=== PATIENT | male | born 1955 | race Caucasian/White ===

== ENCOUNTER 2022-11-17 10:41 | Observation (INO) | payer OTHER ==
--- OUTSIDE RECORDS SUMMARY | 2022-11-17 10:45 | XMS REPORT | Continuity of Care Document ---
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 2-08 Or thope s s 00:00: dic 00 Sports Medicin e Displaceme Displaceme Problem Active A zalea nt of nt of 2-08 [facility] cervical Cervical 00:00: dic interverte Interverte 00 Sp orts bral disc bral Disc Medi amna without without e myelopathy Myelopathy Cervico-oc Cervico-oc Problem Active A zalea cipital cipital 2-08 [facility] neuralgia Neuralgia 00:00: dic 00 Sports Medicin e 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 00:00: dic of left of Left 00 Sports wrist Wrist Medicin e 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 00:00: dic of right of Right 00 Sports wrist Wrist Medicin e Ulnar Ulnar Problem Active 2021-02 Lisa neuropathy Neuropathy 0-20 Or thope of left of Left 00:00: dic arm Arm 00 Sports Medicin e Ulnar Ulnar Problem Active 2021-02 Lisa neuropathy Neuropathy 0-20 Or thope of right of Right 00:00: dic arm Arm 00 Sports Medicin e Cervical Cervical Problem Active Azale a radiculopa Radiculopa 9-20 Or thope thy thy 00:00: dic 00 Sports Medicin e Osteoarthr Osteoarthr Problem Active A shraddhasanjayjorge itis of itis of 2-20 Orthope knee Knee 00:00: dic 00 Sports Medicin e Knee pain Knee Pain Problem Active Aza sommer 2-20 Orthope 00:00: dic 00 Sports Medicin e Lumbar Lumbar Problem Active 2017-02 Lisa disc Disc 2-31 Orthope prolapse Prolapse 00:00: dic with with 00 Sports radiculopa Radiculopa Me dicin thy thy e Degenerati Degenerati Problem Active 2017-02 A emily on of on of 2-31 [facility] lumbar Lumbar 00:00: dic interverte Interverte 00 Sp orts bral disc bral Disc Medi amna e Neoplasm Neoplasm Problem Active 2017-02 Azasanjay a of of 2-26 Orthope uncertain Uncertain 00:00: dic behavior Behavior 00 Sports of of Medicin connective Connective e and soft and Soft tissue Tissue Carpal Carpal Problem Active 2017-02 Lisa tunnel Tunnel 2-13 Orthope syndrome Syndrome 00:00: dic 00 Sports Medicin e 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 osteoarthr Osteoarthr 2-13 Or thope itis itis 00:00: dic 00 Sports Medicin e Degenerati Degenerati Problem Active 2017-02 A zalea ve joint ve Joint 2-13 Orthop e disease of Disease of 00:00: di c hand Hand 00 Sports Medicin e Ulnar Ulnar Problem Active 2017-02 Lisa nerve Nerve 2-13 Orthope entrapment Entrapment 00:00: di c at elbow at Elbow 00 Sports Medicin e Lumbar Lumbar Problem Active 2017-02 Lisa radiculopa Radiculopa 2-07 Or thope thy thy 00:00: dic 00 Sports Medicin e 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:00: dic syndrome Syndrome 00 Sports Medicin e Connective Connective Problem Active 2017-02 A emily tissue and Tissue and 1-15 Or thope disc Disc 00:00: dic stenosis Stenosis 00 Sports of of Medicin interverte Interverte e bral bral foramina Foramina Spondyloli Spondyloli Problem Active 2017-02 A emily sthesis sthesis 1-15 Orthope 00:00: dic 00 Sports Medicin e Bilateral Bilateral Problem Active 2017-02 Aza sommer carpal Carpal 1-15 Orth[facility] tunnel Tunnel 00:00: dic syndrome Syndrome 00 Sports Medicin e Chronic Chronic Problem Active 2017-02 Lisa pain Pain 1-15 [facility] syndrome Syndrome 00:00: dic 00 Sports Medicin e Acquired Acquired Problem Active 2014-02 Azale a hallux Hallux 1-06 Orthope malleus Malleus 00:00: dic 00 Sports Medicin e Metatarsal Metatarsal Problem Active 2014-02 A emily annalise annalise 106 Orthope 00:00: dic 00 Sports Medicin e Spinal Spinal Problem Active Lisa stenosis Stenosis 6-30 Orthop e of lumbar of Lumbar 00:00: dic region Region 00 Sports Medicin e Lumbosacra Lumbosacra Problem Active A shraddhalea l l 6-11 Orthope spondylosi Spondylosi 00:00: di c s without s without 00 Spor ts myelopathy Myelopathy Me dicin e Radiculiti Radiculiti Problem Active A emily s due to s Due to 6-11 Orthop e displaceme Displaceme 00:00: di c nt of nt of 00 Sports lumbar Lumbar Medicin interverte Interverte e bral disc bral Disc Degenerati Degenerati Problem Active A emily on of on of 6-11 Orthope cervicotho Cervicotho 00:00: di c racic racic 00 Sports interverte Interverte Me dicin bral disc bral Disc e Low back Low Back Problem Active Azale a pain Pain 6-11 Orthope 00:00: dic 00 Sports Medicin e Hypertensi Hypertensi Problem Active A zalea ve ve 09 [facility]ope disorder Disorder 00:00: dic 00 Sports Medicin e Procedure Procedure Problem Active Aza sommer aiding Aiding 4-22 Orthope diagnosis Diagnosis 00:00: dic 00 Sports Medicin e Multiple-l Multiple-l Problem Active Jorge brumfield 6-03 [facility]ope thoracic Thoracic 00:00: dic spondylosi Spondylosi 00 Sp orts s with s with Medicin radiculopa Radiculopa e thy thy Complete Complete Problem Active Azale a lesion of Lesion of 6-03 Orth ope cervical Cervical 00:00: dic spinal Spinal 00 Sports cord at C6 Cord at C6 Me dicin level Level e Arthropath Arthropath Problem Active A emily y of right y of Right 9-21 Or thope shoulder Shoulder 00:00: dic 00 Sports Medicin e Pain in Pain in Problem Active Lisa thoracic Thoracic 2-10 Orthop e spine Spine 00:00: dic 00 Sports Medicin e Allergies, Adverse Reactions, Alerts Allergy Allergy Status Severity Reaction(s) Onset Inactive Treating Comm ents Source Name Type Date Date Clinician No Known DA Active GA 2017-02 [facility] [place] [facility] 00:00: [facility] 00 [facility] No Known DA Active GA 2017-02 [facility]23 [place] [facility] 00:[facility]: [facility] 00 [facility] hydrocod DA Active [place] 2017-02 [facility] [place] 00:00: [facility] 00 dic [facility] No Known DA Active GA 2017-02 [facility] [place] [facility] 00:[facility]: [facility]ope s 00 dic [facility]ospita [facility] hydrocod DA Active [place] 2017-02 [facility] [place] 00:00: [facility] 00 dic [facility]ospita [facility] hydrocod DA Active GA 2014-02 [facility] [place] 00:00: [facility] 00 dic [facility]ospita l Hydrocod Allergy Active Lisa one to 9-10 Orthope substanc 00:00: dic e 00 Sports Medicin e Social History Smoking Status Start Date Stop Date Source Never Smoker Lisa [facility] Medicine Medications Ordered Filled Start Stop Current Ordering Indication Dosage Frequency Signature Comments Components Source Medication Medication Date Date Medication? Clinician (SIG) Name Name lovastatin lovastatin 2017-02 No lovastatin Lisa 40 mg 40 mg 2-07 40 mg [facility] tablet RX tablet RX 00:00: tablet RX dic by other MD by other MD 00 by other Sports MD Daniella dickersonfalula venlafaxine 2017-02 No venlafaxin Lisa 75 mg 75 mg 2-07 e 75 mg Orthope tablet RX tablet RX 00:00: tablet RX dic by other MD by other 00 by other Sports MD Brewer e lovastatin lovastatin 2017-02 No lovastatin Lisa 40 mg 40 mg 2-07 40 mg [facility] tablet RX tablet RX 00:00: tablet RX dic by other MD by other 00 by other Sports MD Daniella ramesh venlafaxine venlafaxine 2017-02 No venlafaxin Lisa 75 mg 75 mg 2-07 e 75 mg Orthope tablet RX tablet RX 00:00: tablet RX dic by other MD by other 00 by other Sports MD Brewer e lovastatin lovastatin 2017-02 No lovastatin Lisa 40 mg 40 mg 2-07 40 mg [facility] tablet RX tablet RX 00:00: tablet RX dic by other MD by other 00 by other Sports MD Daniella ramesh venlafaxine venlafaxine 2017-02 No venlafaxin Lisa 75 mg 75 mg 2-07 e 75 mg Orth[facility] tablet RX tablet RX 00:00: tablet RX dic by other MD by other 00 by other Sports MD Brewer e lovastatin lovastatin 2017-02 No lovastatin Lisa 40 mg 40 mg 2-07 40 mg Orth[facility] tablet RX tablet RX 00:00: tablet RX dic by other MD by other 00 by other Sports MD Brewer e venlafaxine venlafaxine 2017-02 No venlafaxin Lisa 75 mg 75 mg 2-07 e 75 mg Orthope tablet RX tablet RX 00:00: tablet RX dic by other MD by other 00 by other Sports MD Brewer e lovastatin lovastatin 2017-02 No lovastatin Lisa 40 mg 40 mg 2-07 40 mg [facility] tablet RX tablet RX 00:00: tablet RX dic by other MD by other 00 by other Sports MD Brewer e venlafaxine venlafaxine 2017-02 No venlafaxin Lisa 75 mg 75 mg 2-07 e 75 mg Orthope tablet RX tablet RX 00:00: tablet RX dic by other MD by other 00 by other Sports MD Dixonin e lovastatin lovastatin 2017-02 No lovastatin Lisa 40 mg 40 mg 2-07 40 mg Orth[facility] tablet RX tablet RX 00:00: tablet RX dic by other MD by other MD 00 by other Sports Medicmarj e venlafaxine venlafaxine 2017-02 No venlafaxin Lisa 75 mg 75 mg 2-07 e 75 mg Orthope tablet RX tablet RX 00:00: tablet RX dic by other MD by other 00 by other Sports MD Daniella ramesh triamcinolo triamcinolo 2017-02 No triamcinol Lisa ne ne 1-15 one Orthope acetonide acetonide 00:00: acetonide dic 0.1 0.1 00 0.1 Sports %-emollient %-emollient %-emollien Medicin comb.no.45 comb.no.45 t e topical topical comb.no.45 cream cream topical cream triamcinolo triamcinolo 2017-02 No triamcinol Lisa ne ne 1-15 one Orthope acetonide acetonide 00:00: acetonide dic 0.1 0.1 00 0.1 Sports %-emollient %-emollient %-emollien Medicin comb.no.45 comb.no.45 t e topical topical comb.no.45 cream cream topical cream triamcinolo triamcinolo 2017-02 No triamcinol Lisa ne ne 1-15 one Orthope acetonide acetonide 00:00: acetonide dic 0.1 0.1 00 0.1 Sports %-emollient %-emollient %-emollien Medicin comb.no.45 comb.no.45 t e topical topical comb.no.45 cream cream topical cream triamcinolo triamcinolo 2017-02 No triamcinol Lisa ne ne 1-15 one Orthope acetonide acetonide 00:00: acetonide dic 0.1 0.1 00 0.1 Sports %-emollient %-emollient %-emollien Medicin comb.no.45 comb.no.45 t e topical topical comb.no.45 cream cream topical cream triamcinolo triamcinolo 2017-02 No triamcinol Lisa ne ne 1-15 one Orthope acetonide acetonide 00:00: acetonide dic 0.1 0.1 00 0.1 Sports %-emollient %-emollient %-emollien Medicin comb.no.45 comb.no.45 t e topical topical comb.no.45 cream cream topical cream amlodipine amlodipine No amlodipine Lisa 10 mg 10 mg 6-01 10 mg Orthope tablet tablet 00:00: tablet dic Sports Medicin e nabumetone nabumetone No nabumetone Lisa 750 mg 750 mg 6-01 750 mg Orthope tablet tablet 00:00: tablet dic Sports Medicin e amlodipine amlodipine No amlodipine Lisa 10 mg 10 mg 6-01 10 mg Orthope tablet tablet 00:00: tablet dic Sports Medicin e nabumetone nabumetone No nabumetone Lisa 750 mg 750 mg 6- 750 mg Orthope tablet tablet 00:00: tablet dic Sports Medicin e amlodipine amlodipine No amlodipine Lisa 10 mg 10 mg 6-01 10 mg Orthope tablet tablet 00:00: tablet dic Sports Medicin e nabumetone nabumetone No nabumetone Lisa 750 mg 750 mg 6-01 750 mg Orthope tablet tablet 00:00: tablet dic 00 Sports Medicin e amlodipine amlodipine No amlodipine Lisa 10 mg 10 mg 6-01 10 mg Orthope tablet tablet 00:00: tablet dic Sports Medicin e nabumetone nabumetone No nabumetone Lisa 750 mg 750 mg 6-01 750 mg [facility]ope tablet tablet 00:00: tablet dic Sports Medicin e amlodipine amlodipine No amlodipine Lisa 10 mg 10 mg 6-01 10 mg Orthope tablet tablet 00:00: tablet dic 00 Sports Medicin e nabumetone nabumetone No nabumetone Lisa 750 mg 750 mg 6-01 750 mg [facility] tablet tablet 00:00: tablet dic 00 Sports Medicin e amiloride 5 amiloride 5 No amiloride Lisa mg tablet mg tablet 1-27 5 mg Ortho pe 00:00: tablet dic Sports Medicin e Effexor XR Effexor XR No Effexor XR Lisa 150 mg 150 mg 1-27 150 mg Orthope capsule,ext capsule,ext 00:00: capsule,ex dic ended ended tended Sports release release release Medici n e Lotrel 10 Lotrel 10 No Lotrel 10 Lisa mg-40 mg mg-40 mg 1-27 mg-40 mg Ort hope capsule capsule 00:00: capsule dic 00 Sports Medicin e amiloride 5 amiloride 5 No amiloride Lisa mg tablet mg tablet 1-27 5 mg Ortho pe 00:00: tablet dic Sports Medicin e Effexor XR Effexor XR No Effexor XR Lisa 150 mg 150 mg 1-27 150 mg Orthope capsule,ext capsule,ext 00:00: capsule,ex dic ended ended tended Sports release release release Medici n e Lotrel 10 Lotrel 10 No Lotrel 10 Lisa mg-40 mg mg-40 mg 1-27 mg-40 mg Ort hope capsule capsule 00:00: capsule dic Sports Medicin e amiloride 5 amiloride 5 No amiloride Lisa mg tablet mg tablet 1-27 5 mg Ortho pe 00:00: tablet dic Sports Medicin e Effexor XR Effexor XR No Effexor XR Lisa 150 mg 150 mg 1-27 150 mg Orthope capsule,ext capsule,ext 00:00: capsule,ex dic ended ended tended Sports release release release Medici n e Lotrel 10 Lotrel 10 No Lotrel 10 Lisa mg-40 mg mg-40 mg 1-27 mg-40 mg Ort hope capsule capsule 00:00: capsule dic Sports Medicin e amiloride 5 amiloride 5 No amiloride Lisa mg tablet mg tablet 1-27 5 mg Ortho pe 00:00: tablet dic Sports Medicin e Effexor XR Effexor XR No Effexor XR Lisa 150 mg 150 mg 1-27 150 mg Orthope capsule,ext capsule,ext 00:00: capsule,ex dic ended ended tended Sports release release release Medici n e Lotrel 10 Lotrel 10 No Lotrel 10 Lisa mg-40 mg mg-40 mg 1-27 mg-40 mg Ort hope capsule capsule 00:00: capsule dic 00 Sports Medicin e amiloride 5 amiloride 5 No amiloride Lisa mg tablet mg tablet 1-27 5 mg Ortho pe 00:00: tablet dic 00 Sports Medicin e Effexor XR Effexor XR No Effexor XR Lisa 150 mg 150 mg 1-27 150 mg Orthope capsule,ext capsule,ext 00:00: capsule,ex dic ended ended 00 tended Sports release release release Medici n e Lotrel 10 Lotrel 10 No Lotrel 10 Lisa mg-40 mg mg-40 mg 1-27 mg-40 mg Ort hope capsule capsule 00:00: capsule dic 00 Sports Daniella ramesh amitriptyli amitriptyli No amitriptyl Lisa ne 10 mg ne 10 mg 6-09 ine 10 mg Or thope tablet RX tablet RX 00:00: tablet RX dic by other MD by other 00 by other Sports MD Daniella castañedaiptshannan castañedaiptyli No amitriptyl Lisa ne 10 mg ne 10 mg 6-09 ine 10 mg Or thope tablet RX tablet RX 00:00: tablet RX dic by other MD by other 00 by other Sports MD Anjelica castañedaiptshannan No amitriptyl Lisa ne 10 mg ne 10 mg 6-09 ine 10 mg Or thope tablet RX tablet RX 00:00: tablet RX dic by other MD by other 00 by other Sports MD Anjelica pabon No amitriptyl Lisa ne 10 mg ne 10 mg 6-09 ine 10 mg Or thope tablet RX tablet RX 00:00: tablet RX dic by other MD by other 00 by other Sports MD Anjelica pabon No amitriptyl Lisa ne 10 mg ne 10 mg 6-09 ine 10 mg Or thope tablet RX tablet RX 00:00: tablet RX dic by other MD by other 00 by other Sports MD Daniella jenningsylmag minortriptyli No amitriptyl Lisa ne 10 mg ne 10 mg 6-09 ine 10 mg Or thope tablet RX tablet RX 00:00: tablet RX dic by other MD by other 00 by other Sports MD Medicin e amitriptyli amitriptyli No amitriptyl Lisa ne 150 mg ne 150 mg ine 150 mg [facility] tablet tablet tablet dic Sports Medicin e amlodipine amlodipine No amlodipine Lisa 5 mg tablet 5 mg tablet 5 mg O rthope tablet dic Sports Medicin e amoxicillin amoxicillin No amoxicilli Lisa 875 mg 875 mg n 875 mg [facility] tablet TAKE tablet TAKE tablet dic 1 TABLET BY 1 TABLET BY TAKE 1 Sports MOUTH TWICE MOUTH TWICE TABLET BY Medicin DAILY DAILY MOUTH e TWICE DAILY atorvastati atorvastati No atorvastat Lisa n 40 mg n 40 mg in 40 mg Ortho pe tablet TAKE tablet TAKE tablet dic 1 TABLET BY 1 TABLET BY TAKE 1 Sports MOUTH AT MOUTH AT TABLET BY Pa dicin BEDTIME BEDTIME MOUTH AT e BEDTIME benzonatate benzonatate No benzonatat Lisa 200 mg 200 mg e 200 mg [facility] capsule capsule capsule dic TAKE 1 TAKE 1 TAKE 1 Sports CAPSULE BY CAPSULE BY CAPSULE BY Medicin MOUTH THREE MOUTH THREE MOUTH e TIMES DAILY TIMES DAILY THREE NEEDED NEEDED TIMES FOR COUGH FOR COUGH DAILY NEEDED FOR COUGH celecoxib celecoxib No celecoxib Lisa 200 mg 200 mg 200 mg [facility] capsule capsule capsule dic TAKE 1 TAKE 1 TAKE 1 Sports CAPSULE BY CAPSULE BY CAPSULE BY Medicin MOUTH TWICE MOUTH TWICE MOUTH e A DAY A DAY TWICE A BEFORE BEFORE DAY BEFORE SURGERY, SURGERY, SURGERY, THEN TAKE 1 THEN TAKE 1 THEN TAKE CAPSULE THE CAPSULE THE 1 CAPSULE MORNING OF MORNING OF THE SURGERY SURGERY MORNING OF SURGERY dexamethaso dexamethaso No dexamethas Lisa ne 4 mg ne 4 mg one 4 mg Ortho pe tablet TAKE tablet TAKE tablet dic 1 TABLET BY 1 TABLET BY TAKE 1 Sports MOUTH ONCE MOUTH ONCE TABLET BY Medicin DAILY DAILY MOUTH ONCE e DAILY diclofenac diclofenac No diclofenac Lisa 1 % topical 1 % topical 1 % O rthope gel APPLY gel APPLY topical di c TOPICALLY TOPICALLY gel APPLY Sports TWICE DAILY TWICE DAILY TOPICALLY Medicin TWICE e DAILY ergocalcife ergocalcife No ergocalcif Lisa rol rol carlitos Orthope (vitamin (vitamin (vitamin dic D2) 1,250 D2) 1,250 D2) 1,250 Sports mcg (50,000 mcg (50,000 mcg M edicin unit) unit) (50,000 e capsule capsule unit) TAKE 1 TAKE 1 capsule CAPSULE BY CAPSULE BY TAKE 1 MOUTH ONCE MOUTH ONCE CAPSULE BY A WEEK A WEEK MOUTH ONCE A WEEK gabapentin gabapentin No gabapentin Lisa 300 mg 300 mg 300 mg [facility] capsule capsule capsule dic TAKE 1 TAKE 1 TAKE 1 Sports CAPSULE BY CAPSULE BY CAPSULE BY Medicin MOUTH TWICE MOUTH TWICE MOUTH e A DAY FOR A DAY FOR TWICE A 30 DAYS 30 DAYS DAY FOR 30 DAYS hydrochloro hydrochloro No hydrochlor Lisa thiazide 25 thiazide 25 othiazide [facility] mg tablet mg tablet 25 mg dic TAKE 1 TAKE 1 tablet Sports TABLET BY TABLET BY TAKE 1 Med icin MOUTH ONCE MOUTH ONCE TABLET BY e DAILY DAILY MOUTH ONCE DAILY lisinopril lisinopril No lisinopril Lisa 40 mg 40 mg 40 mg [facility] tablet RX tablet RX tablet RX dic by other MD by other MD by other Sports MD Medicin e methocarbam methocarbam No methocarba Lisa ol 750 mg ol 750 mg mol 750 mg [facility] tablet tablet tablet dic Sports Medicin e methylpredn methylpredn No methylpred Lisa isolone 4 isolone 4 nisolone 4 [facility] mg tablets mg tablets mg tablets dic in a dose in a dose in a dose Sports pack TAKE pack TAKE pack TAKE Medicin DIRECTED DIRECTED e DIRECTED metoprolol metoprolol No metoprolol Lisa succinate succinate succinate [facility] ER 25 mg ER 25 mg ER 25 mg dic tablet,exte tablet,exte tablet,ext Sports nded nded ended Medicin release 24 release 24 release 24 e hr TAKE 1 hr TAKE 1 hr TAKE 1 TABLET BY TABLET BY TABLET BY MOUTH EVERY MOUTH EVERY MOUTH DAY DAY EVERY DAY montelukast montelukast No montelukas Lisa 10 mg 10 mg t 10 mg [facility] tablet TAKE tablet TAKE tablet dic 1 TABLET BY 1 TABLET BY TAKE 1 Sports MOUTH ONCE MOUTH ONCE TABLET BY Medicin DAILY DAILY MOUTH ONCE e DAILY mupirocin 2 mupirocin 2 No mupirocin Lisa % topical % topical 2 % Ortho pe ointment ointment topical dic APPLY TO APPLY TO ointment Spo rts RIGHT KNEE RIGHT KNEE APPLY TO Medicin PRE-OPERATI PRE-OPERATI RIGHT KNEE e ON ONCE ON ONCE PRE-OPERAT DAILY DAILY ION ONCE DAILY ondansetron ondansetron No ondansetro Lisa HCl 4 mg HCl 4 mg n HCl 4 mg O rthope tablet TAKE tablet TAKE tablet dic 1 TABLET BY 1 TABLET BY TAKE 1 Sports MOUTH EVERY MOUTH EVERY TABLET BY Medicin 8 HOURS 8 HOURS MOUTH e EVERY 8 HOURS oxycodone-a oxycodone-a No oxycodone- Lisa cetaminophe cetaminophe acetaminop [facility]ope n 10 mg-325 n 10 mg-325 hen 10 dic mg tablet mg tablet mg-325 mg Sports tablet Medicin e pantoprazol pantoprazol No pantoprazo Lisa e 40 mg e 40 mg le 40 mg Ortho pe tablet,mario tablet,mario tablet,del dic yed release yed release ayed S ports TAKE 1 TAKE 1 release Medicin TABLET BY TABLET BY TAKE 1 e MOUTH EVERY MOUTH EVERY TABLET BY DAY DAY MOUTH EVERY DAY prednisone prednisone No prednisone Lisa 20 mg 20 mg 20 mg [facility] tablet TAKE tablet TAKE tablet dic 1 TABLET BY 1 TABLET BY TAKE 1 Sports MOUTH ONCE MOUTH ONCE TABLET BY Medicin DAILY DAILY MOUTH ONCE e DAILY sildenafil sildenafil No sildenafil Lisa 100 mg 100 mg 100 mg [facility] tablet TAKE tablet TAKE tablet dic 1 TABLET BY 1 TABLET BY TAKE 1 Sports MOUTH ONCE MOUTH ONCE TABLET BY Medicin DAILY 30 DAILY 30 MOUTH ONCE e MINUTES MINUTES DAILY 30 PRIOR TO PRIOR TO MINUTES SEXUAL SEXUAL PRIOR TO ACTIVITY ACTIVITY SEXUAL ACTIVITY Sudogest 30 Sudogest 30 No Sudogest Lisa mg tablet mg tablet 30 mg Orth ope TAKE 1 TAKE 1 tablet dic TABLET BY TABLET BY TAKE 1 Spo rts MOUTH EVERY MOUTH EVERY TABLET BY Medicin 4 TO 6 4 TO 6 MOUTH e HOURS HOURS EVERY 4 TO NEEDED FOR NEEDED FOR 6 HOURS CONGESTION CONGESTION NEEDED FOR CONGESTION tamsulosin tamsulosin No tamsulosin Lisa 0.4 mg 0.4 mg 0.4 mg [facility] capsule capsule capsule dic TAKE 1 TAKE 1 TAKE 1 Sports CAPSULE BY CAPSULE BY CAPSULE BY Medicin MOUTH ONCE MOUTH ONCE MOUTH ONCE e DAILY DAILY DAILY tramadol 50 tramadol 50 No tramadol Lisa mg tablet mg tablet 50 mg Orth ope TAKE 1 TAKE 1 tablet dic TABLET BY TABLET BY TAKE 1 Spo rts MOUTH TWICE MOUTH TWICE TABLET BY Medicin A DAY A DAY MOUTH e NEEDED FOR NEEDED FOR TWICE A 30 DAYS 30 DAYS DAY NEEDED FOR 30 DAYS vardenafil vardenafil No vardenafil Lisa 20 mg 20 mg 20 mg [facility] tablet TAKE tablet TAKE tablet dic ONE TABLET ONE TABLET TAKE ONE Sports BY MOUTH BY MOUTH TABLET BY Medicin DIRECTED DIRECTED MOUTH e NEEDED; NEEDED; DIRECTED START: START: NEEDED; ONE-HALF ONE-HALF START: TABLET TABLET ONE-HALF DOSE; MAX DOSE; MAX TABLET OF OF DOSE; MAX 20MG/DOSE 20MG/DOSE OF PER 24 PER 24 20MG/DOSE HOURS: TAKE HOURS: TAKE PER 24 ONE HOUR ONE HOUR HOURS: BEFORE BEFORE TAKE ONE SEXUAL SEXUAL HOUR ACTIVITY ACTIVITY BEFORE SEXUAL ACTIVITY venlafaxine venlafaxine No venlafaxin Lisa ER 75 mg ER 75 mg e ER 75 mg O r[facility]ope capsule,ext capsule,ext capsule,ex dic ended ended tended Sports release 24 release 24 release 24 Medicin hr RX by hr RX by hr RX by e other MD other other acetaminoph acetaminoph No acetaminop Lisa en 300 en 300 hen 300 [facility] mg-codeine mg-codeine mg-codeine dic 30 mg 30 mg 30 mg Sports tablet TAKE tablet TAKE tablet Medicin 1 TABLET BY 1 TABLET BY TAKE 1 e MOUTH EVERY MOUTH EVERY TABLET BY 12 HOURS 12 HOURS MOUTH FOR 30 DAYS FOR 30 DAYS EVERY 12 HOURS FOR 30 DAYS amitriptyli amitriptyli No amitriptyl Lisa ne 150 mg ne 150 mg ine 150 mg [facility] tablet tablet tablet dic Sports Medicin e amlodipine amlodipine No amlodipine Lisa 5 mg tablet 5 mg tablet 5 mg O r[facility]ope tablet dic Sports Medicin e amoxicillin amoxicillin No amoxicilli Lisa 875 mg 875 mg n 875 mg [facility] tablet TAKE tablet TAKE tablet dic 1 TABLET BY 1 TABLET BY TAKE 1 Sports MOUTH TWICE MOUTH TWICE TABLET BY Medicin DAILY DAILY MOUTH e TWICE DAILY atorvastati atorvastati No atorvastat Lisa n 40 mg n 40 mg in 40 mg Ortho pe tablet TAKE tablet TAKE tablet dic 1 TABLET BY 1 TABLET BY TAKE 1 Sports MOUTH AT MOUTH AT TABLET BY Pa dicin BEDTIME BEDTIME MOUTH AT e BEDTIME benzonatate benzonatate No benzonatat Lisa 200 mg 200 mg e 200 mg [facility] capsule capsule capsule dic TAKE 1 TAKE 1 TAKE 1 Sports CAPSULE BY CAPSULE BY CAPSULE BY Medicin MOUTH THREE MOUTH THREE MOUTH e TIMES DAILY TIMES DAILY THREE NEEDED NEEDED TIMES FOR COUGH FOR COUGH DAILY NEEDED FOR COUGH celecoxib celecoxib No celecoxib Lisa 200 mg 200 mg 200 mg [facility] capsule capsule capsule dic TAKE 1 TAKE 1 TAKE 1 Sports CAPSULE BY CAPSULE BY CAPSULE BY Medicin MOUTH TWICE MOUTH TWICE MOUTH e A DAY A DAY TWICE A BEFORE BEFORE DAY BEFORE SURGERY, SURGERY, SURGERY, THEN TAKE 1 THEN TAKE 1 THEN TAKE CAPSULE THE CAPSULE THE 1 CAPSULE MORNING OF MORNING OF THE SURGERY SURGERY MORNING OF SURGERY dexamethaso dexamethaso No dexamethas Lisa ne 4 mg ne 4 mg one 4 mg Ortho pe tablet TAKE tablet TAKE tablet dic 1 TABLET BY 1 TABLET BY TAKE 1 Sports MOUTH ONCE MOUTH ONCE TABLET BY Medicin DAILY DAILY MOUTH ONCE e DAILY diclofenac diclofenac No diclofenac Lisa 1 % topical 1 % topical 1 % O rthope gel APPLY gel APPLY topical di c TOPICALLY TOPICALLY gel APPLY Sports TWICE DAILY TWICE DAILY TOPICALLY Medicin TWICE e DAILY ergocalcife ergocalcife No ergocalcif Lisa rol rol carlitos [facility] (vitamin (vitamin (vitamin dic D2) 1,250 D2) 1,250 D2) 1,250 Sports mcg (50,000 mcg (50,000 mcg M edicin unit) unit) (50,000 e capsule capsule unit) TAKE 1 TAKE 1 capsule CAPSULE BY CAPSULE BY TAKE 1 MOUTH ONCE MOUTH ONCE CAPSULE BY A WEEK A WEEK MOUTH ONCE A WEEK gabapentin gabapentin No gabapentin Lisa 300 mg 300 mg 300 mg [facility] capsule capsule capsule dic TAKE 1 TAKE 1 TAKE 1 Sports CAPSULE BY CAPSULE BY CAPSULE BY Medicin MOUTH TWICE MOUTH TWICE MOUTH e A DAY FOR A DAY FOR TWICE A 30 DAYS 30 DAYS DAY FOR 30 DAYS hydrochloro hydrochloro No hydrochlor Lisa thiazide 25 thiazide 25 othiazide [facility] mg tablet mg tablet 25 mg dic TAKE 1 TAKE 1 tablet Sports TABLET BY TABLET BY TAKE 1 Med icin MOUTH ONCE MOUTH ONCE TABLET BY e DAILY DAILY MOUTH ONCE DAILY lisinopril lisinopril No lisinopril Lisa 40 mg 40 mg 40 mg [facility] tablet RX tablet RX tablet RX dic by other MD by other MD by other Sports MD Medicin e methocarbam methocarbam No methocarba Lisa ol 750 mg ol 750 mg mol 750 mg [facility] tablet tablet tablet dic Sports [facility] e methylpredn methylpredn No methylpred Lisa isolone 4 isolone 4 nisolone 4 [facility] mg tablets mg tablets mg tablets dic in a dose in a dose in a dose Sports pack TAKE pack TAKE pack TAKE Medicin DIRECTED DIRECTED e DIRECTED metoprolol metoprolol No metoprolol Lisa succinate succinate succinate [facility] ER 25 mg ER 25 mg ER 25 mg dic tablet,exte tablet,exte tablet,ext Sports nded nded ended Medicin release 24 release 24 release 24 e hr TAKE 1 hr TAKE 1 hr TAKE 1 TABLET BY TABLET BY TABLET BY MOUTH EVERY MOUTH EVERY MOUTH DAY DAY EVERY DAY montelukast montelukast No montelukas Lisa 10 mg 10 mg t 10 mg [facility] tablet TAKE tablet TAKE tablet dic 1 TABLET BY 1 TABLET BY TAKE 1 Sports MOUTH ONCE MOUTH ONCE TABLET BY Medicin DAILY DAILY MOUTH ONCE e DAILY mupirocin 2 mupirocin 2 No mupirocin Lisa % topical % topical 2 % [facility] pe ointment ointment topical dic APPLY TO APPLY TO ointment Spo rts RIGHT KNEE RIGHT KNEE APPLY TO Medicin PRE-OPERATI PRE-OPERATI RIGHT KNEE e ON ONCE ON ONCE PRE-OPERAT DAILY DAILY ION ONCE DAILY ondansetron ondansetron No ondansetro Lisa HCl 4 mg HCl 4 mg n HCl 4 mg [facility] tablet TAKE tablet TAKE tablet dic 1 TABLET BY 1 TABLET BY TAKE 1 Sports MOUTH EVERY MOUTH EVERY TABLET BY Medicin 8 HOURS 8 HOURS MOUTH e EVERY 8 HOURS oxycodone-a oxycodone-a No oxycodone- Lisa cetaminophe cetaminophe acetaminop [facility] n 10 mg-325 n 10 mg-325 hen 10 dic mg tablet mg tablet mg-325 mg Sports tablet Medicin e pantoprazol pantoprazol No pantoprazo Lisa e 40 mg e 40 mg le 40 mg [facility] pe tablet,mario tablet,mario tablet,del dic yed release yed release ayed S ports TAKE 1 TAKE 1 release [facility] TABLET BY TABLET BY TAKE 1 e MOUTH EVERY MOUTH EVERY TABLET BY DAY DAY MOUTH EVERY DAY prednisone prednisone No prednisone Lisa 20 mg 20 mg 20 mg [facility] tablet TAKE tablet TAKE tablet dic 1 TABLET BY 1 TABLET BY TAKE 1 Sports MOUTH ONCE MOUTH ONCE TABLET BY Medicin DAILY DAILY MOUTH ONCE e DAILY sildenafil sildenafil No sildenafil Lias 100 mg 100 mg 100 mg [facility] tablet TAKE tablet TAKE tablet dic 1 TABLET BY 1 TABLET BY TAKE 1 Sports MOUTH ONCE MOUTH ONCE TABLET BY Medicin DAILY 30 DAILY 30 MOUTH ONCE e MINUTES MINUTES DAILY 30 PRIOR TO PRIOR TO MINUTES SEXUAL SEXUAL PRIOR TO ACTIVITY ACTIVITY SEXUAL ACTIVITY Sudogest 30 Sudogest 30 No Sudogest Lisa mg tablet mg tablet 30 mg [facility] TAKE 1 TAKE 1 tablet dic TABLET BY TABLET BY TAKE 1 Spo rts MOUTH EVERY MOUTH EVERY TABLET BY Medicin 4 TO 6 4 TO 6 MOUTH e HOURS HOURS EVERY 4 TO NEEDED FOR NEEDED FOR 6 HOURS CONGESTION CONGESTION NEEDED FOR CONGESTION tamsulosin tamsulosin No tamsulosin Lisa 0.4 mg 0.4 mg 0.4 mg [facility] capsule capsule capsule dic TAKE 1 TAKE 1 TAKE 1 Sports CAPSULE BY CAPSULE BY CAPSULE BY Medicin MOUTH ONCE MOUTH ONCE MOUTH ONCE e DAILY DAILY DAILY tramadol 50 tramadol 50 No tramadol Lisa mg tablet mg tablet 50 mg [facility] TAKE 1 TAKE 1 tablet dic TABLET BY TABLET BY TAKE 1 Spo rts MOUTH TWICE MOUTH TWICE TABLET BY Medicin A DAY A DAY MOUTH e NEEDED FOR NEEDED FOR TWICE A 30 DAYS 30 DAYS DAY NEEDED FOR 30 DAYS vardenafil vardenafil No vardenafil Lisa 20 mg 20 mg 20 mg [facility] tablet TAKE tablet TAKE tablet dic ONE TABLET ONE TABLET TAKE ONE Sports BY MOUTH BY MOUTH TABLET BY Medicin DIRECTED DIRECTED MOUTH e NEEDED; NEEDED; DIRECTED START: START: NEEDED; ONE-HALF ONE-HALF START: TABLET TABLET ONE-HALF DOSE; MAX DOSE; MAX TABLET OF OF DOSE; MAX 20MG/DOSE 20MG/DOSE OF PER 24 PER 24 20MG/DOSE HOURS: TAKE HOURS: TAKE PER 24 ONE HOUR ONE HOUR HOURS: BEFORE BEFORE TAKE ONE SEXUAL SEXUAL HOUR ACTIVITY ACTIVITY BEFORE SEXUAL ACTIVITY venlafaxine venlafaxine No venlafaxin Lisa ER 75 mg ER 75 mg e ER 75 mg [facility] capsule,ext capsule,ext capsule,ex dic ended ended tended Sports release 24 release 24 release 24 Medicin hr RX by hr RX by hr RX by e other MD other other acetaminoph acetaminoph No acetaminop Lisa en 300 en 300 hen 300 [facility] mg-codeine mg-codeine mg-codeine dic 30 mg 30 mg 30 mg [facility] tablet TAKE tablet TAKE tablet Medicin 1 TABLET BY 1 TABLET BY TAKE 1 e MOUTH EVERY MOUTH EVERY TABLET BY 12 HOURS 12 HOURS MOUTH FOR 30 DAYS FOR 30 DAYS EVERY 12 HOURS FOR 30 DAYS acetaminoph acetaminoph No acetaminop Lisa en 300 en 300 hen 300 [facility] mg-codeine mg-codeine mg-codeine dic 60 mg 60 mg 60 mg [facility] tablet TAKE tablet TAKE tablet Medicin 1 TABLET BY 1 TABLET BY TAKE 1 e MOUTH EVERY MOUTH EVERY TABLET BY 6 HOURS 6 HOURS MOUTH NEEDED FOR NEEDED FOR EVERY 6 15 DAYS 15 DAYS HOURS NEEDED FOR 15 DAYS albuterol albuterol No albuterol Lisa sulfate 2.5 sulfate 2.5 sulfate [facility] mg/3 mL mg/3 mL 2.5 mg/3 dic (0.083 %) (0.083 %) mL (0.083 Sports solution solution %) Medicin for for solution e nebulizatio nebulizatio for n USE 1 n USE 1 nebulizati VIAL IN VIAL IN on USE 1 NEBULIZER NEBULIZER VIAL IN EVERY 6 EVERY 6 NEBULIZER HOURS HOURS EVERY 6 NEEDED FOR NEEDED FOR HOURS SHORTNESS SHORTNESS NEEDED FOR OF BREATH OF BREATH SHORTNESS AND FOR AND FOR OF BREATH COUGH COUGH AND FOR COUGH amitriptyli amitriptyli No amitriptyl Lisa ne 150 mg ne 150 mg ine 150 mg [facility] tablet tablet tablet dic Sports Medicin e amlodipine amlodipine No amlodipine Lisa 5 mg tablet 5 mg tablet 5 mg [facility] tablet dic Sports Medicin e amoxicillin amoxicillin No amoxicilli Lisa 500 mg 500 mg n 500 mg [facility] capsule capsule capsule dic TAKE 1 TAKE 1 TAKE 1 Sports CAPSULE BY CAPSULE BY CAPSULE BY Medicin MOUTH THREE MOUTH THREE MOUTH e TIMES DAILY TIMES DAILY THREE TIMES DAILY amoxicillin amoxicillin No amoxicilli Lisa 875 mg 875 mg n 875 mg [facility] tablet TAKE tablet TAKE tablet dic 1 TABLET BY 1 TABLET BY TAKE 1 Sports MOUTH TWICE MOUTH TWICE TABLET BY Medicin DAILY DAILY MOUTH e TWICE DAILY atorvastati atorvastati No atorvastat Lisa n 40 mg n 40 mg in 40 mg [facility] pe tablet TAKE tablet TAKE tablet dic 1 TABLET BY 1 TABLET BY TAKE 1 Sports MOUTH AT MOUTH AT TABLET BY Pa dicin BEDTIME BEDTIME MOUTH AT e BEDTIME azithromyci azithromyci No azithromyc Lisa n 250 mg n 250 mg in 250 mg Or [facility] tablet TAKE tablet TAKE tablet dic 2 TABLETS 2 TABLETS TAKE 2 Spo rts BY MOUTH ON BY MOUTH ON TABLETS BY Medicin DAY 1, AND DAY 1, AND MOUTH ON e THEN TAKE 1 THEN TAKE 1 DAY 1, AND TABLET BY TABLET BY THEN TAKE MOUTH ONCE MOUTH ONCE 1 TABLET A DAY ON A DAY ON BY MOUTH DAY 2 DAY 2 ONCE A DAY THROUGH DAY THROUGH DAY ON DAY 2 5 5 THROUGH DAY 5 benzonatate benzonatate No benzonatat Lisa 200 mg 200 mg e 200 mg [facility] capsule capsule capsule dic TAKE 1 TAKE 1 TAKE 1 Sports CAPSULE BY CAPSULE BY CAPSULE BY Medicin MOUTH THREE MOUTH THREE MOUTH e TIMES DAILY TIMES DAILY THREE NEEDED NEEDED TIMES FOR COUGH FOR COUGH DAILY NEEDED FOR COUGH clindamycin clindamycin No clindamyci Lisa HCl 300 mg HCl 300 mg n HCl 300 [facility] capsule capsule mg capsule dic TAKE 1 TAKE 1 TAKE 1 Sports CAPSULE BY CAPSULE BY CAPSULE BY Medicin MOUTH THREE MOUTH THREE MOUTH e TIMES DAILY TIMES DAILY THREE TIMES DAILY dexamethaso dexamethaso No dexamethas Lisa ne 4 mg ne 4 mg one 4 mg [facility] pe tablet TAKE tablet TAKE tablet dic 1 TABLET BY 1 TABLET BY TAKE 1 Sports MOUTH ONCE MOUTH ONCE TABLET BY Medicin DAILY DAILY MOUTH ONCE e DAILY diclofenac diclofenac No diclofenac Lisa 1 % topical 1 % topical 1 % [facility] gel APPLY gel APPLY topical di c TOPICALLY TOPICALLY gel APPLY Sports TWICE DAILY TWICE DAILY TOPICALLY Medicin TWICE e DAILY ergocalcife ergocalcife No ergocalcif Lisa rol rol carlitos [facility] (vitamin (vitamin (vitamin dic D2) 1,250 D2) 1,250 D2) 1,250 Sports mcg (50,000 mcg (50,000 mcg M edicin unit) unit) (50,000 e capsule capsule unit) TAKE 1 TAKE 1 capsule CAPSULE BY CAPSULE BY TAKE 1 MOUTH ONCE MOUTH ONCE CAPSULE BY A WEEK A WEEK MOUTH ONCE A WEEK etodolac etodolac No 1capsul BID etodolac Lisa 300 mg 300 mg e(s) 300 mg [facility] capsule capsule capsule dic Take 1 Take 1 Take 1 Sports capsule capsule capsule Medici n twice a day twice a day twice a e by oral by oral day by route with route with oral route meals for meals for with meals 30 days. 30 days. for 30 days. gabapentin gabapentin No gabapentin Lisa 300 mg 300 mg 300 mg [facility] capsule capsule capsule dic TAKE 1 TAKE 1 TAKE 1 Sports CAPSULE BY CAPSULE BY CAPSULE BY Medicin MOUTH THREE MOUTH THREE MOUTH e TIMES DAILY TIMES DAILY THREE FOR 30 DAYS FOR 30 DAYS TIMES DAILY FOR 30 DAYS hydrochloro hydrochloro No hydrochlor Lisa thiazide 25 thiazide 25 othiazide [facility] mg tablet mg tablet 25 mg dic TAKE 1 TAKE 1 tablet Sports TABLET BY TABLET BY TAKE 1 Med icin MOUTH ONCE MOUTH ONCE TABLET BY e DAILY DAILY MOUTH ONCE DAILY InnoSpire InnoSpire No InnoSpire Lisa Essence [employer] [facility] e device USE device USE device USE dic DIRECTED DIRECTED S ports DIRECTED Medicin e lisinopril lisinopril No lisinopril Lisa 40 mg 40 mg 40 mg [facility] tablet RX tablet RX tablet RX dic by other MD by other MD by other Sports MD Medicin e methocarbam methocarbam No methocarba Lisa ol 750 mg ol 750 mg mol 750 mg [facility] tablet tablet tablet dic Sports Medicin e methylpredn methylpredn No methylpred Lisa isolone 4 isolone 4 nisolone 4 [facility] mg tablets mg tablets mg tablets dic in a dose in a dose in a dose Sports pack TAKE pack TAKE pack TAKE [facility] BY MOUTH BY MOUTH BY MOUTH e DIRECTED ON DIRECTED ON INSIDE OF INSIDE OF DIRECTED PACKAGE PACKAGE ON INSIDE OF PACKAGE metoprolol metoprolol No metoprolol Lisa succinate succinate succinate [facility] ER 25 mg ER 25 mg ER 25 mg dic tablet,exte tablet,exte tablet,ext Sports nded nded ended Medicin release 24 release 24 release 24 e hr TAKE 1 hr TAKE 1 hr TAKE 1 TABLET BY TABLET BY TABLET BY MOUTH EVERY MOUTH EVERY MOUTH DAY DAY EVERY DAY montelukast montelukast No montelukas Lisa 10 mg 10 mg t 10 mg [facility] tablet TAKE tablet TAKE tablet dic 1 TABLET BY 1 TABLET BY TAKE 1 Sports MOUTH ONCE MOUTH ONCE TABLET BY Medicin DAILY DAILY MOUTH ONCE e DAILY mupirocin 2 mupirocin 2 No mupirocin Lisa % topical % topical 2 % [facility] pe ointment ointment topical dic APPLY TO APPLY TO ointment Spo rts RIGHT KNEE RIGHT KNEE APPLY TO Medicin PRE-OPERATI PRE-OPERATI RIGHT KNEE e ON ONCE ON ONCE PRE-OPERAT DAILY DAILY ION ONCE DAILY ondansetron ondansetron No ondansetro Lisa HCl 4 mg HCl 4 mg n HCl 4 mg [facility] tablet TAKE tablet TAKE tablet dic 1 TABLET BY 1 TABLET BY TAKE 1 Sports MOUTH EVERY MOUTH EVERY TABLET BY Medicin 8 HOURS 8 HOURS MOUTH e EVERY 8 HOURS oxycodone-a oxycodone-a No oxycodone- Lisa cetaminophe cetaminophe acetaminop [facility] n 10 mg-325 n 10 mg-325 hen 10 dic mg tablet mg tablet mg-325 mg Sports tablet Medicin e pantoprazol pantoprazol No pantoprazo Lisa e 40 mg e 40 mg le 40 mg [facility] pe tablet,mario tablet,mario tablet,del dic yed release yed release ayed S ports TAKE 1 TAKE 1 release [facility] TABLET BY TABLET BY TAKE 1 e MOUTH EVERY MOUTH EVERY TABLET BY DAY DAY MOUTH EVERY DAY prednisone prednisone No prednisone Lisa 20 mg 20 mg 20 mg [facility] tablet TAKE tablet TAKE tablet dic 2 TABLET BY 2 TABLET BY TAKE 2 Sports MOUTH ONCE MOUTH ONCE TABLET BY Medicin DAILY FOR 3 DAILY FOR 3 MOUTH ONCE e DAYS, THEN DAYS, THEN DAILY FOR TAKE 1 TAKE 1 3 DAYS, TABLET ONCE TABLET ONCE THEN TAKE DAILY FOR 2 DAILY FOR 2 1 TABLET DAYS DAYS ONCE DAILY FOR 2 DAYS promethazin promethazin No promethazi Lisa e-DM 6.25 e-DM 6.25 ne-DM 6.25 [facility] mg-15 mg/5 mg-15 mg/5 mg-15 mg/5 dic mL oral mL oral mL oral Sports syrup TAKE syrup TAKE syrup TAKE Medic[facility] 10 ML BY 10 ML BY 10 ML BY e MOUTH EVERY MOUTH EVERY MOUTH 6 TO 8 6 TO 8 EVERY 6 TO HOURS HOURS 8 HOURS NEEDED FOR NEEDED FOR NEEDED FOR COUGH COUGH COUGH sildenafil sildenafil No sildenafil Lisa 100 mg 100 mg 100 mg [facility] tablet TAKE tablet TAKE tablet dic 1 TABLET BY 1 TABLET BY TAKE 1 Sports MOUTH ONCE MOUTH ONCE TABLET BY Medicin DAILY 30 DAILY 30 MOUTH ONCE e MINUTES MINUTES DAILY 30 PRIOR TO PRIOR TO MINUTES SEXUAL SEXUAL PRIOR TO ACTIVITY ACTIVITY SEXUAL ACTIVITY Sudogest 30 Sudogest 30 No Sudogest Lisa mg tablet mg tablet 30 mg [facility] TAKE 1 TAKE 1 tablet dic TABLET BY TABLET BY TAKE 1 Spo rts MOUTH EVERY MOUTH EVERY TABLET BY Medicin 4 TO 6 4 TO 6 MOUTH e HOURS HOURS EVERY 4 TO NEEDED FOR NEEDED FOR 6 HOURS CONGESTION CONGESTION NEEDED FOR CONGESTION sulfamethox sulfamethox No sulfametho Lisa azole 800 azole 800 xazole 800 [facility] mg-trimetho mg-trimetho mg-trimeth dic prim 160 mg prim 160 mg oprim 160 Sports tablet TAKE tablet TAKE mg tablet [facility] 1 TABLET BY 1 TABLET BY TAKE 1 e MOUTH TWICE MOUTH TWICE TABLET BY DAILY DAILY MOUTH TWICE DAILY tamsulosin tamsulosin No tamsulosin Lisa 0.4 mg 0.4 mg 0.4 mg [facility] capsule capsule capsule dic TAKE 1 TAKE 1 TAKE 1 Sports CAPSULE BY CAPSULE BY CAPSULE BY [facility] MOUTH ONCE MOUTH ONCE MOUTH ONCE e DAILY DAILY DAILY tramadol 50 tramadol 50 No tramadol Lisa mg tablet mg tablet 50 mg [facility] TAKE 1 TAKE 1 tablet dic TABLET BY TABLET BY TAKE 1 Spo rts MOUTH TWICE MOUTH TWICE TABLET BY Medicin A DAY A DAY MOUTH e NEEDED FOR NEEDED FOR TWICE A 30 DAYS 30 DAYS DAY NEEDED FOR 30 DAYS vardenafil vardenafil No vardenafil Lisa 20 mg 20 mg 20 mg [facility] tablet TAKE tablet TAKE tablet dic ONE TABLET ONE TABLET TAKE ONE Sports BY MOUTH BY MOUTH TABLET BY Medicin DIRECTED DIRECTED MOUTH e NEEDED; NEEDED; DIRECTED START: START: NEEDED; ONE-HALF ONE-HALF START: TABLET TABLET ONE-HALF DOSE; MAX DOSE; MAX TABLET OF OF DOSE; MAX 20MG/DOSE 20MG/DOSE OF PER 24 PER 24 20MG/DOSE HOURS: TAKE HOURS: TAKE PER 24 ONE HOUR ONE HOUR HOURS: BEFORE BEFORE TAKE ONE SEXUAL SEXUAL HOUR ACTIVITY ACTIVITY BEFORE SEXUAL ACTIVITY venlafaxine venlafaxine No venlafaxin Lisa ER 75 mg ER 75 mg e ER 75 mg [facility] capsule,ext capsule,ext capsule,ex dic ended ended tended Sports release 24 release 24 release 24 Medic[facility] hr RX by hr RX by hr RX by e other MD other other MD Heath Joe No Heath Aza sommer HFA 90 HFA 90 HFA 90 [facility] mcg/actuati mcg/actuati mcg/actuat dic on aerosol on aerosol ion Spo rts inhaler inhaler aerosol Medici n INHALE 1 TO INHALE 1 TO inhaler e 2 PUFFS BY 2 PUFFS BY INHALE 1 MOUTH EVERY MOUTH EVERY TO 2 PUFFS 4 TO 6 4 TO 6 BY MOUTH HOURS HOURS EVERY 4 TO NEEDED FOR NEEDED FOR 6 HOURS SHORTNESS SHORTNESS NEEDED FOR OF BREATH, OF BREATH, SHORTNESS COUGH, COUGH, OF BREATH, WHEEZING WHEEZING COUGH, WHEEZING acetaminoph acetaminoph No acetaminop Lisa en 300 en 300 hen 300 [facility] mg-codeine mg-codeine mg-codeine dic 30 mg 30 mg 30 mg [facility] tablet TAKE tablet TAKE tablet Medic[facility] 1 TABLET BY 1 TABLET BY TAKE 1 e MOUTH EVERY MOUTH EVERY TABLET BY 12 HOURS 12 HOURS MOUTH FOR 30 DAYS FOR 30 DAYS EVERY 12 HOURS FOR 30 DAYS acetaminoph acetaminoph No acetaminop Lisa en 300 en 300 hen 300 [facility] mg-codeine mg-codeine mg-codeine dic 60 mg 60 mg 60 mg [facility] tablet TAKE tablet TAKE tablet Medic[facility] 1 TABLET BY 1 TABLET BY TAKE 1 e MOUTH EVERY MOUTH EVERY TABLET BY 6 HOURS 6 HOURS MOUTH NEEDED FOR NEEDED FOR EVERY 6 15 DAYS 15 DAYS HOURS NEEDED FOR 15 DAYS albuterol albuterol No albuterol Lisa sulfate 2.5 sulfate 2.5 sulfate [facility] mg/3 mL mg/3 mL 2.5 mg/3 dic (0.083 %) (0.083 %) mL (0.083 Sports solution solution %) Medicin for for solution e nebulizatio nebulizatio for n USE 1 n USE 1 nebulizati VIAL IN VIAL IN on USE 1 NEBULIZER NEBULIZER VIAL IN EVERY 6 EVERY 6 NEBULIZER HOURS HOURS EVERY 6 NEEDED FOR NEEDED FOR HOURS SHORTNESS SHORTNESS NEEDED FOR OF BREATH OF BREATH SHORTNESS AND FOR AND FOR OF BREATH COUGH COUGH AND FOR COUGH amitriptyli amitriptyli No amitriptyl Lisa ne 150 mg ne 150 mg ine 150 mg [facility] tablet tablet tablet dic Sports Medicin e amlodipine amlodipine No amlodipine Lisa 5 mg tablet 5 mg tablet 5 mg [facility] tablet dic Sports Medicin e amoxicillin amoxicillin No amoxicilli Lisa 500 mg 500 mg n 500 mg [facility] capsule capsule capsule dic TAKE 1 TAKE 1 TAKE 1 Sports CAPSULE BY CAPSULE BY CAPSULE BY Medicin MOUTH THREE MOUTH THREE MOUTH e TIMES DAILY TIMES DAILY THREE TIMES DAILY amoxicillin amoxicillin No amoxicilli Lisa 875 mg 875 mg n 875 mg [facility] tablet TAKE tablet TAKE tablet dic 1 TABLET BY 1 TABLET BY TAKE 1 Sports MOUTH TWICE MOUTH TWICE TABLET BY Medicin DAILY DAILY MOUTH e TWICE DAILY atorvastati atorvastati No atorvastat Lisa n 40 mg n 40 mg in 40 mg [facility] pe tablet TAKE tablet TAKE tablet dic 1 TABLET BY 1 TABLET BY TAKE 1 Sports MOUTH AT MOUTH AT TABLET BY Me dicin BEDTIME BEDTIME MOUTH AT e BEDTIME azithromyci azithromyci No azithromyc Lisa n 250 mg n 250 mg in 250 mg Or [facility] tablet TAKE tablet TAKE tablet dic 2 TABLETS 2 TABLETS TAKE 2 Spo rts BY MOUTH ON BY MOUTH ON TABLETS BY Medicin DAY 1, AND DAY 1, AND MOUTH ON e THEN TAKE 1 THEN TAKE 1 DAY 1, AND TABLET BY TABLET BY THEN TAKE MOUTH ONCE MOUTH ONCE 1 TABLET A DAY ON A DAY ON BY MOUTH DAY 2 DAY 2 ONCE A DAY THROUGH DAY THROUGH DAY ON DAY 2 5 5 THROUGH DAY 5 benzonatate benzonatate No benzonatat Lisa 200 mg 200 mg e 200 mg [facility] capsule capsule capsule dic TAKE 1 TAKE 1 TAKE 1 Sports CAPSULE BY CAPSULE BY CAPSULE BY Medicin MOUTH THREE MOUTH THREE MOUTH e TIMES DAILY TIMES DAILY THREE NEEDED NEEDED TIMES FOR COUGH FOR COUGH DAILY NEEDED FOR COUGH clindamycin clindamycin No clindamyci Lisa HCl 300 mg HCl 300 mg n HCl 300 [facility] capsule capsule mg capsule dic TAKE 1 TAKE 1 TAKE 1 Sports CAPSULE BY CAPSULE BY CAPSULE BY Medicin MOUTH THREE MOUTH THREE MOUTH e TIMES DAILY TIMES DAILY THREE TIMES DAILY dexamethaso dexamethaso No dexamethas Lisa ne 4 mg ne 4 mg one 4 mg [facility] pe tablet TAKE tablet TAKE tablet dic 1 TABLET BY 1 TABLET BY TAKE 1 Sports MOUTH ONCE MOUTH ONCE TABLET BY Medicin DAILY DAILY MOUTH ONCE e DAILY diclofenac diclofenac No diclofenac Lisa 1 % topical 1 % topical 1 % [facility] gel APPLY gel APPLY topical di c TOPICALLY TOPICALLY gel APPLY Sports TWICE DAILY TWICE DAILY TOPICALLY Medicin TWICE e DAILY ergocalcife ergocalcife No ergocalcif Lisa rol rol carlitos [facility] (vitamin (vitamin (vitamin dic D2) 1,250 D2) 1,250 D2) 1,250 Sports mcg (50,000 mcg (50,000 mcg M edicin unit) unit) (50,000 e capsule capsule unit) TAKE 1 TAKE 1 capsule CAPSULE BY CAPSULE BY TAKE 1 MOUTH ONCE MOUTH ONCE CAPSULE BY A WEEK A WEEK MOUTH ONCE A WEEK etodolac etodolac No etodolac Aza sommer 300 mg 300 mg 300 mg [facility] capsule capsule capsule dic TAKE 1 TAKE 1 TAKE 1 Sports CAPSULE BY CAPSULE BY CAPSULE BY Medicin MOUTH TWICE MOUTH TWICE MOUTH e DAILY WITH DAILY WITH TWICE MEALS MEALS DAILY WITH MEALS gabapentin gabapentin No gabapentin Lisa 300 mg 300 mg 300 mg [facility] capsule capsule capsule dic TAKE 1 TAKE 1 TAKE 1 Sports CAPSULE BY CAPSULE BY CAPSULE BY Medicin MOUTH THREE MOUTH THREE MOUTH e TIMES DAILY TIMES DAILY THREE FOR 30 DAYS FOR 30 DAYS TIMES DAILY FOR 30 DAYS hydrochloro hydrochloro No hydrochlor Lisa thiazide 25 thiazide 25 othiazide [facility] mg tablet mg tablet 25 mg dic TAKE 1 TAKE 1 tablet Sports TABLET BY TABLET BY TAKE 1 Med icin MOUTH ONCE MOUTH ONCE TABLET BY e DAILY DAILY MOUTH ONCE DAILY InnoSpire InnoSpire No InnoSpire Lisa [facility] e device USE device USE device USE dic DIRECTED DIRECTED S ports DIRECTED Medicin e lisinopril lisinopril No lisinopril Lisa 40 mg 40 mg 40 mg [facility] tablet RX tablet RX tablet RX dic by other MD by other MD by other Sports MD Medicin e methocarbam methocarbam No methocarba Lisa ol 750 mg ol 750 mg mol 750 mg [facility] tablet tablet tablet dic Sports Medicin e methylpredn methylpredn No methylpred Lisa isolone 4 isolone 4 nisolone 4 [facility] mg tablets mg tablets mg tablets dic in a dose in a dose in a dose Sports pack TAKE pack TAKE pack TAKE [facility] BY MOUTH BY MOUTH BY MOUTH e DIRECTED ON DIRECTED ON INSIDE OF INSIDE OF DIRECTED PACKAGE PACKAGE ON INSIDE OF PACKAGE metoprolol metoprolol No metoprolol Lisa succinate succinate succinate [facility] ER 25 mg ER 25 mg ER 25 mg dic tablet,exte tablet,exte tablet,ext Sports nded nded ended Medicin release 24 release 24 release 24 e hr TAKE 1 hr TAKE 1 hr TAKE 1 TABLET BY TABLET BY TABLET BY MOUTH EVERY MOUTH EVERY MOUTH DAY DAY EVERY DAY montelukast montelukast No montelukas Lisa 10 mg 10 mg t 10 mg [facility] tablet TAKE tablet TAKE tablet dic 1 TABLET BY 1 TABLET BY TAKE 1 Sports MOUTH ONCE MOUTH ONCE TABLET BY Medicin DAILY DAILY MOUTH ONCE e DAILY mupirocin 2 mupirocin 2 No mupirocin Lisa % topical % topical 2 % [facility] pe ointment ointment topical dic APPLY TO APPLY TO ointment Spo rts RIGHT KNEE RIGHT KNEE APPLY TO Medicin PRE-OPERATI PRE-OPERATI RIGHT KNEE e ON ONCE ON ONCE PRE-OPERAT DAILY DAILY ION ONCE DAILY ondansetron ondansetron No ondansetro Lisa HCl 4 mg HCl 4 mg n HCl 4 mg [facility] tablet TAKE tablet TAKE tablet dic 1 TABLET BY 1 TABLET BY TAKE 1 Sports MOUTH EVERY MOUTH EVERY TABLET BY Medicin 8 HOURS 8 HOURS MOUTH e EVERY 8 HOURS oxycodone-a oxycodone-a No oxycodone- Lisa cetaminophe cetaminophe acetaminop [facility] n 10 mg-325 n 10 mg-325 hen 10 dic mg tablet mg tablet mg-325 mg Sports tablet Medicin e pantoprazol pantoprazol No pantoprazo Lisa e 40 mg e 40 mg le 40 mg [facility] pe tablet,mario tablet,mario tablet,del dic yed release yed release ayed S ports TAKE 1 TAKE 1 release [facility] TABLET BY TABLET BY TAKE 1 e MOUTH EVERY MOUTH EVERY TABLET BY DAY DAY MOUTH EVERY DAY prednisone prednisone No prednisone Lisa 20 mg 20 mg 20 mg [facility] tablet TAKE tablet TAKE tablet dic 2 TABLET BY 2 TABLET BY TAKE 2 Sports MOUTH ONCE MOUTH ONCE TABLET BY Medicin DAILY FOR 3 DAILY FOR 3 MOUTH ONCE e DAYS, THEN DAYS, THEN DAILY FOR TAKE 1 TAKE 1 3 DAYS, TABLET ONCE TABLET ONCE THEN TAKE DAILY FOR 2 DAILY FOR 2 1 TABLET DAYS DAYS ONCE DAILY FOR 2 DAYS promethazin promethazin No promethazi Lisa e-DM 6.25 e-DM 6.25 ne-DM 6.25 [facility] mg-15 mg/5 mg-15 mg/5 mg-15 mg/5 dic mL oral mL oral mL oral [facility] syrup TAKE syrup TAKE syrup TAKE Medicin 10 ML BY 10 ML BY 10 ML BY e MOUTH EVERY MOUTH EVERY MOUTH 6 TO 8 6 TO 8 EVERY 6 TO HOURS HOURS 8 HOURS NEEDED FOR NEEDED FOR NEEDED FOR COUGH COUGH COUGH sildenafil sildenafil No sildenafil Lisa 100 mg 100 mg 100 mg [facility] tablet TAKE tablet TAKE tablet dic 1 TABLET BY 1 TABLET BY TAKE 1 Sports MOUTH ONCE MOUTH ONCE TABLET BY Medicin DAILY 30 DAILY 30 MOUTH ONCE e MINUTES MINUTES DAILY 30 PRIOR TO PRIOR TO MINUTES SEXUAL SEXUAL PRIOR TO ACTIVITY ACTIVITY SEXUAL ACTIVITY Sudogest 30 Sudogest 30 No Sudogest Lisa mg tablet mg tablet 30 mg [facility] TAKE 1 TAKE 1 tablet dic TABLET BY TABLET BY TAKE 1 Spo rts MOUTH EVERY MOUTH EVERY TABLET BY Medicin 4 TO 6 4 TO 6 MOUTH e HOURS HOURS EVERY 4 TO NEEDED FOR NEEDED FOR 6 HOURS CONGESTION CONGESTION NEEDED FOR CONGESTION sulfamethox sulfamethox No sulfametho Lisa azole 800 azole 800 xazole 800 [facility] mg-trimetho mg-trimetho mg-trimeth dic prim 160 mg prim 160 mg oprim 160 [facility] tablet TAKE tablet TAKE mg tablet Medic[facility] 1 TABLET BY 1 TABLET BY TAKE 1 e MOUTH TWICE MOUTH TWICE TABLET BY DAILY DAILY MOUTH TWICE DAILY tamsulosin tamsulosin No tamsulosin Lisa 0.4 mg 0.4 mg 0.4 mg [facility] capsule capsule capsule dic TAKE 1 TAKE 1 TAKE 1 Sports CAPSULE BY CAPSULE BY CAPSULE BY Medicin MOUTH ONCE MOUTH ONCE MOUTH ONCE e DAILY DAILY DAILY tramadol 50 tramadol 50 No tramadol Lisa mg tablet mg tablet 50 mg [facility] TAKE 1 TAKE 1 tablet dic TABLET BY TABLET BY TAKE 1 Spo rts MOUTH TWICE MOUTH TWICE TABLET BY Medicin A DAY A DAY MOUTH e NEEDED FOR NEEDED FOR TWICE A 30 DAYS 30 DAYS DAY NEEDED FOR 30 DAYS vardenafil vardenafil No vardenafil Lisa 20 mg 20 mg 20 mg [facility] tablet TAKE tablet TAKE tablet dic ONE TABLET ONE TABLET TAKE ONE Sports BY MOUTH BY MOUTH TABLET BY Medicin DIRECTED DIRECTED MOUTH e NEEDED; NEEDED; DIRECTED START: START: NEEDED; ONE-HALF ONE-HALF START: TABLET TABLET ONE-HALF DOSE; MAX DOSE; MAX TABLET OF OF DOSE; MAX 20MG/DOSE 20MG/DOSE OF PER 24 PER 24 20MG/DOSE HOURS: TAKE HOURS: TAKE PER 24 ONE HOUR ONE HOUR HOURS: BEFORE BEFORE TAKE ONE SEXUAL SEXUAL HOUR ACTIVITY ACTIVITY BEFORE SEXUAL ACTIVITY venlafaxine venlafaxine No venlafaxin Lisa ER 75 mg ER 75 mg e ER 75 mg [facility] capsule,ext capsule,ext capsule,ex dic ended ended tended Sports release 24 release 24 release 24 Medicin hr RX by hr RX by hr RX by e other other other Ventolin Ventolin No Ventolin Aza sommer HFA 90 HFA 90 HFA 90 [facility] mcg/actuati mcg/actuati mcg/actuat dic on aerosol on aerosol ion Spo rts inhaler inhaler aerosol Medici n INHALE 1 TO INHALE 1 TO inhaler e 2 PUFFS BY 2 PUFFS BY INHALE 1 MOUTH EVERY MOUTH EVERY TO 2 PUFFS 4 TO 6 4 TO 6 BY MOUTH HOURS HOURS EVERY 4 TO NEEDED FOR NEEDED FOR 6 HOURS SHORTNESS SHORTNESS NEEDED FOR OF BREATH, OF BREATH, SHORTNESS COUGH, COUGH, OF BREATH, WHEEZING WHEEZING COUGH, WHEEZING acetaminoph acetaminoph No acetaminop Lisa en 300 en 300 hen 300 [facility] mg-codeine mg-codeine mg-codeine dic 30 mg 30 mg 30 mg Sports tablet tablet tablet Medicin e acetaminoph acetaminoph No acetaminop Lisa en 300 en 300 hen 300 [facility] mg-codeine mg-codeine mg-codeine dic 30 mg 30 mg 30 mg Sports tablet TAKE tablet TAKE tablet Medicin 1 TABLET BY 1 TABLET BY TAKE 1 e MOUTH EVERY MOUTH EVERY TABLET BY 12 HOURS 12 HOURS MOUTH EVERY 12 HOURS acetaminoph acetaminoph No acetaminop Lisa en 300 en 300 hen 300 [facility] mg-codeine mg-codeine mg-codeine dic 60 mg 60 mg 60 mg Sports tablet TAKE tablet TAKE tablet Medicin 1 TABLET BY 1 TABLET BY TAKE 1 e MOUTH EVERY MOUTH EVERY TABLET BY 6 HOURS 6 HOURS MOUTH NEEDED FOR NEEDED FOR EVERY 6 15 DAYS 15 DAYS HOURS NEEDED FOR 15 DAYS albuterol albuterol No albuterol Lisa sulfate 2.5 sulfate 2.5 sulfate [facility] mg/3 mL mg/3 mL 2.5 mg/3 dic (0.083 %) (0.083 %) mL (0.083 Sports solution solution %) Medicin for for solution e nebulizatio nebulizatio for n USE 1 n USE 1 nebulizati VIAL IN VIAL IN on USE 1 NEBULIZER NEBULIZER VIAL IN EVERY 6 EVERY 6 NEBULIZER HOURS HOURS EVERY 6 NEEDED FOR NEEDED FOR HOURS SHORTNESS SHORTNESS NEEDED FOR OF BREATH OF BREATH SHORTNESS AND FOR AND FOR OF BREATH COUGH COUGH AND FOR COUGH amitriptyli amitriptyli No amitriptyl Lisa ne 150 mg ne 150 mg ine 150 mg [facility] tablet tablet tablet dic Sports Medicin e amlodipine amlodipine No amlodipine Lisa 5 mg tablet 5 mg tablet 5 mg [facility] tablet dic Sports Medicin e amoxicillin amoxicillin No amoxicilli Lisa 500 mg 500 mg n 500 mg [facility] capsule capsule capsule dic TAKE 1 TAKE 1 TAKE 1 Sports CAPSULE BY CAPSULE BY CAPSULE BY Medicin MOUTH THREE MOUTH THREE MOUTH e TIMES DAILY TIMES DAILY THREE TIMES DAILY amoxicillin amoxicillin No amoxicilli Lisa 875 mg 875 mg n 875 mg [facility] tablet TAKE tablet TAKE tablet dic 1 TABLET BY 1 TABLET BY TAKE 1 Sports MOUTH TWICE MOUTH TWICE TABLET BY Medicin DAILY DAILY MOUTH e TWICE DAILY atorvastati atorvastati No atorvastat Lisa n 40 mg n 40 mg in 40 mg Orth[facility] pe tablet TAKE tablet TAKE tablet dic 1 TABLET BY 1 TABLET BY TAKE 1 Sports MOUTH AT MOUTH AT TABLET BY Me dicin BEDTIME BEDTIME MOUTH AT e BEDTIME azithromyci azithromyci No azithromyc Lisa n 250 mg n 250 mg in 250 mg Or [facility]ope tablet TAKE tablet TAKE tablet dic 2 TABLETS 2 TABLETS TAKE 2 Spo rts BY MOUTH ON BY MOUTH ON TABLETS BY Medicin DAY 1, AND DAY 1, AND MOUTH ON e THEN TAKE 1 THEN TAKE 1 DAY 1, AND TABLET BY TABLET BY THEN TAKE MOUTH ONCE MOUTH ONCE 1 TABLET A DAY ON A DAY ON BY MOUTH DAY 2 DAY 2 ONCE A DAY THROUGH DAY THROUGH DAY ON DAY 2 5 5 THROUGH DAY 5 amitriptyli amitriptyli No amitriptyl Lisa ne 150 mg ne 150 mg ine 150 mg [facility] tablet tablet tablet dic Sports Medicin e benzonatate benzonatate No benzonatat Lisa 200 mg 200 mg e 200 mg [facility] capsule capsule capsule dic TAKE 1 TAKE 1 TAKE 1 Sports CAPSULE BY CAPSULE BY CAPSULE BY Medicin MOUTH THREE MOUTH THREE MOUTH e TIMES DAILY TIMES DAILY THREE NEEDED NEEDED TIMES FOR COUGH FOR COUGH DAILY NEEDED FOR COUGH clindamycin clindamycin No clindamyci Lisa HCl 300 mg HCl 300 mg n HCl 300 [facility] capsule capsule mg capsule dic TAKE 1 TAKE 1 TAKE 1 Sports CAPSULE BY CAPSULE BY CAPSULE BY Medicin MOUTH THREE MOUTH THREE MOUTH e TIMES DAILY TIMES DAILY THREE TIMES DAILY dexamethaso dexamethaso No dexamethas Lisa ne 4 mg ne 4 mg one 4 mg Orth[facility] pe tablet TAKE tablet TAKE tablet dic 1 TABLET BY 1 TABLET BY TAKE 1 Sports MOUTH ONCE MOUTH ONCE TABLET BY Medicin DAILY DAILY MOUTH ONCE e DAILY diclofenac diclofenac No diclofenac Lisa 1 % topical 1 % topical 1 % [facility] gel APPLY gel APPLY topical di c TOPICALLY TOPICALLY gel APPLY Sports TWICE DAILY TWICE DAILY TOPICALLY Medicin TWICE e DAILY ergocalcife ergocalcife No ergocalcif Lisa rol rol carlitos [facility] (vitamin (vitamin (vitamin dic D2) 1,250 D2) 1,250 D2) 1,250 Sports mcg (50,000 mcg (50,000 mcg M edicin unit) unit) (50,000 e capsule capsule unit) TAKE 1 TAKE 1 capsule CAPSULE BY CAPSULE BY TAKE 1 MOUTH ONCE MOUTH ONCE CAPSULE BY A WEEK A WEEK MOUTH ONCE A WEEK etodolac etodolac No 1capsul BID etodolac Lisa 300 mg 300 mg e(s) 300 mg [facility] capsule capsule capsule dic Take 1 Take 1 Take 1 Sports capsule capsule capsule Medici n twice a day twice a day twice a e by oral by oral day by route with route with oral route meals for meals for with meals 30 days. 30 days. for 30 days. gabapentin gabapentin No gabapentin Lisa 300 mg 300 mg 300 mg [facility] capsule capsule capsule dic TAKE 1 TAKE 1 TAKE 1 Sports CAPSULE BY CAPSULE BY CAPSULE BY Medicin MOUTH THREE MOUTH THREE MOUTH e TIMES DAILY TIMES DAILY THREE FOR 30 DAYS FOR 30 DAYS TIMES DAILY FOR 30 DAYS hydrochloro hydrochloro No hydrochlor Lisa thiazide 25 thiazide 25 othiazide [facility] mg tablet mg tablet 25 mg dic TAKE 1 TAKE 1 tablet Sports TABLET BY TABLET BY TAKE 1 Med icin MOUTH ONCE MOUTH ONCE TABLET BY e DAILY DAILY MOUTH ONCE DAILY InnoSpire InnoSpire No InnoSpire Lisa [employer] e device USE device USE device USE dic DIRECTED DIRECTED S ports DIRECTED Medicin e amlodipine amlodipine No amlodipine Lisa 5 mg tablet 5 mg tablet 5 mg [facility] tablet dic Sports Medicin e lisinopril lisinopril No lisinopril Lisa 40 mg 40 mg 40 mg [facility] tablet RX tablet RX tablet RX dic by other MD by other MD by other Sports MD Medicin e Medrol Medrol No 1 Medrol Lisa (Robin) 4 mg (Robin) 4 mg (Robin) 4 mg [facility] tablets in tablets in tablets in dic a dose pack a dose pack a dose Sports Take 1 Take 1 pack Take Medici n tablet by tablet by 1 tablet e oral route oral route by oral as as route as directed. directed. directed. methocarbam methocarbam No methocarba Lisa ol 750 mg ol 750 mg mol 750 mg [facility] tablet tablet tablet dic Sports Medicin e metoprolol metoprolol No metoprolol Lisa succinate succinate succinate [facility] ER 25 mg ER 25 mg ER 25 mg dic tablet,exte tablet,exte tablet,ext Sports nded nded ended Medicin release 24 release 24 release 24 e hr TAKE 1 hr TAKE 1 hr TAKE 1 TABLET BY TABLET BY TABLET BY MOUTH EVERY MOUTH EVERY MOUTH DAY DAY EVERY DAY montelukast montelukast No montelukas Lisa 10 mg 10 mg t 10 mg [facility] tablet TAKE tablet TAKE tablet dic 1 TABLET BY 1 TABLET BY TAKE 1 Sports MOUTH ONCE MOUTH ONCE TABLET BY Medicin DAILY DAILY MOUTH ONCE e DAILY mupirocin 2 mupirocin 2 No mupirocin Lisa % topical % topical 2 % Ortho pe ointment ointment topical dic APPLY TO APPLY TO ointment Spo rts RIGHT KNEE RIGHT KNEE APPLY TO Medicin PRE-OPERATI PRE-OPERATI RIGHT KNEE e ON ONCE ON ONCE PRE-OPERAT DAILY DAILY ION ONCE DAILY ondansetron ondansetron No ondansetro Lisa HCl 4 mg HCl 4 mg n HCl 4 mg [facility] tablet TAKE tablet TAKE tablet dic 1 TABLET BY 1 TABLET BY TAKE 1 Sports MOUTH EVERY MOUTH EVERY TABLET BY Medicin 8 HOURS 8 HOURS MOUTH e EVERY 8 HOURS amoxicillin amoxicillin No amoxicilli Lisa 875 mg 875 mg n 875 mg [facility] tablet TAKE tablet TAKE tablet dic 1 TABLET BY 1 TABLET BY TAKE 1 Sports MOUTH TWICE MOUTH TWICE TABLET BY Medicin DAILY DAILY MOUTH e TWICE DAILY oxycodone-a oxycodone-a No oxycodone- Lisa cetaminophe cetaminophe acetaminop [facility] n 10 mg-325 n 10 mg-325 hen 10 dic mg tablet mg tablet mg-325 mg Sports tablet Medicin e pantoprazol pantoprazol No pantoprazo Lisa e 40 mg e 40 mg le 40 mg Orth[facility] pe tablet,mario tablet,mario tablet,del dic yed release yed release ayed S ports TAKE 1 TAKE 1 release Medicin TABLET BY TABLET BY TAKE 1 e MOUTH EVERY MOUTH EVERY TABLET BY DAY DAY MOUTH EVERY DAY prednisone prednisone No prednisone Lisa 20 mg 20 mg 20 mg [facility] tablet TAKE tablet TAKE tablet dic 2 TABLET BY 2 TABLET BY TAKE 2 Sports MOUTH ONCE MOUTH ONCE TABLET BY Medicin DAILY FOR 3 DAILY FOR 3 MOUTH ONCE e DAYS, THEN DAYS, THEN DAILY FOR TAKE 1 TAKE 1 3 DAYS, TABLET ONCE TABLET ONCE THEN TAKE DAILY FOR 2 DAILY FOR 2 1 TABLET DAYS DAYS ONCE DAILY FOR 2 DAYS promethazin promethazin No promethazi Lisa e-DM 6.25 e-DM 6.25 ne-DM 6.25 [facility] mg-15 mg/5 mg-15 mg/5 mg-15 mg/5 dic mL oral mL oral mL oral Sports syrup TAKE syrup TAKE syrup TAKE Medicin 10 ML BY 10 ML BY 10 ML BY e MOUTH EVERY MOUTH EVERY MOUTH 6 TO 8 6 TO 8 EVERY 6 TO HOURS HOURS 8 HOURS NEEDED FOR NEEDED FOR NEEDED FOR COUGH COUGH COUGH sildenafil sildenafil No sildenafil Lisa 100 mg 100 mg 100 mg [facility] tablet TAKE tablet TAKE tablet dic ONE TABLET ONE TABLET TAKE ONE Sports BY MOUTH BY MOUTH TABLET BY Medicin DIRECTED 30 DIRECTED 30 MOUTH e MINUTES TO MINUTES TO DIRECTED 4 HOURS 4 HOURS 30 MINUTES BEFORE BEFORE TO 4 HOURS SEXUAL SEXUAL BEFORE ACTIVITY ACTIVITY SEXUAL ACTIVITY Sudogest 30 Sudogest 30 No Sudogest Lisa mg tablet mg tablet 30 mg Orth ope TAKE 1 TAKE 1 tablet dic TABLET BY TABLET BY TAKE 1 Spo rts MOUTH EVERY MOUTH EVERY TABLET BY Medicin 4 TO 6 4 TO 6 MOUTH e HOURS HOURS EVERY 4 TO NEEDED FOR NEEDED FOR 6 HOURS CONGESTION CONGESTION NEEDED FOR CONGESTION sulfamethox sulfamethox No sulfametho Lisa azole 800 azole 800 xazole 800 [facility] mg-trimetho mg-trimetho mg-trimeth dic prim 160 mg prim 160 mg oprim 160 Sports tablet TAKE tablet TAKE mg tablet Medicin 1 TABLET BY 1 TABLET BY TAKE 1 e MOUTH TWICE MOUTH TWICE TABLET BY DAILY DAILY MOUTH TWICE DAILY tamsulosin tamsulosin No tamsulosin Lisa 0.4 mg 0.4 mg 0.4 mg [facility] capsule capsule capsule dic TAKE 1 TAKE 1 TAKE 1 Sports CAPSULE BY CAPSULE BY CAPSULE BY Medicin MOUTH ONCE MOUTH ONCE MOUTH ONCE e DAILY DAILY DAILY tramadol 50 tramadol 50 No tramadol Lisa mg tablet mg tablet 50 mg Orth ope TAKE 1 TAKE 1 tablet dic TABLET BY TABLET BY TAKE 1 Spo rts MOUTH TWICE MOUTH TWICE TABLET BY Medicin A DAY A DAY MOUTH e NEEDED FOR NEEDED FOR TWICE A 30 DAYS 30 DAYS DAY NEEDED FOR 30 DAYS atorvastati atorvastati No atorvastat Lisa n 40 mg n 40 mg in 40 mg [facility] pe tablet TAKE tablet TAKE tablet dic 1 TABLET BY 1 TABLET BY TAKE 1 Sports MOUTH AT MOUTH AT TABLET BY Me dicin BEDTIME BEDTIME MOUTH AT e BEDTIME vardenafil vardenafil No vardenafil Lias 20 mg 20 mg 20 mg [facility] tablet TAKE tablet TAKE tablet dic ONE TABLET ONE TABLET TAKE ONE Sports BY MOUTH BY MOUTH TABLET BY Medicin DIRECTED DIRECTED MOUTH e NEEDED; NEEDED; DIRECTED START: START: NEEDED; ONE-HALF ONE-HALF START: TABLET TABLET ONE-HALF DOSE; MAX DOSE; MAX TABLET OF OF DOSE; MAX 20MG/DOSE 20MG/DOSE OF PER 24 PER 24 20MG/DOSE HOURS: TAKE HOURS: TAKE PER 24 ONE HOUR ONE HOUR HOURS: BEFORE BEFORE TAKE ONE SEXUAL SEXUAL HOUR ACTIVITY ACTIVITY BEFORE SEXUAL ACTIVITY venlafaxine venlafaxine No venlafaxin Lisa ER 75 mg ER 75 mg e ER 75 mg [facility] capsule,ext capsule,ext capsule,ex dic ended ended tended Sports release 24 release 24 release 24 Medicin hr RX by hr RX by hr RX by e other MD other other MD Heath Chaparroolin No Ventolin Aza sommer HFA 90 HFA 90 HFA 90 [facility] mcg/actuati mcg/actuati mcg/actuat dic on aerosol on aerosol ion Spo rts inhaler inhaler aerosol Medici n INHALE 1 TO INHALE 1 TO inhaler e 2 PUFFS BY 2 PUFFS BY INHALE 1 MOUTH EVERY MOUTH EVERY TO 2 PUFFS 4 TO 6 4 TO 6 BY MOUTH HOURS HOURS EVERY 4 TO NEEDED FOR NEEDED FOR 6 HOURS SHORTNESS SHORTNESS NEEDED FOR OF BREATH, OF BREATH, SHORTNESS COUGH, COUGH, OF BREATH, WHEEZING WHEEZING COUGH, WHEEZING benzonatate benzonatate No benzonatat Lisa 200 mg 200 mg e 200 mg [facility] capsule capsule capsule dic TAKE 1 TAKE 1 TAKE 1 Sports CAPSULE BY CAPSULE BY CAPSULE BY Medicin MOUTH THREE MOUTH THREE MOUTH e TIMES DAILY TIMES DAILY THREE NEEDED NEEDED TIMES FOR COUGH FOR COUGH DAILY NEEDED FOR COUGH celecoxib celecoxib No celecoxib Lisa 200 mg 200 mg 200 mg [facility] capsule capsule capsule dic TAKE 1 TAKE 1 TAKE 1 Sports CAPSULE BY CAPSULE BY CAPSULE BY Medicin MOUTH TWICE MOUTH TWICE MOUTH e A DAY A DAY TWICE A BEFORE BEFORE DAY BEFORE SURGERY, SURGERY, SURGERY, THEN TAKE 1 THEN TAKE 1 THEN TAKE CAPSULE THE CAPSULE THE 1 CAPSULE MORNING OF MORNING OF THE SURGERY SURGERY MORNING OF SURGERY dexamethaso dexamethaso No dexamethas Lisa ne 4 mg ne 4 mg one 4 mg [facility] pe tablet TAKE tablet TAKE tablet dic 1 TABLET BY 1 TABLET BY TAKE 1 Sports MOUTH ONCE MOUTH ONCE TABLET BY Medicin DAILY DAILY MOUTH ONCE e DAILY diclofenac diclofenac No diclofenac Lisa 1 % topical 1 % topical 1 % [facility] gel APPLY gel APPLY topical di c TOPICALLY TOPICALLY gel APPLY Sports TWICE DAILY TWICE DAILY TOPICALLY Medicin TWICE e DAILY gabapentin gabapentin No gabapentin Lisa 300 mg 300 mg 300 mg [facility] capsule capsule capsule dic TAKE 1 TAKE 1 TAKE 1 Sports CAPSULE BY CAPSULE BY CAPSULE BY Medicin MOUTH EVERY MOUTH EVERY MOUTH e DAY AT DAY AT EVERY DAY BEDTIME FOR BEDTIME FOR AT BEDTIME 90 DAYS 90 DAYS FOR 90 DAYS hydrochloro hydrochloro No hydrochlor Lisa thiazide 25 thiazide 25 othiazide [facility] mg tablet mg tablet 25 mg dic TAKE 1 TAKE 1 tablet Sports TABLET BY TABLET BY TAKE 1 Med icin MOUTH ONCE MOUTH ONCE TABLET BY e DAILY DAILY MOUTH ONCE DAILY lisinopril lisinopril No lisinopril Lisa 40 mg 40 mg 40 mg [facility] tablet RX tablet RX tablet RX dic by other MD by other MD by other Sports MD Medicin e methocarbam methocarbam No methocarba Lisa ol 750 mg ol 750 mg mol 750 mg [facility] tablet tablet tablet dic Sports Medicin e methylpredn methylpredn No methylpred Lisa isolone 4 isolone 4 nisolone 4 [facility] mg tablets mg tablets mg tablets dic in a dose in a dose in a dose Sports pack TAKE pack TAKE pack TAKE Medicin DIRECTED DIRECTED e DIRECTED metoprolol metoprolol No metoprolol Lisa succinate succinate succinate [facility] ER 25 mg ER 25 mg ER 25 mg dic tablet,exte tablet,exte tablet,ext Sports nded nded ended Medicin release 24 release 24 release 24 e hr TAKE 1 hr TAKE 1 hr TAKE 1 TABLET BY TABLET BY TABLET BY MOUTH EVERY MOUTH EVERY MOUTH DAY DAY EVERY DAY montelukast montelukast No montelukas Lisa 10 mg 10 mg t 10 mg [facility] tablet TAKE tablet TAKE tablet dic 1 TABLET BY 1 TABLET BY TAKE 1 Sports MOUTH ONCE MOUTH ONCE TABLET BY Medicin DAILY DAILY MOUTH ONCE e DAILY mupirocin 2 mupirocin 2 No mupirocin Lisa % topical % topical 2 % Orth[facility] pe ointment ointment topical dic APPLY TO APPLY TO ointment Spo rts RIGHT KNEE RIGHT KNEE APPLY TO Medicin PRE-OPERATI PRE-OPERATI RIGHT KNEE e ON ONCE ON ONCE PRE-OPERAT DAILY DAILY ION ONCE DAILY ondansetron ondansetron No ondansetro Lisa HCl 4 mg HCl 4 mg n HCl 4 mg [facility] tablet TAKE tablet TAKE tablet dic 1 TABLET BY 1 TABLET BY TAKE 1 Sports MOUTH EVERY MOUTH EVERY TABLET BY Medicin 8 HOURS 8 HOURS MOUTH e EVERY 8 HOURS oxycodone-a oxycodone-a No oxycodone- Lisa cetaminophe cetaminophe acetaminop [facility] n 10 mg-325 n 10 mg-325 hen 10 dic mg tablet mg tablet mg-325 mg Sports tablet Medicin e pantoprazol pantoprazol No pantoprazo Lisa e 40 mg e 40 mg le 40 mg [facility] pe tablet,mario tablet,mario tablet,del dic yed release yed release ayed S ports TAKE 1 TAKE 1 release Medicin TABLET BY TABLET BY TAKE 1 e MOUTH EVERY MOUTH EVERY TABLET BY DAY DAY MOUTH EVERY DAY prednisone prednisone No prednisone Lisa 20 mg 20 mg 20 mg [facility] tablet TAKE tablet TAKE tablet dic 1 TABLET BY 1 TABLET BY TAKE 1 Sports MOUTH ONCE MOUTH ONCE TABLET BY Medicin DAILY DAILY MOUTH ONCE e DAILY sildenafil sildenafil No sildenafil Lisa 100 mg 100 mg 100 mg [facility] tablet TAKE tablet TAKE tablet dic 1 TABLET BY 1 TABLET BY TAKE 1 Sports MOUTH ONCE MOUTH ONCE TABLET BY Medicin DAILY 30 DAILY 30 MOUTH ONCE e MINUTES MINUTES DAILY 30 PRIOR TO PRIOR TO MINUTES SEXUAL SEXUAL PRIOR TO ACTIVITY ACTIVITY SEXUAL ACTIVITY Sudogest 30 Sudogest 30 No Sudogest Lisa mg tablet mg tablet 30 mg Orth ope TAKE 1 TAKE 1 tablet dic TABLET BY TABLET BY TAKE 1 Spo rts MOUTH EVERY MOUTH EVERY TABLET BY Medicin 4 TO 6 4 TO 6 MOUTH e HOURS HOURS EVERY 4 TO NEEDED FOR NEEDED FOR 6 HOURS CONGESTION CONGESTION NEEDED FOR CONGESTION tamsulosin tamsulosin No tamsulosin Lisa 0.4 mg 0.4 mg 0.4 mg [facility] capsule capsule capsule dic TAKE 1 TAKE 1 TAKE 1 Sports CAPSULE BY CAPSULE BY CAPSULE BY Medicin MOUTH ONCE MOUTH ONCE MOUTH ONCE e DAILY DAILY DAILY tramadol 50 tramadol 50 No tramadol Lisa mg tablet mg tablet 50 mg Orth ope TAKE 1 TAKE 1 tablet dic TABLET BY TABLET BY TAKE 1 Spo rts MOUTH TWICE MOUTH TWICE TABLET BY Medicin A DAY A DAY MOUTH e NEEDED FOR NEEDED FOR TWICE A 30 DAYS 30 DAYS DAY NEEDED FOR 30 DAYS venlafaxine venlafaxine No venlafaxin Lisa ER 75 mg ER 75 mg e ER 75 mg [facility] capsule,ext capsule,ext capsule,ex dic ended ended tended Sports release 24 release 24 release 24 Medicin hr RX by hr RX by hr RX by e other other other acetaminoph acetaminoph No acetaminop Lisa en 300 en 300 hen 300 [facility] mg-codeine mg-codeine mg-codeine dic 30 mg 30 mg 30 mg Sports tablet TAKE tablet TAKE tablet Medicin 1 TABLET BY 1 TABLET BY TAKE 1 e MOUTH EVERY MOUTH EVERY TABLET BY 12 HOURS 12 HOURS MOUTH FOR 30 DAYS FOR 30 DAYS EVERY 12 HOURS FOR 30 DAYS Vital Signs Vital Name Observation Time Observation Value Comments Source Height 2022-06-12 00:00:00 71 [in_i] [facility] BMI (Body Mass 2022-06-12 00:00:00 25.5 kg/m2 [facility] Body Weight 2022-06-12 00:00:00 183 [lb_av] [facility] Height 2022-05-08 00:00:00 71 [in_i] [facility] BMI (Body Mass 2022-05-08 00:00:00 25.5 kg/m2 [facility] Body Weight 2022-05-08 00:00:00 183 [lb_av] [facility] Height 2022-04-05 00:00:00 71 [in_i] [facility] BMI (Body Mass 2022-04-05 00:00:00 25.5 kg/m2 [facility] Body Weight 2022-04-05 00:00:00 183 [lb_av] [facility] BP Diastolic 2021-12-15 00:00:00 100 mm[Hg] [facility] Height 2021-12-15 00:00:00 71 [in_i] [facility] BMI (Body Mass 2021-12-15 00:00:00 25.5 kg/m2 [facility] BP Systolic 2021-12-15 00:00:00 160 mm[Hg] [facility] Body Weight 2021-12-15 00:00:00 183 [lb_av] [facility] Height 2021-11-15 00:00:00 71 [in_i] [facility] BMI (Body Mass 2021-11-15 00:00:00 24.4 kg/m2 [facility] Body Weight 2021-11-15 00:00:00 175 [lb_av] [facility] Procedures Procedure Date / Time Performing Clinician Source Performed RADEX SPI CRV MINIMUM 4 2021-12-15 00:00:00 Regla kumar [facility] VIE[facility] Medicine electromyogram + nerve 2021-11-15 00:00:00 Siobhan patel Orthopedic conduction study Sports Medicine SPECT, cervical spine 2021-11-15 00:00:00 [facility] Colonoscopy 2020-11-26 00:00:00 [facility] Knee Replacement 2012-02-27 00:00:00 [facility] Back Surgery [facility] Eye Surgery [facility] Hand Surgery [facility] Neck Surgery [facility] Shoulder Surgery [facility] Plan of Care Planned Activity Planned Date Details Comments Source Instructions [facility] Encounters Start End Encounter Admission Attending Care Care Encounter Source Date/Time Date/Time Type Type Clinicians Facility Department ID 2022-08-01 2022-08-01 Outpatient LES_Duarte AO AO [id number] Lisa 00:00:00 00:00:00 _Sam [id number] [facility] 2022-08-01 2022-08-01 Outpatient FOG_Bennett AOSM AOSM [id number] Lisa 00:00:00 00:00:00 _Sam [id number] [facility] 2022-08-01 2022-08-01 Outpatient FOG_Bennett AOSM AOSM [id number] Lisa 00:00:00 00:00:00 _Sam [id number] [facility] 2022-07-13 2022-07-13 Outpatient FOG_Bennett AOSM AOSM [id number] Lisa 00:00:00 00:00:00 _Sam [id number] [facility] 2022-07-12 2022-07-12 Outpatient FOG_Bennett AOSM AOSM [id number] Lisa 00:00:00 00:00:00 _Sam [id number] [facility] 2022-06-12 2022-06-12 Outpatient FOG_Bennett AOSM AOSM [id number] Lisa 00:00:00 00:00:00 _Sam [id number] [facility] 2022-06-12 2022-06-12 Mary [facility] [place] - [facility] [id number] Lisa 00:00:00 00:00:00 VARUN Chavis: [place] [facility] [id number] [facility] [place] [id number] , Ph. 2022-05-12 2022-05-12 Outpatient FOG_Bennett AOSM AOSM [id number] Lisa 00:00:00 00:00:00 _Sam [id number] [facility] 2022-05-08 2022-05-08 Mary [facility] [place] - [facility] [id number] Lisa 00:00:00 00:00:00 VARUN Chavis: [place] - [facility] [id number] [facility] [place] [id number] , Ph. [phone] 2022-05-02 2022-05-02 Outpatient FOG_Bennett AOSM AOSM [id number] Lisa 00:00:00 00:00:00 _Sam [id number] [facility] e 2022-05-02 2022-05-02 Outpatient FOG_Bennett AOSM AOSM [id number] Lisa 00:00:00 00:00:00 _Sam [id number] [facility] 2022-04-05 2022-04-05 Mary [facility] [place] - [facility] [id number] Lisa 00:00:00 00:00:00 VARUN Chavis: Ayleen Macario [id number] [facility] [place] [address] , Ph. [phone] 2022-01-11 2022-01-11 Outpatient FOG_Bennett AOSM AOSM [id number] Lisa 00:00:00 00:00:00 _Sam [id number] [facility] Medic[facility] e 2022-01-11 2022-01-11 Outpatient FOG_Bennett AOSM AOSM [id number] Lisa 00:00:00 00:00:00 _Sam [id number] [facility] Medic[facility] e 2021-12-15 2021-12-15 Outpatient FOG_Bennett AOSM AOSM [id number] Lisa 00:00:00 00:00:00 _Sam [id number] [facility] e 2021-12-15 2021-12-15 James Tong A[facility] [place] - Ortho [id number] Lisa 00:00:00 00:00:00 Ayleen Pollock MD: [id number] [facility] [place] [address] , Ph. [phone] 2021-12-14 2021-12-14 Outpatient FOG_Bennett AOSM AOSM [id number] Lisa 00:00:00 00:00:00 _Sam [id number] [facility] Medicin e 2021-12-082021-12-08 Outpatient FOG_Bennett AOSM AOSM [id number] Lisa 00:00:00 00:00:00 _Sam [id number] [facility] Sports Medicin e 2021-11-15 2021-11-15 Outpatient FOG_Bennett AOSM AOSM [id number] Lisa 00:00:00 00:00:00 _Sam [id number] [facility] dic [facility] Medicin e 2021-11-15 2021-11-15 Naseem Alejandro A[facility] [place] - Ortho [id number] Lisa 00:00:00 00:00:00 Ayleen Winchester MD: [id number] [facility] [place] [address] , Ph. [phone] 2021-10-18 2021-10-18 Outpatient FOG_Bennett AOSM AOSM [id number] Lisa 00:00:00 00:00:00 _Sam [id number] [facility] Medicin e Results This patient has no known results.
[2022-11-17 11:46] LABS: Protime INR 1.04
[2022-11-17 11:50] LABS: Absolute Lymphocytes (CBC) 1.2 K/uL (0.7-4.9); Hematocrit 44.1 % (39.6-49.0); Lymphocytes % 12.9 % (15.3-44.8); MCV 89.8 fL (80-100); Platelets 254 thou/uL (152-406)
[2022-11-17 11:55] LABS: Potassium 3.5 mEq/L (3.5-5.1)
--- NOTE | 2022-11-17 12:25 | RAD REPORT ---
EXAM DESCRIPTION: CT - CTFBWCON CLINICAL HISTORY: swelling;Facial pain COMPARISON: Head Brain Wo Cont dated 11/17/2022 TECHNIQUE: Axial 2 mm thick images of the face were obtained with sagittal and coronal reconstructio n images. All CT scans are performed using dose optimization technique as appropriate and may include automated exposure control or mA/KV adjustment according to patient size. FINDINGS: No acute facial bone fracture is seen.The mandible is intact. Periapical lucency associate d with the right mandibular third molar and right maxillary first molar. The globes and orbital contents are grossly unremarkable.There are a few opacified ethmoid air cells as well as trace right maxillary sinus thickening. Skin thickening and mild subcutaneous edema involving the soft tissues of the face bilaterally. No fl uid collections identified. This is symmetric. IMPRESSION: Symmetric nonspecific facial skin thickening and subcutaneous edema but no inciting abno rmality identified.
--- NOTE | 2022-11-17 12:26 | RAD REPORT ---
EXAM DESCRIPTION: CT - Head Brain Wo Cont - 11/17/2022 12:17 pm CLINICAL HISTORY: facial infection, swelling, headache COMPARISON: No comparisons TECHNIQUE: All CT scans are performed using dose optimization technique as appropriate and may inclu de automated exposure control or mA/KV adjustment according to patient size. FINDINGS: No intracranial hemorrhage, hydrocephalus or extra-axial fluid collection.No areas of brai n edema or evidence of midline shift. Mild ethmoid air cell and right maxillary sinus mucosal thickening. The calvarium is intact. IMPRESSION: No acute intracranial abnormality.
[2022-11-17] MEDS ORDERED: VANCOMYCIN 1 GM/VIAL ONE (12:27)
[2022-11-17] MEDS ORDERED: PIPERACIL/TAZO 3.375 GM VIAL IV ONE (12:28)
[2022-11-17] MEDS ORDERED: NA CHLORIDE 0.9% 250 ML ONE (12:28)
[2022-11-17] MEDS ORDERED: NA CHLORIDE 0.9% 100 ML ONE (12:28)
--- NOTE | 2022-11-17 12:28 | EDPHYS ---
Physician Documentation [facility] Name: Randell Alvarenga Age: 66 yrs Sex: Male : 1955 Arrival Date: 11/17/2022 Time: 10:41 Bed 8 Private MD: Ander Hickey ED Physician Marcelino Leo HPI: 11/17 11:11 This 66 yrs old Male presents to ER via Ambulatory with complaints of Facial Swelling. rn 11:11 The patient presents with cellulitis of the face, the patient presents with a swollen rn area of the face. Description: erythematous, swollen. Onset: The symptoms/episode began/occurred yesterday. Possible cause(s): unknown. Modifying factors: the symptoms are alleviated by nothing, the symptoms are aggravated by nothing. Severity of symptoms: At their worst the symptoms were moderate, in the emergency department the symptoms are unchanged. The patient has not experienced similar symptoms in the past. The patient has been recently seen by a physician:. Patient sent by Dr. Hickey for facial swelling. Patient reports began yesterday. No trauma. No fever. Does have mild chills and symptoms of sinus infection for 2 weeks. No new medication or prescriptions.. Historical: - Allergies: 11:06 No Known Allergies; hb - Home Meds: 11:06 Protonix Oral [Active]; hb - PMHx: 11:06 Hypertension; High Cholesterol; Acid Reflux; Degenerative Arthritis; hb - PSHx: 11:06 Spinal Cord Stimulator; Knees - Bilateral; Shoulder - Right; Laminectomy; Carpal Tunnel hb - Bilateral; - Immunization history:: Adult Immunizations up to date. - Family history:: not pertinent. - Social history:: Smoking status: Patient denies any tobacco usage or history of. Patient/guardian denies using alcohol. - Hospitalizations: : No recent hospitalization is reported. ROS: 11:11 Constitutional: Negative for fever, chills, and weight loss, Eyes: Negative for injury, rn pain, redness, and discharge, Neck: Negative for injury, pain, and swelling, Cardiovascular: Negative for chest pain, palpitations, and edema, Respiratory: Negative for shortness of breath, cough, wheezing, and pleuritic chest pain, Abdomen/GI: Negative for abdominal pain, nausea, vomiting, diarrhea, and constipation, Back: Negative for injury and pain, MS/Extremity: Negative for injury and deformity, Skin: Positive for facial redness and swelling Neuro: Negative for headache, weakness, numbness, tingling, and seizure, Exam: 11:11 Constitutional: This is a well developed, well nourished patient who is awake, alert, rn and in no acute distress. Head/Face: Atraumatic. Mild edema across entire face, more prominent in the middle, no erythema of eyes proper, limited to periorbital tissues and face. No fluctuance. No open wounds. No crepitus. Eyes: Pupils equal round and reactive to light, extra-ocular motions intact. Lids and lashes normal. Conjunctiva and sclera are non-icteric and not injected. Cornea within normal limits. ENT: No stridor, Mucous membranes moist Neck: Trachea midline, no masses palpated. Supple, full range of motion without nuchal rigidity, or vertebral point tenderness. No Meningismus. Tender anterior cervical lymphadenopathy Cardiovascular: Regular rate and rhythm. No pulse deficits. Respiratory: No increased work of breathing, no retractions or nasal flaring. Neuro: Awake and alert, GCS 15, oriented to person, place, time, and situation. Cranial nerves II-XII grossly intact. Sensory grossly intact. Cerebellar exam normal. Normal gait. Vital Signs: 11:05 BP 103 / 69; Pulse 92; Resp 16; Temp 99.4(O); Pulse Ox 96% on R/A; Weight 82.55 kg; hb Height 5 ft. 11 in. ; Pain 8/10; 11:29 Pulse 90; Resp 18; Pulse Ox 95% on R/A; jl7 11:46 BP 100 / 63; Pulse 86; Resp 26; Pulse Ox 96% on R/A; jl7 12:48 BP 103 / 69; Pulse 83; Resp 18; Pulse Ox 97% on R/A; Pain 0/10; jl7 11:05 Body Mass Index 25.38 (82.55 kg, 180.34 cm) hb 11:05 Pain Scale: Adult hb 12:48 Pain Scale: Adult jl7 MDM: 10:43 Patient medically screened. rn 12:25 Differential diagnosis: cellulitis, sinusitis, deep space infection. Data reviewed: rn vital signs, nurses notes, lab test result(s), and as a result, I will admit patient. Consideration of Admission/Observation Patient was admitted/placed on observation. Escalation of care including admission/observation considered. Management of patient was discussed with the following: Primary Care Provider: Dr. Hickey. Care significantly affected by the following chronic conditions: Hypertension. Counseling: I had a detailed discussion with the patient and/or guardian regarding the historical points, exam findings, and any diagnostic results supporting the discharge/admit diagnosis, lab results, radiology results, the need for further work-up and treatment in the hospital. 11/17 11:01 Order name: CBC with Diff; Complete Time: 12:11/17 11:01 Order name: Basic Metabolic Panel; Complete Time: 12:11/17 11:01 Order name: Protime (+inr); Complete Time: 12:11/17 11:01 Order name: Ptt, Activated; Complete Time: 12:11/17 11:01 Order name: Blood Culture Adult (2) 11/17 11:01 Order name: Lactate w/ 2H reflex if indic.; Complete Time: 12:11/17 11:01 Order name: CT Facial Bones W/ Con \T\ Mpr; Complete Time: 12:11/17 11:01 Order name: CT Head Brain wo Cont; Complete Time: 12:11/17 11:04 Order name: EKG; Complete Time: 11:11/17 11:01 Order name: IV Start; Complete Time: 11:11/17 11:04 Order name: Cardiac monitoring; Complete Time: 11:11/17 11:04 Order name: EKG - Nurse/Tech; Complete Time: 11:11/17 11:04 Order name: IV Saline Lock - Large Bore; Complete Time: 11:11/17 11:04 Order name: Labs collected and sent; Complete Time: :11/17 11:04 Order name: O2 Per Protocol; Complete Time: :11/17 11:04 Order name: O2 Sat Monitoring; Complete Time: :11/17 11:04 Order name: Vital Signs; Complete Time: 11:30 rn Administered Medications: 12:24 Drug: vancoMYCIN IVPB 1 grams IVPB once over 2 hrs Route: IVPB; Infused Over: 2 hrs; jl7 Site: right antecubital; 13:56 Drug: Piperacillin-Tazobactam IVPB 3.375 grams IVPB once over 60 mins; (mix in NS 100 jl7 mL) Route: IVPB; Infused Over: 60 mins; Site: right antecubital; Disposition Summary: 11/17/22 12:27 Hospitalization Ordered Notes: Hospitalization Status: Inpatient Admission rn Provider: Ander Hickey rn Location: Telemetry/MedSur (Inpatient) rn Condition: Stable rn Problem: new rn Symptoms: have improved rn Bed/Room Type: Standard rn Room Assignment: 214(11/17/22 14:06) eb Diagnosis - Cellulitis of face infusion rn Instructions: - Discharge Summary Sheet rn Forms: - Medication Reconciliation Form rn - SBAR form rn - Leadership Thank You Letter rn Prescriptions: - Bactrim DS 800-160 mg Oral Tablet - take 1 tablet ORAL route every 12 hours for 10 days; 20 tablet; Refills: 0, rn Product Selection Permitted Signatures: Dispatcher [employer] EDMS Marcelino Leo MD MD rn Baxter, Heather RN Quique Walter RN RN jl7 Kathryn Adrian Corrections: (The following items were deleted from the chart) 11:13 11:11 Constitutional: Negative for fever, chills, and weight loss, Neck: Negative for rn injury, pain, and swelling, Cardiovascular: Negative for chest pain, palpitations, and edema, Respiratory: Negative for shortness of breath, cough, wheezing, and pleuritic chest pain, Abdomen/GI: Negative for abdominal pain, nausea, vomiting, diarrhea, and constipation, Back: Negative for injury and pain, MS/Extremity: Negative for injury and deformity, Skin: Positive for facial redness and swelling Neuro: Negative for headache, weakness, numbness, tingling, and seizure, rn 14:06 12:27 rn eb
--- NOTE | 2022-11-17 12:28 | ER ---
Nurse's Notes [facility] Name: Randell Alvarenga Age: 66 yrs Sex: Male : 1955 Arrival Date: 11/17/2022 Time: 10:41 Bed 8 Private MD: Ander Hickey Diagnosis: Cellulitis of face Presentation: 11/17 11:05 Chief complaint: Facial swelling x 2 days. Coronavirus screen: At this time, the client hb does not indicate any symptoms associated with coronavirus-19. Ebola Screen: No symptoms or risks identified at this time. Initial Sepsis Screen: Does the patient meet any 2 criteria? No. Patient's initial sepsis screen is negative. Does the patient have a suspected source of infection? No. Patient's initial sepsis screen is negative. Risk Assessment: Do you want to hurt yourself or someone else? Patient reports no desire to harm self or others. Onset of symptoms was November 16, 2022. 11:05 Method Of Arrival: Ambulatory hb 11:05 Acuity: HEENA 3 hb Historical: - Allergies: 11:06 No Known Allergies; hb - Home Meds: 11:06 Protonix Oral [Active]; hb - PMHx: 11:06 Hypertension; High Cholesterol; Acid Reflux; Degenerative Arthritis; hb - PSHx: 11:06 Spinal Cord Stimulator; Knees - Bilateral; Shoulder - Right; Laminectomy; Carpal Tunnel hb - Bilateral; - Immunization history:: Adult Immunizations up to date. - Family history:: not pertinent. - Social history:: Smoking status: Patient denies any tobacco usage or history of. Patient/guardian denies using alcohol. - Hospitalizations: : No recent hospitalization is reported. Screenin:29 [facility] ED Fall Risk Assessment (Adult) History of falling in the last 3 months, jl7 including since admission No falls in past 3 months (0 pts). Abuse screen: Denies threats or abuse. Denies injuries from another. Nutritional screening: No deficits noted. Tuberculosis screening: No symptoms or risk factors identified. Assessment: 11:29 General: Appears in no apparent distress. comfortable, Behavior is calm, cooperative, jl7 appropriate for age. Pain: Denies pain. Neuro: Level of Consciousness is awake, alert, obeys commands, Oriented to person, place, time, situation. Cardiovascular: Capillary refill < 3 seconds Patient's skin is warm and dry. Rhythm is sinus rhythm. Respiratory: Airway is patent Respiratory effort is even, unlabored. GI: Abdomen is flat, non-distended. : No signs and/or symptoms were reported regarding the genitourinary system. EENT: Swelling to entire face and eys. Derm:. Musculoskeletal: No signs and/or symptoms reported regarding the musculoskeletal system. 12:48 Reassessment: Patient appears in no apparent distress at this time. No changes from jl7 previously documented assessment. Patient and/or family updated on plan of care and expected duration. Pain level reassessed. Patient is alert, oriented x 3, equal unlabored respirations, skin warm/dry/pink. Vital Signs: 11:05 BP 103 / 69; Pulse 92; Resp 16; Temp 99.4(O); Pulse Ox 96% on R/A; Weight 82.55 kg; hb Height 5 ft. 11 in. ; Pain 8/10; 11:29 Pulse 90; Resp 18; Pulse Ox 95% on R/A; jl7 11:46 BP 100 / 63; Pulse 86; Resp 26; Pulse Ox 96% on R/A; jl7 12:48 BP 103 / 69; Pulse 83; Resp 18; Pulse Ox 97% on R/A; Pain 0/10; jl7 11:05 Body Mass Index 25.38 (82.55 kg, 180.34 cm) hb 11:05 Pain Scale: Adult hb 12:48 Pain Scale: Adult jl7 ED Course: 10:43 Patient arrived in ED. rg4 10:43 Ander Hickey MD is Private Physician. rg4 10:43 Marcelino Leo MD is Attending Physician. rn 11:06 Triage completed. hb 11:08 Arm band placed on. hb 11:29 Quique Boyd, ARGELIA is Primary Nurse. jl7 11:29 Patient has correct armband on for positive identification. Placed in gown. Bed in low jl7 position. Call light in reach. Side rails up X2. child monitor on. Pulse ox on. NIBP on. Door closed. Noise minimized. Warm blanket given. 11:29 No provider procedures requiring assistance completed. jl7 11:29 Inserted saline lock: 18 gauge in right antecubital area, using aseptic technique. jl7 Blood collected. 11:46 Blood Culture Adult (2) Sent. jl7 11:46 Lactate w/ 2H reflex if indic. Sent. jl7 11:46 Protime (+inr) Sent. jl7 11:46 Ptt, Activated Sent. jl7 11:46 Basic Metabolic Panel Sent. jl7 11:46 CBC with Diff Sent. jl7 12:18 CT Facial Bones W/ Con \T\ Mpr In Process Unspecified. EDMS 12:18 CT Head Brain wo Cont In Process Unspecified. EDMS 12:26 Ander Hickey MD is Hospitalizing Provider. rn 14:39 Patient admitted, IV remains in place. jl7 Administered Medications: 12:24 Drug: vancoMYCIN IVPB 1 grams IVPB once over 2 hrs Route: IVPB; Infused Over: 2 hrs; jl7 Site: right antecubital; 13:56 Drug: Piperacillin-Tazobactam IVPB 3.375 grams IVPB once over 60 mins; (mix in NS 100 jl7 mL) Route: IVPB; Infused Over: 60 mins; Site: right antecubital; Medication: 14:39 VIS not applicable for this client. jl7 Outcome: 12:27 Decision to Hospitalize by Provider. rn 14:38 Admitted to Med/surg accompanied by tech, via wheelchair, room 214, Report called to rajan Lawrence RN 14:38 Condition: stable 14:38 Instructed on the need for admit, 14:39 Patient left the ED. jl7 Signatures: Dispatcher [employer] Marcelino Raymond MD MD rn Baxter, Heather, RN RN hb Garcia, Rubi rg4 Quique Boyd RN RN jl7
[2022-11-17] MEDS ORDERED: ONDANSETRON 4 MG/2 ML VIAL IV PRN (14:49)
[2022-11-17] MEDS ORDERED: ACETAMINOPHEN 500 MG TAB PO PRN (14:49)
[2022-11-17 14:59] VITALS: BMI 25.5
[2022-11-17] MEDS ORDERED: VANCOMYCIN 1 GM in NA CHLORIDE 0.9% 250 ML IVPB ONE (16:00)
[2022-11-17] MEDS ORDERED: INFLUENZA VACCINE (for 6+ mo) 0.5 ML DOSE IMVAC ONE (16:00)
[2022-11-17] MEDS ORDERED: dexAMETHasone 4 MG/ML VIAL IV ONE (17:21)
--- NOTE | 2022-11-17 17:26 | P.HP ---
Certification for Inpatient Patient admitted to: Inpatient With expected LOS: >2 Midnights Patient will require the following post-hospital care: None Practitioner: I am a practitioner with admitting privileges, knowledge of patient current condition, hospital course, and medical plan of care. Services: Services provided to patient in accordance with Admission requirements found in Title 42 Section 412.3 of the Code of Federal Regulations Patient History Date of Service: 11/17/22 Primary Care Provider: Ruperto Reason for admission: sinusitis History of Present Illness: Patient with a history of GERD, HTN, hyperlipidemia and osteoarthritis. The patient has been having hay fever symptoms for the past few weeks. He started having swelling of the face from yesterday morning. Was continuing to worsen and the patient came to the office. He did have severe swelling and the patient was sent to the ER for admission. He had a normal CT scan and labs. Except for an elevated lactic acid Allergies No Known Allergies Allergy (Unverified 11/17/22 14:45) Home Medications: Gabapentin 300 mg PO 1300 11/17/22 - Past Medical/Surgical History Has patient received pneumonia vaccine in the past: Yes Diabetic: No -: HLD -: HTN -: Degenerative arthritis -: Acid Reflux -: LAURA knee replacements -: R shoulder replacement -: Spinal cord stimulator -: neck surgery - Family History Father -: Stroke - Social History Smoking Status: Never smoker Alcohol use: Yes CD- Drugs: No Caffeine use: Yes Place of Residence: Home Review of Systems 10-point ROS is otherwise unremarkable Eyes: Eyelid Inflammation ENT: Nose Congestion, Mouth Swelling Physical Examination - Vital Signs Temperature: 97.3 F Blood Pressure: 154/90 Pulse: 91 Respirations: 16 Pulse Ox (%): 98 - Physical Exam General: Alert, In no apparent distress HEENT: Atraumatic, PERRLA, Mucous membr. moist/pink, Other (significant swelling of the face and eyelids ), EOMI, Sclerae nonicteric Neck: Supple, 2+ carotid pulse no bruit, No LAD, Without JVD or thyroid abnormality Respiratory: Clear to auscultation bilaterally, Normal air movement Cardiovascular: Regular rate/rhythm, Normal S1 S2 Gastrointestinal: Normal bowel sounds, No tenderness Musculoskeletal: No tenderness Integumentary: No rashes Neurological: Normal gait, Normal speech, Normal strength at 5/5 x4 extr, Normal tone, Normal affect Lymphatics: No axilla or inguinal lymphadenopathy - Studies Laboratory Data (last 24 hrs) 11/17/22 11/17/22 11/17/22 11:31 11:31 11:31 WBC 9.40 Hgb 14.8 Hct 44.1 Plt Count 254 PT 11.4 INR 1.04 APTT 34.8 Sodium 135 L Potassium 3.5 BUN 10 Creatinine 1.00 Glucose 199 H Assessment and Plan - Problems (Diagnosis) (1) Acute sinusitis Current Visit: Yes Status: Acute Plan: will give one dose of steroid. Start him on antibiotics. Will order cultures. If negative will send him home on empheric antibiotics. Qualifiers: Sinusitis location: frontal Recurrence: non-recurrent Qualified Code(s): J01.10 - Acute frontal sinusitis, unspecified (2) Essential (primary) hypertension Current Visit: Yes Status: Acute Plan: restart his home meds. Adjust as needed (3) GERD (gastroesophageal reflux disease) Current Visit: Yes Status: Acute Plan: continue him on protonix Qualifiers: Esophagitis presence: without esophagitis Qualified Code(s): K21.9 - Gastro-esophageal reflux disease without esophagitis (4) Hyperlipidemia Current Visit: Yes Status: Chronic Plan: we can restart his home meds. Qualifiers: Hyperlipidemia type: moderate mixed hyperlipidemia not requiring statin therapy Qualified Code(s): E78.2 - Mixed hyperlipidemia Discharge Plan: Home Plan to discharge in: 48 Hours - Advance Directives Does patient have a Living Will: No Does patient have a Durable POA for Healthcare: No - Code Status/Comfort Care Code Status Assessed: Yes Code Status: Full Code Physician Review: Patient Assessed, Agree with Above Assessment and Plan Critical Care: No Time Spent Managing Pts Care (In Minutes): 70
[2022-11-17] MEDS ORDERED: HYDRALAZINE HCL 20 MG/ML VIAL IV PRN (17:33)
[2022-11-17] MEDS: IBUPROFEN 400 MG TAB PO SCH ×2 (18:21→21:00)
[2022-11-17 20:34] VITALS: O2SAT 92
[2022-11-17] MEDS ORDERED: ATORVASTATIN 40 MG TAB PO SCH (21:00)
[2022-11-17] MEDS ORDERED: AMITRIPTYLINE 50 MG TAB PO SCH (21:00)
[2022-11-17] MEDS: TRAMADOL HCL 50 MG TAB PO SCH (21:00)
[2022-11-17] MEDS ORDERED: METOPROLOL XL 25 MG TAB PO SCH (21:00)
[2022-11-18 04:39] LABS: Lymphocytes % 11.4 % (15.3-44.8); MCV 90.7 fL (80-100); MPV 8.4 fL (7.6-11.3); Platelets 273 thou/uL (152-406); RBC Red Blood Cell Count 4.96 M/uL (4.33-5.43)
[2022-11-18 04:45] LABS: Potassium 3.9 mEq/L (3.5-5.1)
[2022-11-18] MEDS ORDERED: VANCOMYCIN 1.5 GM in NA CHLORIDE 0.9% 500 ML IVPB SCH (06:00)
[2022-11-18] MEDS ORDERED: PANTOPRAZOLE 40MG TABLET PO SCH (07:30)
[2022-11-18] MEDS: TRAMADOL HCL 50 MG TAB PO SCH (08:58)
[2022-11-18] MEDS ORDERED: VENLAFAXINE HCL XR 75 MG CAP PO SCH (09:00)
[2022-11-18] MEDS ORDERED: AMLODIPINE 5 MG TAB PO SCH (09:00)
[2022-11-18] MEDS: IBUPROFEN 400 MG TAB PO SCH (09:06)
[2022-11-18 09:11] VITALS: BP 145/90; TEMP 97
--- NOTE | 2022-11-18 10:48 | P.DS ---
Admission Date: 11/17/22 Discharge Date: 11/18/22 Primary Care Provider: Ruperto Disposition: ROUTINE DISCHARGE Discharge Condition: GOOD Reason for Admission: sinusitis - Problems (1) Acute sinusitis Current Visit: Yes Status: Acute Qualifiers: Sinusitis location: frontal Recurrence: non-recurrent Qualified Code(s): J01.10 - Acute frontal sinusitis, unspecified (2) Essential (primary) hypertension Current Visit: Yes Status: Acute (3) GERD (gastroesophageal reflux disease) Current Visit: Yes Status: Acute Qualifiers: Esophagitis presence: without esophagitis Qualified Code(s): K21.9 - Gastro-esophageal reflux disease without esophagitis (4) Hyperlipidemia Current Visit: Yes Status: Chronic Qualifiers: Hyperlipidemia type: moderate mixed hyperlipidemia not requiring statin therapy Qualified Code(s): E78.2 - Mixed hyperlipidemia Brief History of Present Illness: Patient with a history of GERD, HTN, hyperlipidemia and osteoarthritis. The patient has been having hay fever symptoms for the past few weeks. He started having swelling of the face from yesterday morning. Was continuing to worsen and the patient came to the office. He did have severe swelling and the patient was sent to the ER for admission. He had a normal CT scan and labs. Except for an elevated lactic acid Hospital Course: Patient was admitted for facial swelling. Is improving. had steroids and iv antibiotics. Was treated with one dose of steroids and iv antibiotics. Will stop the lisinopril as this may be angiodema. Complement level is pending. Will discharge the patient on augmentin and a short course of prednisone Vital Signs/Physical Exam: Temp Pulse Resp BP Pulse Ox 97.0 F 72 16 145/90 H 99 11/18/22 08:00 11/18/22 08:00 11/18/22 08:00 11/18/22 08:00 11/18/22 08:00 General: Alert, In no apparent distress HEENT: Atraumatic, PERRLA, EOMI Neck: Supple, JVD not distended Respiratory: Clear to auscultation bilaterally, Normal air movement Cardiovascular: Regular rate/rhythm, Normal S1 S2 Gastrointestinal: Normal bowel sounds, No tenderness Musculoskeletal: No tenderness Integumentary: No rashes Neurological: Normal speech, Normal tone, Normal affect Lymphatics: No axilla or inguinal lymphadenopathy Laboratory Data at Discharge: WBC 8.40 thou/uL (4.3-10.9) 11/18/22 03:20 Hgb 15.1 g/dL (13.6-17.9) 11/18/22 03:20 Hct 45.0 % (39.6-49.0) 11/18/22 03:20 Plt Count 273 thou/uL (152-406) 11/18/22 03:20 PT 11.4 SECONDS (9.5-12.5) 11/17/22 11:31 INR 1.04 11/17/22 11:31 APTT 34.8 SECONDS (24.3-36.9) 11/17/22 11:31 Sodium 135 mEq/L (136-145) L 11/18/22 03:20 Potassium 3.9 mEq/L (3.5-5.1) 11/18/22 03:20 BUN 9 mg/dL (7-18) 11/18/22 03:20 Creatinine 0.75 mg/dL (0.70-1.30) 11/18/22 03:20 Glucose 180 mg/dL (74-106) H 11/18/22 03:20 Home Medications: Amitriptyline HCl 1 tab PO BEDTIME 11/17/22 Amlodipine [Norvasc*] 1 tab PO DAILY 11/17/22 Atorvastatin Calcium 1 tab PO BEDTIME 11/17/22 Etodolac 1 cap PO BID 11/17/22 Gabapentin 300 mg PO BID 11/17/22 Metoprolol Tartrate [Lopressor*] 1 tab PO BEDTIME 11/17/22 Pantoprazole [Protonix Tab*] 1 tab PO DAILY 11/17/22 Tamsulosin HCl 1 cap PO DAILY 11/17/22 Venlafaxine HCl [Venlafaxine HCl ER] 1 tab PO BEDTIME 11/17/22 Amoxicillin/Potassium Clav [Amox-Clav 875-125 mg Tablet] 1 each PO BID 7 Days #14 tab 11/18/22 Prednisone [Sterapred Ds] 10 mg PO DAILY 3 Days #3 tab 11/18/22 New Medications: Amoxicillin/Potassium Clav [Amox-Clav 875-125 mg Tablet] 1 each PO BID 7 Days #14 tab Prednisone [Sterapred Ds] 10 mg PO DAILY 3 Days #3 tab Diet: AHA Activity: Ad ping Followup: Ander Hickey MD [Primary Care Provider] -
[2022-11-18] MEDS ORDERED: GABAPENTIN 300 MG CAP PO SCH (13:00)
--- NOTE | 2022-11-20 12:39 | EKG ---
Test Date: 2022-11-17 Test Time: 11:43:03 Chisel Worker: Henna CORTEZ MEASUREMENT RESULTS: Intervals: Rate: 85 NV: 166 QRSD: 106 QT: 366 QTc: 435 Sheldon: P: 63 NV: 166 QRS: -40 T: 44 INTERPRETIVE STATEMENTS: Normal sinus rhythm Left axis deviation Abnormal ECG No previous ECG available for comparison Electronically Signed On 11-20-22 12:32:52 CDT by Kimo Canchola
== END 2022-11-18 11:32 | disposition home or self-care (01) ==
LOC: ER 10:41 → ERHOLD 13:30 → INTOOBSV 13:30 → 2ND 14:22
PROVIDERS: ADMIT Internal Medicine; ATTEND Internal Medicine
DX: J01.10 Acute frontal sinusitis, unspecified (principal); K21.9 Gastro-esophageal reflux disease without esophagitis; E78.5 Hyperlipidemia, unspecified; I10 Essential (primary) hypertension; M19.90 Unspecified osteoarthritis, unspecified site
CPT/HCPCS: 87040 ×2; 85025 ×2; 80048 ×2; 36415 ×2; 85610; 83605 ×2; 85730; 86162; 86160 ×2; 70450; 70487; 76377; 96375; 96374; 99285; Q9967; J1100; J2543; J7050 ×2; J7040; 93005; G0378

== ENCOUNTER 2023-04-02 16:00 | Observation (INO) | payer OTHER ==
--- OUTSIDE RECORDS SUMMARY | 2023-04-02 16:06 | XMS REPORT | Continuity of Care Document ---
Author Name Unknown Address [address] [facility] [address] [place] [address] [facility] thconnect Address [address] [facility] [address] [place] [address] Care Team Providers Care Head Sawyer Name Role Phone [email or web address]_[email or web address] Attending Clinician Unavaila ble LES_Duarte_Dieter_ Attending Clinician Unavail able FOG_Ahmed_Nabiha_PA Admitting Clinician Unavaila ble LES_Emmy Admitting Clinician Unavail able Payers Payer Name Policy Type Policy Number Effective Date Expirati on Date Source MEDICARE [place]: [employer] [id number] 2012 00:00:00 [employer] (MEDICARE SUPPLEMENT) [id number] [employer] (MEDICARE REPLACEMENT POS) [id number] Problems Condition Name Condition Details Condition Category Status Onset Date Resolution Date Last Treatment Date Treating Clinician Comments Source Lumbar spondylosi s Lumbar Spondylosi s Problem Active 08-23 00:00: 00 [facility] Cervical spondylosi s Cervical Spondylosi s Problem Active 04-05 00:00: 00 [facility] Displaceme nt of cervical interverte bral disc without myelopathy Displaceme nt of Cervical Interverte bral Disc without Myelopathy Problem Active 04-05 00:00: 00 [facility] Cervico-oc cipital neuralgia Cervico-oc cipital Neuralgia Problem Active 04-05 00:00: 00 [facility] Carpal tunnel syndrome of left wrist Carpal Tunnel Syndrome of Left Wrist Problem Active 2021-02 00:00: 00 [facility] Carpal tunnel syndrome of right wrist Carpal Tunnel Syndrome of Right Wrist Problem Active 2021-02 00:00: 00 [facility] Ulnar neuropathy of left arm Ulnar Neuropathy of Left Arm Problem Active 2021-02 00:00: 00 [facility] Ulnar neuropathy of right arm Ulnar Neuropathy of Right Arm Problem Active 2021-02 00:00: 00 [facility] Cervical radiculopa thy Cervical Radiculopa thy Problem Active 11-15 00:00: 00 [facility] Osteoarthr itis of knee Osteoarthr itis of Knee Problem Active 04-17 00:00: 00 [facility] Knee pain Knee Pain Problem Active 04-17 00:00: 00 [facility] Lumbar disc prolapse with radiculopa thy Lumbar Disc Prolapse with Radiculopa thy Problem Active 2017-02 00:00: 00 [facility] Degenerati on of lumbar interverte bral disc Degenerati on of Lumbar Interverte bral Disc Problem Active 2017-02 00:00: 00 [facility] 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 Problem Active 2017-02 00:00: 00 [facility] Carpal tunnel syndrome Carpal Tunnel Syndrome Problem Active 2017-02 00:00: 00 [facility] Idiopathic osteoarthr itis Idiopathic Osteoarthr itis Problem Active 2017-02 00:00: 00 [facility] 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 Problem Active 2017-02 00:00: 00 [facility] Ulnar nerve entrapment at elbow Ulnar Nerve Entrapment at Elbow Problem Active 2017-02 00:00: 00 [facility] Lumbar radiculopa thy Lumbar Radiculopa thy Problem Active 2017-02 00:00: 00 [facility] 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 Problem Active 2017-02 00:00: 00 [facility] Connective tissue and disc stenosis of interverte bral foramina Connective Tissue and Disc Stenosis of Interverte bral Foramina Problem Active 2017-02 00:00: 00 [facility] Spondyloli sthesis Spondyloli sthesis Problem Active 2017-02 00:00: 00 [facility] Bilateral carpal tunnel syndrome Bilateral Carpal Tunnel Syndrome Problem Active 2017-02 00:00: 00 [facility] Chronic pain syndrome Chronic Pain Syndrome Problem Active 2017-02 00:00: 00 [facility] Acquired hallux malleus Acquired Hallux Malleus Problem Active 2014-02 00:00: 00 [facility] Metatarsal annalise Metatarsal annalise Problem Active 2014-02 00:00: 00 [facility] Spinal stenosis of lumbar region Spinal Stenosis of Lumbar Region Problem Active 08-25 00:00: 00 [facility] Lumbosacra l spondylosi s without myelopathy Lumbosacra l Spondylosi s without Myelopathy Problem Active 08-06 00:00: 00 [facility] Radiculiti s due to displaceme nt of lumbar interverte bral disc Radiculiti s Due to Displaceme nt of Lumbar Interverte bral Disc Problem Active 08-06 00:00: 00 [facility] Degenerati on of cervicotho racic interverte bral disc Degenerati on of Cervicotho racic Interverte bral Disc Problem Active 08-06 00:00: 00 [facility] Low back pain Low Back Pain Problem Active 08-06 00:00: 00 [facility] Hypertensi ve disorder Hypertensi ve Disorder Problem Active 08-04 00:00: 00 [facility] Procedure aiding diagnosis Procedure Aiding Diagnosis Problem Active 06-17 00:00: 00 [facility] 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 Multiple-l evel Thoracic Spondylosi s with Radiculopa thy Problem Active 07-29 00:00: 00 [facility] 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 Complete Lesion of Cervical Spinal Cord at C6 Level Problem Active 07-29 00:00: 00 [facility] Arthropath y of right shoulder Arthropath y of Right Shoulder Problem Active 11-16 00:00: 00 [facility] Pain in thoracic spine Pain in Thoracic Spine Problem Active 04-07 00:00: 00 [facility] Allergies, Adverse Reactions, Alerts Allergy Name Allergy Type Status Severity Reaction(s) Onset Date Inactive Date Treating Clinician Comments Source No Known Drug Allergie s DA Active [place] 2017-02 00:00: 00 [facility] No Known Drug Allergie s DA Active [place] 2017-02 00:00: 00 [facility] hydrocod one DA Active [place] 2017-02 00:00: 00 [facility] No Known Drug Allergie s DA Active [place] 2017-02 00:00: 00 [facility] hydrocod one DA Active [place] 2017-02 00:00: 00 [facility] hydrocod one DA Active [place] 2014-02 00:00: 00 [facility] Hydrocod one Allergy to substanc e Active 11-05 00:00: 00 [facility] Social History Smoking Status Start Date Stop Date Source Never Smoker [facility] Ordered Medication Name Filled Medication Name Start Date Stop Date Current Medication? Ordering Clinician Indication Dosage Frequency Signature (SIG) Comments Components Source lovastatin 40 mg tablet RX by other lovastatin 40 mg tablet RX by other 2017-04-04 00:00: 00 No lovastatin 40 mg tablet RX by other [facility] venlafaxine 75 mg tablet RX by other venlafaxine 75 mg tablet RX by other 2017-02 00:00: 00 No venlafaxin e 75 mg tablet RX by other MD [facility] lovastatin 40 mg tablet RX by other lovastatin 40 mg tablet RX by other 2017-02 00:00: 00 No lovastatin 40 mg tablet RX by other MD [facility] venlafaxine 75 mg tablet RX by other venlafaxine 75 mg tablet RX by other 2017-02 00:00: 00 No venlafaxin e 75 mg tablet RX by other MD [facility] lovastatin 40 mg tablet RX by other lovastatin 40 mg tablet RX by other 2017-02 00:00: 00 No lovastatin 40 mg tablet RX by other MD [facility] venlafaxine 75 mg tablet RX by other venlafaxine 75 mg tablet RX by other 2017-02 00:00: 00 No venlafaxin e 75 mg tablet RX by other MD [facility] lovastatin 40 mg tablet RX by other lovastatin 40 mg tablet RX by other 2017-02 00:00: 00 No lovastatin 40 mg tablet RX by other MD [facility] venlafaxine 75 mg tablet RX by other venlafaxine 75 mg tablet RX by other 2017-02 00:00: 00 No venlafaxin e 75 mg tablet RX by other MD [facility] lovastatin 40 mg tablet RX by other lovastatin 40 mg tablet RX by other 2017-02 00:00: 00 No lovastatin 40 mg tablet RX by other MD [facility] venlafaxine 75 mg tablet RX by other venlafaxine 75 mg tablet RX by other 2017-02 00:00: 00 No venlafaxin e 75 mg tablet RX by other MD [facility] lovastatin 40 mg tablet RX by other lovastatin 40 mg tablet RX by other 2017-02 00:00: 00 No lovastatin 40 mg tablet RX by other MD [facility] lovastatin 40 mg tablet RX by other lovastatin 40 mg tablet RX by other 2017-02 00:00: 00 No lovastatin 40 mg tablet RX by other MD [facility] venlafaxine 75 mg tablet RX by other venlafaxine 75 mg tablet RX by other 2017-02 00:00: 00 No venlafaxin e 75 mg tablet RX by other MD [facility] venlafaxine 75 mg tablet RX by other venlafaxine 75 mg tablet RX by other 2017-02 00:00: 00 No venlafaxin e 75 mg tablet RX by other MD [facility] triamcinolo ne acetonide 0.1 %-emollient comb.no.45 topical cream triamcinolo ne acetonide 0.1 %-emollient comb.no.45 topical cream 2017-02 00:00: 00 No triamcinol one acetonide 0.1 %-emollien t comb.no.45 topical cream [facility] triamcinolo ne acetonide 0.1 %-emollient comb.no.45 topical cream triamcinolo ne acetonide 0.1 %-emollient comb.no.45 topical cream 2017-02 00:00: 00 No triamcinol one acetonide 0.1 %-emollien t comb.no.45 topical cream [facility] triamcinolo ne acetonide 0.1 %-emollient comb.no.45 topical cream triamcinolo ne acetonide 0.1 %-emollient comb.no.45 topical cream 2017-02 00:00: 00 No triamcinol one acetonide 0.1 %-emollien t comb.no.45 topical cream [facility] triamcinolo ne acetonide 0.1 %-emollient comb.no.45 topical cream triamcinolo ne acetonide 0.1 %-emollient comb.no.45 topical cream 2017-02 00:00: 00 No triamcinol one acetonide 0.1 %-emollien t comb.no.45 topical cream [facility] triamcinolo ne acetonide 0.1 %-emollient comb.no.45 topical cream triamcinolo ne acetonide 0.1 %-emollient comb.no.45 topical cream 2017-02 00:00: 00 No triamcinol one acetonide 0.1 %-emollien t comb.no.45 topical cream [facility] triamcinolo ne acetonide 0.1 %-emollient comb.no.45 topical cream triamcinolo ne acetonide 0.1 %-emollient comb.no.45 topical cream 2017-02 00:00: 00 No triamcinol one acetonide 0.1 %-emollien t comb.no.45 topical cream [facility] amlodipine 10 mg tablet amlodipine 10 mg tablet 07-27 00:00: 00 No amlodipine 10 mg tablet [facility] nabumetone 750 mg tablet nabumetone 750 mg tablet 07-27 00:00: 00 No nabumetone 750 mg tablet [facility] amlodipine 10 mg tablet amlodipine 10 mg tablet 07-27 00:00: 00 No amlodipine 10 mg tablet [facility] nabumetone 750 mg tablet nabumetone 750 mg tablet 07-27 00:00: 00 No nabumetone 750 mg tablet [facility] amlodipine 10 mg tablet amlodipine 10 mg tablet 07-27 00:00: 00 No amlodipine 10 mg tablet [facility] nabumetone 750 mg tablet nabumetone 750 mg tablet 07-27 00:00: 00 No nabumetone 750 mg tablet [facility] amlodipine 10 mg tablet amlodipine 10 mg tablet 07-27 00:00: 00 No amlodipine 10 mg tablet [facility] nabumetone 750 mg tablet nabumetone 750 mg tablet 07-27 00:00: 00 No nabumetone 750 mg tablet [facility] amlodipine 10 mg tablet amlodipine 10 mg tablet 07-27 00:00: 00 No amlodipine 10 mg tablet [facility] nabumetone 750 mg tablet nabumetone 750 mg tablet 07-27 00:00: 00 No nabumetone 750 mg tablet [facility] amlodipine 10 mg tablet amlodipine 10 mg tablet 07-27 00:00: 00 No amlodipine 10 mg tablet [facility] nabumetone 750 mg tablet nabumetone 750 mg tablet 07-27 00:00: 00 No nabumetone 750 mg tablet [facility] amiloride 5 mg tablet amiloride 5 mg tablet 03-24 00:00: 00 No amiloride 5 mg tablet [facility] Effexor XR 150 mg capsule,ext ended release Effexor XR 150 mg capsule,ext ended release 03-24 00:00: 00 No Effexor XR 150 mg capsule,ex tended release [facility] Lotrel 10 mg-40 mg capsule Lotrel 10 mg-40 mg capsule 03-24 00:00: 00 No Lotrel 10 mg-40 mg capsule [facility] amiloride 5 mg tablet amiloride 5 mg tablet 03-24 00:00: 00 No amiloride 5 mg tablet [facility] Effexor XR 150 mg capsule,ext ended release Effexor XR 150 mg capsule,ext ended release 03-24 00:00: 00 No Effexor XR 150 mg capsule,ex tended release [facility] Lotrel 10 mg-40 mg capsule Lotrel 10 mg-40 mg capsule 03-24 00:00: 00 No Lotrel 10 mg-40 mg capsule [facility] amiloride 5 mg tablet amiloride 5 mg tablet 03-24 00:00: 00 No amiloride 5 mg tablet [facility] Effexor XR 150 mg capsule,ext ended release Effexor XR 150 mg capsule,ext ended release 03-24 00:00: 00 No Effexor XR 150 mg capsule,ex tended release [facility] Lotrel 10 mg-40 mg capsule Lotrel 10 mg-40 mg capsule 03-24 00:00: 00 No Lotrel 10 mg-40 mg capsule [facility] amiloride 5 mg tablet amiloride 5 mg tablet 03-24 00:00: 00 No amiloride 5 mg tablet [facility] Effexor XR 150 mg capsule,ext ended release Effexor XR 150 mg capsule,ext ended release 03-24 00:00: 00 No Effexor XR 150 mg capsule,ex tended release [facility] Lotrel 10 mg-40 mg capsule Lotrel 10 mg-40 mg capsule 03-24 00:00: 00 No Lotrel 10 mg-40 mg capsule [facility] amiloride 5 mg tablet amiloride 5 mg tablet 03-24 00:00: 00 No amiloride 5 mg tablet [facility] Effexor XR 150 mg capsule,ext ended release Effexor XR 150 mg capsule,ext ended release 03-24 00:00: 00 No Effexor XR 150 mg capsule,ex tended release [facility] Lotrel 10 mg-40 mg capsule Lotrel 10 mg-40 mg capsule 03-24 00:00: 00 No Lotrel 10 mg-40 mg capsule [facility] amiloride 5 mg tablet amiloride 5 mg tablet 03-24 00:00: 00 No amiloride 5 mg tablet [facility] Effexor XR 150 mg capsule,ext ended release Effexor XR 150 mg capsule,ext ended release 03-24 00:00: 00 No Effexor XR 150 mg capsule,ex tended release [facility] Lotrel 10 mg-40 mg capsule Lotrel 10 mg-40 mg capsule 03-24 00:00: 00 No Lotrel 10 mg-40 mg capsule [facility] amitriptyli ne 10 mg tablet RX by other MD pabon ne 10 mg tablet RX by other [id number] 00:00: 00 No amitriptyl ine 10 mg tablet RX by other MD [facility] amitriptyli ne 10 mg tablet RX by other MD pabon ne 10 mg tablet RX by other [id number] 00:00: 00 No amitriptyl ine 10 mg tablet RX by other MD [facility] amitriptyli ne 10 mg tablet RX by other MD pabon ne 10 mg tablet RX by other [id number] 00:00: 00 No amitriptyl ine 10 mg tablet RX by other MD [facility] amitriptyli ne 10 mg tablet RX by other MD pabon ne 10 mg tablet RX by other [id number] 00:00: 00 No amitriptyl ine 10 mg tablet RX by other MD [facility] amitriptyli ne 10 mg tablet RX by other MD pabon ne 10 mg tablet RX by other [id number] 00:00: 00 No amitriptyl ine 10 mg tablet RX by other MD [facility] amitriptyli ne 10 mg tablet RX by other MD pabon ne 10 mg tablet RX by other [id number] 08-04 00:00: 00 No amitriptyl ine 10 mg tablet RX by other MD [facility] amitriptyli ne 10 mg tablet RX by other MD pabon ne 10 mg tablet RX by other [id number] 08-04 00:00: 00 No amitriptyl ine 10 mg tablet RX by other MD [facility] amitriptyli ne 150 mg tablet amitriptyli ne 150 mg tablet No amitriptyl ine 150 mg tablet [facility] amlodipine 5 mg tablet amlodipine 5 mg tablet No amlodipine 5 mg tablet [facility] amoxicillin 875 mg tablet TAKE 1 TABLET BY MOUTH TWICE DAILY amoxicillin 875 mg tablet TAKE 1 TABLET BY MOUTH TWICE DAILY No amoxicilli n 875 mg tablet TAKE 1 TABLET BY MOUTH TWICE DAILY [facility] atorvastati n 40 mg tablet TAKE 1 TABLET BY MOUTH AT BEDTIME atorvastati n 40 mg tablet TAKE 1 TABLET BY MOUTH AT BEDTIME No atorvastat in 40 mg tablet TAKE 1 TABLET BY MOUTH AT BEDTIME [facility] benzonatate 200 mg capsule TAKE 1 CAPSULE BY MOUTH THREE TIMES DAILY NEEDED FOR COUGH benzonatate 200 mg capsule TAKE 1 CAPSULE BY MOUTH THREE TIMES DAILY NEEDED FOR COUGH No benzonatat e 200 mg capsule TAKE 1 CAPSULE BY MOUTH THREE TIMES DAILY NEEDED FOR COUGH [facility] celecoxib 200 mg capsule TAKE 1 CAPSULE BY MOUTH TWICE A DAY BEFORE SURGERY, THEN TAKE 1 CAPSULE THE MORNING OF SURGERY celecoxib 200 mg capsule TAKE 1 CAPSULE BY MOUTH TWICE A DAY BEFORE SURGERY, THEN TAKE 1 CAPSULE THE MORNING OF SURGERY No celecoxib 200 mg capsule TAKE 1 CAPSULE BY MOUTH TWICE A DAY BEFORE SURGERY, THEN TAKE 1 CAPSULE THE MORNING OF SURGERY [facility] dexamethaso ne 4 mg tablet TAKE 1 TABLET BY MOUTH ONCE DAILY dexamethaso ne 4 mg tablet TAKE 1 TABLET BY MOUTH ONCE DAILY No dexamethas one 4 mg tablet TAKE 1 TABLET BY MOUTH ONCE DAILY [facility] diclofenac 1 % topical gel APPLY TOPICALLY TWICE DAILY diclofenac 1 % topical gel APPLY TOPICALLY TWICE DAILY No diclofenac 1 % topical gel APPLY TOPICALLY TWICE DAILY [facility] ergocalcife rol (vitamin D2) 1,250 mcg (50,000 unit) capsule TAKE 1 CAPSULE BY MOUTH ONCE A WEEK ergocalcife rol (vitamin D2) 1,250 mcg (50,000 unit) capsule TAKE 1 CAPSULE BY MOUTH ONCE A WEEK No ergocalcif carlitos (vitamin D2) 1,250 mcg (50,000 unit) capsule TAKE 1 CAPSULE BY MOUTH ONCE A WEEK [facility] gabapentin 300 mg capsule TAKE 1 CAPSULE BY MOUTH TWICE A DAY FOR 30 DAYS gabapentin 300 mg capsule TAKE 1 CAPSULE BY MOUTH TWICE A DAY FOR 30 DAYS No gabapentin 300 mg capsule TAKE 1 CAPSULE BY MOUTH TWICE A DAY FOR 30 DAYS [facility] hydrochloro thiazide 25 mg tablet TAKE 1 TABLET BY MOUTH ONCE DAILY hydrochloro thiazide 25 mg tablet TAKE 1 TABLET BY MOUTH ONCE DAILY No hydrochlor othiazide 25 mg tablet TAKE 1 TABLET BY MOUTH ONCE DAILY [facility] lisinopril 40 mg tablet RX by other lisinopril 40 mg tablet RX by other MD No lisinopril 40 mg tablet RX [facility] other [facility] methocarbam ol 750 mg tablet methocarbam ol 750 mg tablet No methocarba mol 750 mg tablet [facility] methylpredn isolone 4 mg tablets in a dose pack TAKE DIRECTED methylpredn isolone 4 mg tablets in a dose pack TAKE DIRECTED No methylpred nisolone 4 mg tablets in a dose pack TAKE DIRECTED [facility] metoprolol succinate ER 25 mg tablet,exte nded release 24 hr TAKE 1 TABLET BY MOUTH EVERY DAY metoprolol succinate ER 25 mg tablet,exte nded release 24 hr TAKE 1 TABLET BY MOUTH EVERY DAY No metoprolol succinate ER 25 mg tablet,ext ended release 24 hr TAKE 1 TABLET BY MOUTH EVERY DAY [facility] montelukast 10 mg tablet TAKE 1 TABLET BY MOUTH ONCE DAILY montelukast 10 mg tablet TAKE 1 TABLET BY MOUTH ONCE DAILY No montelukas t 10 mg tablet TAKE 1 TABLET BY MOUTH ONCE DAILY [facility] mupirocin 2 % topical ointment APPLY TO RIGHT KNEE PRE-OPERATI ON ONCE DAILY mupirocin 2 % topical ointment APPLY TO RIGHT KNEE PRE-OPERATI ON ONCE DAILY No mupirocin 2 % topical ointment APPLY TO RIGHT KNEE PRE-OPERAT ION ONCE DAILY [facility] ondansetron HCl 4 mg tablet TAKE 1 TABLET BY MOUTH EVERY 8 HOURS ondansetron HCl 4 mg tablet TAKE 1 TABLET BY MOUTH EVERY 8 HOURS No ondansetro n HCl 4 mg tablet TAKE 1 TABLET BY MOUTH EVERY 8 HOURS [facility] oxycodone-a cetaminophe n 10 mg-325 mg tablet oxycodone-a cetaminophe n 10 mg-325 mg tablet No oxycodone- acetaminop hen 10 mg-325 mg tablet [facility] pantoprazol e 40 mg tablet,mario yed release TAKE 1 TABLET BY MOUTH EVERY DAY pantoprazol e 40 mg tablet,mario yed release TAKE 1 TABLET BY MOUTH EVERY DAY No pantoprazo le 40 mg tablet,del ayed release TAKE 1 TABLET BY MOUTH EVERY DAY [facility] prednisone 20 mg tablet TAKE 1 TABLET BY MOUTH ONCE DAILY prednisone 20 mg tablet TAKE 1 TABLET BY MOUTH ONCE DAILY No prednisone 20 mg tablet TAKE 1 TABLET BY MOUTH ONCE DAILY [facility] sildenafil 100 mg tablet TAKE 1 TABLET BY MOUTH ONCE DAILY 30 MINUTES PRIOR TO SEXUAL ACTIVITY sildenafil 100 mg tablet TAKE 1 TABLET BY MOUTH ONCE DAILY 30 MINUTES PRIOR TO SEXUAL ACTIVITY No sildenafil 100 mg tablet TAKE 1 TABLET BY MOUTH ONCE DAILY 30 MINUTES PRIOR TO SEXUAL ACTIVITY [facility] Sudogest 30 mg tablet TAKE 1 TABLET BY MOUTH EVERY 4 TO 6 HOURS NEEDED FOR CONGESTION Sudogest 30 mg tablet TAKE 1 TABLET BY MOUTH EVERY 4 TO 6 HOURS NEEDED FOR CONGESTION No Sudogest 30 mg tablet TAKE 1 TABLET BY MOUTH EVERY 4 TO 6 HOURS NEEDED FOR CONGESTION [facility] tamsulosin 0.4 mg capsule TAKE 1 CAPSULE BY MOUTH ONCE DAILY tamsulosin 0.4 mg capsule TAKE 1 CAPSULE BY MOUTH ONCE DAILY No tamsulosin 0.4 mg capsule TAKE 1 CAPSULE BY MOUTH ONCE DAILY [facility] tramadol 50 mg tablet TAKE 1 TABLET BY MOUTH TWICE A DAY NEEDED FOR 30 DAYS tramadol 50 mg tablet TAKE 1 TABLET BY MOUTH TWICE A DAY NEEDED FOR 30 DAYS No tramadol 50 mg tablet TAKE 1 TABLET BY MOUTH TWICE A DAY NEEDED FOR 30 DAYS [facility] vardenafil 20 mg tablet TAKE ONE TABLET BY MOUTH DIRECTED NEEDED; START: ONE-HALF TABLET DOSE; MAX OF 20MG/DOSE PER 24 HOURS: TAKE ONE HOUR BEFORE SEXUAL ACTIVITY vardenafil 20 mg tablet TAKE ONE TABLET BY MOUTH DIRECTED NEEDED; START: ONE-HALF TABLET DOSE; MAX OF 20MG/DOSE PER 24 HOURS: TAKE ONE HOUR BEFORE SEXUAL ACTIVITY No vardenafil 20 mg tablet TAKE ONE TABLET BY MOUTH DIRECTED NEEDED; START: ONE-HALF TABLET DOSE; MAX OF 20MG/DOSE PER 24 HOURS: TAKE ONE HOUR BEFORE SEXUAL ACTIVITY [facility] venlafaxine ER 75 mg capsule,ext ended release 24 hr RX by other venlafaxine ER 75 mg capsule,ext ended release 24 hr RX by other MD No venlafaxin e ER 75 mg capsule,ex tended release 24 hr RX by other MD [facility] acetaminoph en 300 mg-codeine 30 mg tablet TAKE 1 TABLET BY MOUTH EVERY 12 HOURS FOR 30 DAYS acetaminoph en 300 mg-codeine 30 mg tablet TAKE 1 TABLET BY MOUTH EVERY 12 HOURS FOR 30 DAYS No acetaminop hen 300 mg-codeine 30 mg tablet TAKE 1 TABLET BY MOUTH EVERY 12 HOURS FOR 30 DAYS [facility] amitriptyli ne 150 mg tablet amitriptyli ne 150 mg tablet No amitriptyl ine 150 mg tablet [facility] amlodipine 5 mg tablet amlodipine 5 mg tablet No amlodipine 5 mg tablet [facility] amoxicillin 875 mg tablet TAKE 1 TABLET BY MOUTH TWICE DAILY amoxicillin 875 mg tablet TAKE 1 TABLET BY MOUTH TWICE DAILY No amoxicilli n 875 mg tablet TAKE 1 TABLET BY MOUTH TWICE DAILY [facility] atorvastati n 40 mg tablet TAKE 1 TABLET BY MOUTH AT BEDTIME atorvastati n 40 mg tablet TAKE 1 TABLET BY MOUTH AT BEDTIME No atorvastat in 40 mg tablet TAKE 1 TABLET BY MOUTH AT BEDTIME [facility] benzonatate 200 mg capsule TAKE 1 CAPSULE BY MOUTH THREE TIMES DAILY NEEDED FOR COUGH benzonatate 200 mg capsule TAKE 1 CAPSULE BY MOUTH THREE TIMES DAILY NEEDED FOR COUGH No benzonatat e 200 mg capsule TAKE 1 CAPSULE BY MOUTH THREE TIMES DAILY NEEDED FOR COUGH [facility] celecoxib 200 mg capsule TAKE 1 CAPSULE BY MOUTH TWICE A DAY BEFORE SURGERY, THEN TAKE 1 CAPSULE THE MORNING OF SURGERY celecoxib 200 mg capsule TAKE 1 CAPSULE BY MOUTH TWICE A DAY BEFORE SURGERY, THEN TAKE 1 CAPSULE THE MORNING OF SURGERY No celecoxib 200 mg capsule TAKE 1 CAPSULE BY MOUTH TWICE A DAY BEFORE SURGERY, THEN TAKE 1 CAPSULE THE MORNING OF SURGERY [facility] dexamethaso ne 4 mg tablet TAKE 1 TABLET BY MOUTH ONCE DAILY dexamethaso ne 4 mg tablet TAKE 1 TABLET BY MOUTH ONCE DAILY No dexamethas one 4 mg tablet TAKE 1 TABLET BY MOUTH ONCE DAILY [facility] diclofenac 1 % topical gel APPLY TOPICALLY TWICE DAILY diclofenac 1 % topical gel APPLY TOPICALLY TWICE DAILY No diclofenac 1 % topical gel APPLY TOPICALLY TWICE DAILY [facility] ergocalcife rol (vitamin D2) 1,250 mcg (50,000 unit) capsule TAKE 1 CAPSULE BY MOUTH ONCE A WEEK ergocalcife rol (vitamin D2) 1,250 mcg (50,000 unit) capsule TAKE 1 CAPSULE BY MOUTH ONCE A WEEK No ergocalcif carlitos (vitamin D2) 1,250 mcg (50,000 unit) capsule TAKE 1 CAPSULE BY MOUTH ONCE A WEEK [facility] gabapentin 300 mg capsule TAKE 1 CAPSULE BY MOUTH TWICE A DAY FOR 30 DAYS gabapentin 300 mg capsule TAKE 1 CAPSULE BY MOUTH TWICE A DAY FOR 30 DAYS No gabapentin 300 mg capsule TAKE 1 CAPSULE BY MOUTH TWICE A DAY FOR 30 DAYS [facility] hydrochloro thiazide 25 mg tablet TAKE 1 TABLET BY MOUTH ONCE DAILY hydrochloro thiazide 25 mg tablet TAKE 1 TABLET BY MOUTH ONCE DAILY No hydrochlor othiazide 25 mg tablet TAKE 1 TABLET BY MOUTH ONCE DAILY [facility] lisinopril 40 mg tablet RX by other lisinopril 40 mg tablet RX by other No lisinopril 40 mg tablet RX by other MD [facility] methocarbam ol 750 mg tablet methocarbam ol 750 mg tablet No methocarba mol 750 mg tablet [facility] methylpredn isolone 4 mg tablets in a dose pack TAKE DIRECTED methylpredn isolone 4 mg tablets in a dose pack TAKE DIRECTED No methylpred nisolone 4 mg tablets in a dose pack TAKE DIRECTED [facility] metoprolol succinate ER 25 mg tablet,exte nded release 24 hr TAKE 1 TABLET BY MOUTH EVERY DAY metoprolol succinate ER 25 mg tablet,exte nded release 24 hr TAKE 1 TABLET BY MOUTH EVERY DAY No metoprolol succinate ER 25 mg tablet,ext ended release 24 hr TAKE 1 TABLET BY MOUTH EVERY DAY [facility] montelukast 10 mg tablet TAKE 1 TABLET BY MOUTH ONCE DAILY montelukast 10 mg tablet TAKE 1 TABLET BY MOUTH ONCE DAILY No montelukas t 10 mg tablet TAKE 1 TABLET BY MOUTH ONCE DAILY [facility] mupirocin 2 % topical ointment APPLY TO RIGHT KNEE PRE-OPERATI ON ONCE DAILY mupirocin 2 % topical ointment APPLY TO RIGHT KNEE PRE-OPERATI ON ONCE DAILY No mupirocin 2 % topical ointment APPLY TO RIGHT KNEE PRE-OPERAT ION ONCE DAILY [facility] ondansetron HCl 4 mg tablet TAKE 1 TABLET BY MOUTH EVERY 8 HOURS ondansetron HCl 4 mg tablet TAKE 1 TABLET BY MOUTH EVERY 8 HOURS No ondansetro n HCl 4 mg tablet TAKE 1 TABLET BY MOUTH EVERY 8 HOURS [facility] oxycodone-a cetaminophe n 10 mg-325 mg tablet oxycodone-a cetaminophe n 10 mg-325 mg tablet No oxycodone- acetaminop hen 10 mg-325 mg tablet [facility] pantoprazol e 40 mg tablet,mario yed release TAKE 1 TABLET BY MOUTH EVERY DAY pantoprazol e 40 mg tablet,mario yed release TAKE 1 TABLET BY MOUTH EVERY DAY No pantoprazo le 40 mg tablet,del ayed release TAKE 1 TABLET BY MOUTH EVERY DAY [facility] prednisone 20 mg tablet TAKE 1 TABLET BY MOUTH ONCE DAILY prednisone 20 mg tablet TAKE 1 TABLET BY MOUTH ONCE DAILY No prednisone 20 mg tablet TAKE 1 TABLET BY MOUTH ONCE DAILY [facility] sildenafil 100 mg tablet TAKE 1 TABLET BY MOUTH ONCE DAILY 30 MINUTES PRIOR TO SEXUAL ACTIVITY sildenafil 100 mg tablet TAKE 1 TABLET BY MOUTH ONCE DAILY 30 MINUTES PRIOR TO SEXUAL ACTIVITY No sildenafil 100 mg tablet TAKE 1 TABLET BY MOUTH ONCE DAILY 30 MINUTES PRIOR TO SEXUAL ACTIVITY [facility] Sudogest 30 mg tablet TAKE 1 TABLET BY MOUTH EVERY 4 TO 6 HOURS NEEDED FOR CONGESTION Sudogest 30 mg tablet TAKE 1 TABLET BY MOUTH EVERY 4 TO 6 HOURS NEEDED FOR CONGESTION No Sudogest 30 mg tablet TAKE 1 TABLET BY MOUTH EVERY 4 TO 6 HOURS NEEDED FOR CONGESTION [facility] tamsulosin 0.4 mg capsule TAKE 1 CAPSULE BY MOUTH ONCE DAILY tamsulosin 0.4 mg capsule TAKE 1 CAPSULE BY MOUTH ONCE DAILY No tamsulosin 0.4 mg capsule TAKE 1 CAPSULE BY MOUTH ONCE DAILY [facility] tramadol 50 mg tablet TAKE 1 TABLET BY MOUTH TWICE A DAY NEEDED FOR 30 DAYS tramadol 50 mg tablet TAKE 1 TABLET BY MOUTH TWICE A DAY NEEDED FOR 30 DAYS No tramadol 50 mg tablet TAKE 1 TABLET BY MOUTH TWICE A DAY NEEDED FOR 30 DAYS [facility] vardenafil 20 mg tablet TAKE ONE TABLET BY MOUTH DIRECTED NEEDED; START: ONE-HALF TABLET DOSE; MAX OF 20MG/DOSE PER 24 HOURS: TAKE ONE HOUR BEFORE SEXUAL ACTIVITY vardenafil 20 mg tablet TAKE ONE TABLET BY MOUTH DIRECTED NEEDED; START: ONE-HALF TABLET DOSE; MAX OF 20MG/DOSE PER 24 HOURS: TAKE ONE HOUR BEFORE SEXUAL ACTIVITY No vardenafil 20 mg tablet TAKE ONE TABLET BY MOUTH DIRECTED NEEDED; START: ONE-HALF TABLET DOSE; MAX OF 20MG/DOSE PER 24 HOURS: TAKE ONE HOUR BEFORE SEXUAL ACTIVITY [facility] venlafaxine ER 75 mg capsule,ext ended release 24 hr RX by other venlafaxine ER 75 mg capsule,ext ended release 24 hr RX by other No venlafaxin e ER 75 mg capsule,ex tended release 24 hr [facility] acetaminoph en 300 mg-codeine 30 mg tablet TAKE 1 TABLET BY MOUTH EVERY 12 HOURS FOR 30 DAYS acetaminoph en 300 mg-codeine 30 mg tablet TAKE 1 TABLET BY MOUTH EVERY 12 HOURS FOR 30 DAYS No acetaminop hen 300 mg-codeine 30 mg tablet TAKE 1 TABLET BY MOUTH EVERY 12 HOURS FOR 30 DAYS [facility] acetaminoph en 300 mg-codeine 60 mg tablet TAKE 1 TABLET BY MOUTH EVERY 6 HOURS NEEDED FOR 15 DAYS acetaminoph en 300 mg-codeine 60 mg tablet TAKE 1 TABLET BY MOUTH EVERY 6 HOURS NEEDED FOR 15 DAYS No acetaminop hen 300 mg-codeine 60 mg tablet TAKE 1 TABLET BY MOUTH EVERY 6 HOURS NEEDED FOR 15 DAYS [facility] albuterol sulfate 2.5 mg/3 mL (0.083 %) solution for nebulizatio n USE 1 VIAL IN NEBULIZER EVERY 6 HOURS NEEDED FOR SHORTNESS OF BREATH AND FOR COUGH albuterol sulfate 2.5 mg/3 mL (0.083 %) solution for nebulizatio n USE 1 VIAL IN NEBULIZER EVERY 6 HOURS NEEDED FOR SHORTNESS OF BREATH AND FOR COUGH No albuterol sulfate 2.5 mg/3 mL (0.083 %) solution for nebulizati on USE 1 VIAL IN NEBULIZER EVERY 6 HOURS NEEDED FOR SHORTNESS OF BREATH AND FOR COUGH [facility] amitriptyli ne 150 mg tablet amitriptyli ne 150 mg tablet No amitriptyl ine 150 mg tablet [facility] amlodipine 5 mg tablet amlodipine 5 mg tablet No amlodipine 5 mg tablet [facility] amoxicillin 500 mg capsule TAKE 1 CAPSULE BY MOUTH THREE TIMES DAILY amoxicillin 500 mg capsule TAKE 1 CAPSULE BY MOUTH THREE TIMES DAILY No amoxicilli n 500 mg capsule TAKE 1 CAPSULE BY MOUTH THREE TIMES DAILY [facility] amoxicillin 875 mg tablet TAKE 1 TABLET BY MOUTH TWICE DAILY amoxicillin 875 mg tablet TAKE 1 TABLET BY MOUTH TWICE DAILY No amoxicilli n 875 mg tablet TAKE 1 TABLET BY MOUTH TWICE DAILY [facility] atorvastati n 40 mg tablet TAKE 1 TABLET BY MOUTH AT BEDTIME atorvastati n 40 mg tablet TAKE 1 TABLET BY MOUTH AT BEDTIME No atorvastat in 40 mg tablet TAKE 1 TABLET BY MOUTH AT BEDTIME [facility] azithromyci n 250 mg tablet TAKE 2 TABLETS BY MOUTH ON DAY 1, AND THEN TAKE 1 TABLET BY MOUTH ONCE A DAY ON DAY 2 THROUGH DAY 5 azithromyci n 250 mg tablet TAKE 2 TABLETS BY MOUTH ON DAY 1, AND THEN TAKE 1 TABLET BY MOUTH ONCE A DAY ON DAY 2 THROUGH DAY 5 No azithromyc in 250 mg tablet TAKE 2 TABLETS BY MOUTH ON DAY 1, AND THEN TAKE 1 TABLET BY MOUTH ONCE A DAY ON DAY 2 THROUGH DAY 5 [facility] benzonatate 200 mg capsule TAKE 1 CAPSULE BY MOUTH THREE TIMES DAILY NEEDED FOR COUGH benzonatate 200 mg capsule TAKE 1 CAPSULE BY MOUTH THREE TIMES DAILY NEEDED FOR COUGH No benzonatat e 200 mg capsule TAKE 1 CAPSULE BY MOUTH THREE TIMES DAILY NEEDED FOR COUGH [facility] clindamycin HCl 300 mg capsule TAKE 1 CAPSULE BY MOUTH THREE TIMES DAILY clindamycin HCl 300 mg capsule TAKE 1 CAPSULE BY MOUTH THREE TIMES DAILY No clindamyci n HCl 300 mg capsule TAKE 1 CAPSULE BY MOUTH THREE TIMES DAILY [facility] dexamethaso ne 4 mg tablet TAKE 1 TABLET BY MOUTH ONCE DAILY dexamethaso ne 4 mg tablet TAKE 1 TABLET BY MOUTH ONCE DAILY No dexamethas one 4 mg tablet TAKE 1 TABLET BY MOUTH ONCE DAILY [facility] diclofenac 1 % topical gel APPLY TOPICALLY TWICE DAILY diclofenac 1 % topical gel APPLY TOPICALLY TWICE DAILY No diclofenac 1 % topical gel APPLY TOPICALLY TWICE DAILY [facility] ergocalcife rol (vitamin D2) 1,250 mcg (50,000 unit) capsule TAKE 1 CAPSULE BY MOUTH ONCE A WEEK ergocalcife rol (vitamin D2) 1,250 mcg (50,000 unit) capsule TAKE 1 CAPSULE BY MOUTH ONCE A WEEK No ergocalcif carlitos (vitamin D2) 1,250 mcg (50,000 unit) capsule TAKE 1 CAPSULE BY MOUTH ONCE A WEEK [facility] etodolac 300 mg capsule Take 1 capsule twice a day by oral route with meals for 30 days. etodolac 300 mg capsule Take 1 capsule twice a day by oral route with meals for 30 days. No 1capsul e(s) BID etodolac 300 mg capsule Take 1 capsule twice a day by oral route with meals for 30 days. [facility] gabapentin 300 mg capsule TAKE 1 CAPSULE BY MOUTH THREE TIMES DAILY FOR 30 DAYS gabapentin 300 mg capsule TAKE 1 CAPSULE BY MOUTH THREE TIMES DAILY FOR 30 DAYS No gabapentin 300 mg capsule TAKE 1 CAPSULE BY MOUTH THREE TIMES DAILY FOR 30 DAYS [facility] hydrochloro thiazide 25 mg tablet TAKE 1 TABLET BY MOUTH ONCE DAILY hydrochloro thiazide 25 mg tablet TAKE 1 TABLET BY MOUTH ONCE DAILY No hydrochlor othiazide 25 mg tablet TAKE 1 TABLET BY MOUTH ONCE DAILY [facility] InnoSpire Essence device USE DIRECTED InnoSp[employer] Essence device USE DIRECTED No InnoSpire Essence device USE DIRECTED [facility] lisinopril 40 mg tablet RX by other lisinopril 40 mg tablet RX by other MD No lisinopril 40 mg tablet [facility] methocarbam ol 750 mg tablet methocarbam ol 750 mg tablet No methocarba mol 750 mg tablet [facility] methylpredn isolone 4 mg tablets in a dose pack TAKE BY MOUTH DIRECTED ON INSIDE OF PACKAGE methylpredn isolone 4 mg tablets in a dose pack TAKE BY MOUTH DIRECTED ON INSIDE OF PACKAGE No methylpred nisolone 4 mg tablets in a dose pack TAKE BY MOUTH DIRECTED ON INSIDE OF PACKAGE [facility] metoprolol succinate ER 25 mg tablet,exte nded release 24 hr TAKE 1 TABLET BY MOUTH EVERY DAY metoprolol succinate ER 25 mg tablet,exte nded release 24 hr TAKE 1 TABLET BY MOUTH EVERY DAY No metoprolol succinate ER 25 mg tablet,ext ended release 24 hr TAKE 1 TABLET BY MOUTH EVERY DAY [facility] montelukast 10 mg tablet TAKE 1 TABLET BY MOUTH ONCE DAILY montelukast 10 mg tablet TAKE 1 TABLET BY MOUTH ONCE DAILY No montelukas t 10 mg tablet TAKE 1 TABLET BY MOUTH ONCE DAILY [facility] mupirocin 2 % topical ointment APPLY TO RIGHT KNEE PRE-OPERATI ON ONCE DAILY mupirocin 2 % topical ointment APPLY TO RIGHT KNEE PRE-OPERATI ON ONCE DAILY No mupirocin 2 % topical ointment APPLY TO RIGHT KNEE PRE-OPERAT ION ONCE DAILY [facility] ondansetron HCl 4 mg tablet TAKE 1 TABLET BY MOUTH EVERY 8 HOURS ondansetron HCl 4 mg tablet TAKE 1 TABLET BY MOUTH EVERY 8 HOURS No ondansetro n HCl 4 mg tablet TAKE 1 TABLET BY MOUTH EVERY 8 HOURS [facility] oxycodone-a cetaminophe n 10 mg-325 mg tablet oxycodone-a cetaminophe n 10 mg-325 mg tablet No oxycodone- acetaminop hen 10 mg-325 mg tablet [facility] pantoprazol e 40 mg tablet,mario yed release TAKE 1 TABLET BY MOUTH EVERY DAY pantoprazol e 40 mg tablet,mario yed release TAKE 1 TABLET BY MOUTH EVERY DAY No pantoprazo le 40 mg tablet,del ayed release TAKE 1 TABLET BY MOUTH EVERY DAY [facility] prednisone 20 mg tablet TAKE 2 TABLET BY MOUTH ONCE DAILY FOR 3 DAYS, THEN TAKE 1 TABLET ONCE DAILY FOR 2 DAYS prednisone 20 mg tablet TAKE 2 TABLET BY MOUTH ONCE DAILY FOR 3 DAYS, THEN TAKE 1 TABLET ONCE DAILY FOR 2 DAYS No prednisone 20 mg tablet TAKE 2 TABLET BY MOUTH ONCE DAILY FOR 3 DAYS, THEN TAKE 1 TABLET ONCE DAILY FOR 2 DAYS [facility] promethazin e-DM 6.25 mg-15 mg/5 mL oral syrup TAKE 10 ML BY MOUTH EVERY 6 TO 8 HOURS NEEDED FOR COUGH promethazin e-DM 6.25 mg-15 mg/5 mL oral syrup TAKE 10 ML BY MOUTH EVERY 6 TO 8 HOURS NEEDED FOR COUGH No promethazi ne-DM 6.25 mg-15 mg/5 mL oral syrup TAKE 10 ML BY MOUTH EVERY 6 TO 8 HOURS NEEDED FOR COUGH [facility] sildenafil 100 mg tablet TAKE 1 TABLET BY MOUTH ONCE DAILY 30 MINUTES PRIOR TO SEXUAL ACTIVITY sildenafil 100 mg tablet TAKE 1 TABLET BY MOUTH ONCE DAILY 30 MINUTES PRIOR TO SEXUAL ACTIVITY No sildenafil 100 mg tablet TAKE 1 TABLET BY MOUTH ONCE DAILY 30 MINUTES PRIOR TO SEXUAL ACTIVITY [facility] Sudogest 30 mg tablet TAKE 1 TABLET BY MOUTH EVERY 4 TO 6 HOURS NEEDED FOR CONGESTION Sudogest 30 mg tablet TAKE 1 TABLET BY MOUTH EVERY 4 TO 6 HOURS NEEDED FOR CONGESTION No Sudogest 30 mg tablet TAKE 1 TABLET BY MOUTH EVERY 4 TO 6 HOURS NEEDED FOR CONGESTION [facility] sulfamethox azole 800 mg-trimetho prim 160 mg tablet TAKE 1 TABLET BY MOUTH TWICE DAILY sulfamethox azole 800 mg-trimetho prim 160 mg tablet TAKE 1 TABLET BY MOUTH TWICE DAILY No sulfametho xazole 800 mg-trimeth oprim 160 mg tablet TAKE 1 TABLET BY MOUTH TWICE DAILY [facility] tamsulosin 0.4 mg capsule TAKE 1 CAPSULE BY MOUTH ONCE DAILY tamsulosin 0.4 mg capsule TAKE 1 CAPSULE BY MOUTH ONCE DAILY No tamsulosin 0.4 mg capsule TAKE 1 CAPSULE BY MOUTH ONCE DAILY [facility] tramadol 50 mg tablet TAKE 1 TABLET BY MOUTH TWICE A DAY NEEDED FOR 30 DAYS tramadol 50 mg tablet TAKE 1 TABLET BY MOUTH TWICE A DAY NEEDED FOR 30 DAYS No tramadol 50 mg tablet TAKE 1 TABLET BY MOUTH TWICE A DAY NEEDED FOR 30 DAYS [facility] vardenafil 20 mg tablet TAKE ONE TABLET BY MOUTH DIRECTED NEEDED; START: ONE-HALF TABLET DOSE; MAX OF 20MG/DOSE PER 24 HOURS: TAKE ONE HOUR BEFORE SEXUAL ACTIVITY vardenafil 20 mg tablet TAKE ONE TABLET BY MOUTH DIRECTED NEEDED; START: ONE-HALF TABLET DOSE; MAX OF 20MG/DOSE PER 24 HOURS: TAKE ONE HOUR BEFORE SEXUAL ACTIVITY No vardenafil 20 mg tablet TAKE ONE TABLET BY MOUTH DIRECTED NEEDED; START: ONE-HALF TABLET DOSE; MAX OF 20MG/DOSE PER 24 HOURS: TAKE ONE HOUR BEFORE SEXUAL ACTIVITY [facility] venlafaxine ER 75 mg capsule,ext ended release 24 hr RX by other venlafaxine ER 75 mg capsule,ext ended release 24 hr RX by other No venlafaxin e ER 75 mg capsule,ex tended release 24 hr RX by other MD [facility] Ventolin HFA 90 mcg/actuati on aerosol inhaler INHALE 1 TO 2 PUFFS BY MOUTH EVERY 4 TO 6 HOURS NEEDED FOR SHORTNESS OF BREATH, COUGH, WHEEZING Ventolin HFA 90 mcg/actuati on aerosol inhaler INHALE 1 TO 2 PUFFS BY MOUTH EVERY 4 TO 6 HOURS NEEDED FOR SHORTNESS OF BREATH, COUGH, WHEEZING No Ventolin HFA 90 mcg/actuat ion aerosol inhaler INHALE 1 TO 2 PUFFS BY MOUTH EVERY 4 TO 6 HOURS NEEDED FOR SHORTNESS OF BREATH, COUGH, WHEEZING [facility] acetaminoph en 300 mg-codeine 30 mg tablet TAKE 1 TABLET BY MOUTH EVERY 12 HOURS FOR 30 DAYS acetaminoph en 300 mg-codeine 30 mg tablet TAKE 1 TABLET BY MOUTH EVERY 12 HOURS FOR 30 DAYS No acetaminop hen 300 mg-codeine 30 mg tablet TAKE 1 TABLET BY MOUTH EVERY 12 HOURS FOR 30 DAYS [facility] acetaminoph en 300 mg-codeine 60 mg tablet TAKE 1 TABLET BY MOUTH EVERY 6 HOURS NEEDED FOR 15 DAYS acetaminoph en 300 mg-codeine 60 mg tablet TAKE 1 TABLET BY MOUTH EVERY 6 HOURS NEEDED FOR 15 DAYS No acetaminop hen 300 mg-codeine 60 mg tablet TAKE 1 TABLET BY MOUTH EVERY 6 HOURS NEEDED FOR 15 DAYS [facility] albuterol sulfate 2.5 mg/3 mL (0.083 %) solution for nebulizatio n USE 1 VIAL IN NEBULIZER EVERY 6 HOURS NEEDED FOR SHORTNESS OF BREATH AND FOR COUGH albuterol sulfate 2.5 mg/3 mL (0.083 %) solution for nebulizatio n USE 1 VIAL IN NEBULIZER EVERY 6 HOURS NEEDED FOR SHORTNESS OF BREATH AND FOR COUGH No albuterol sulfate 2.5 mg/3 mL (0.083 %) solution for nebulizati on USE 1 VIAL IN NEBULIZER EVERY 6 HOURS NEEDED FOR SHORTNESS OF BREATH AND FOR COUGH [facility] amitriptyli ne 150 mg tablet amitriptyli ne 150 mg tablet No amitriptyl ine 150 mg tablet [facility] amlodipine 5 mg tablet amlodipine 5 mg tablet No amlodipine 5 mg tablet [facility] amoxicillin 500 mg capsule TAKE 1 CAPSULE BY MOUTH THREE TIMES DAILY amoxicillin 500 mg capsule TAKE 1 CAPSULE BY MOUTH THREE TIMES DAILY No amoxicilli n 500 mg capsule TAKE 1 CAPSULE BY MOUTH THREE TIMES DAILY [facility] amoxicillin 875 mg tablet TAKE 1 TABLET BY MOUTH TWICE DAILY amoxicillin 875 mg tablet TAKE 1 TABLET BY MOUTH TWICE DAILY No amoxicilli n 875 mg tablet TAKE 1 TABLET BY MOUTH TWICE DAILY [facility] atorvastati n 40 mg tablet TAKE 1 TABLET BY MOUTH AT BEDTIME atorvastati n 40 mg tablet TAKE 1 TABLET BY MOUTH AT BEDTIME No atorvastat in 40 mg tablet TAKE 1 TABLET BY MOUTH AT BEDTIME [facility] azithromyci n 250 mg tablet TAKE 2 TABLETS BY MOUTH ON DAY 1, AND THEN TAKE 1 TABLET BY MOUTH ONCE A DAY ON DAY 2 THROUGH DAY 5 azithromyci n 250 mg tablet TAKE 2 TABLETS BY MOUTH ON DAY 1, AND THEN TAKE 1 TABLET BY MOUTH ONCE A DAY ON DAY 2 THROUGH DAY 5 No azithromyc in 250 mg tablet TAKE 2 TABLETS BY MOUTH ON DAY 1, AND THEN TAKE 1 TABLET BY MOUTH ONCE A DAY ON DAY 2 THROUGH DAY 5 [facility] benzonatate 200 mg capsule TAKE 1 CAPSULE BY MOUTH THREE TIMES DAILY NEEDED FOR COUGH benzonatate 200 mg capsule TAKE 1 CAPSULE BY MOUTH THREE TIMES DAILY NEEDED FOR COUGH No benzonatat e 200 mg capsule TAKE 1 CAPSULE BY MOUTH THREE TIMES DAILY NEEDED FOR COUGH [facility] clindamycin HCl 300 mg capsule TAKE 1 CAPSULE BY MOUTH THREE TIMES DAILY clindamycin HCl 300 mg capsule TAKE 1 CAPSULE BY MOUTH THREE TIMES DAILY No clindamyci n HCl 300 mg capsule TAKE 1 CAPSULE BY MOUTH THREE TIMES DAILY [facility] dexamethaso ne 4 mg tablet TAKE 1 TABLET BY MOUTH ONCE DAILY dexamethaso ne 4 mg tablet TAKE 1 TABLET BY MOUTH ONCE DAILY No dexamethas one 4 mg tablet TAKE 1 TABLET BY MOUTH ONCE DAILY [facility] diclofenac 1 % topical gel APPLY TOPICALLY TWICE DAILY diclofenac 1 % topical gel APPLY TOPICALLY TWICE DAILY No diclofenac 1 % topical gel APPLY TOPICALLY TWICE DAILY [facility] ergocalcife rol (vitamin D2) 1,250 mcg (50,000 unit) capsule TAKE 1 CAPSULE BY MOUTH ONCE A WEEK ergocalcife rol (vitamin D2) 1,250 mcg (50,000 unit) capsule TAKE 1 CAPSULE BY MOUTH ONCE A WEEK No ergocalcif carlitos (vitamin D2) 1,250 mcg (50,000 unit) capsule TAKE 1 CAPSULE BY MOUTH ONCE A WEEK [facility] etodolac 300 mg capsule TAKE 1 CAPSULE BY MOUTH TWICE DAILY WITH MEALS etodolac 300 mg capsule TAKE 1 CAPSULE BY MOUTH TWICE DAILY WITH MEALS No etodolac 300 mg capsule TAKE 1 CAPSULE BY MOUTH TWICE DAILY WITH MEALS [facility] gabapentin 300 mg capsule TAKE 1 CAPSULE BY MOUTH THREE TIMES DAILY FOR 30 DAYS gabapentin 300 mg capsule TAKE 1 CAPSULE BY MOUTH THREE TIMES DAILY FOR 30 DAYS No gabapentin 300 mg capsule TAKE 1 CAPSULE BY MOUTH THREE TIMES DAILY FOR 30 DAYS [facility] hydrochloro thiazide 25 mg tablet TAKE 1 TABLET BY MOUTH ONCE DAILY hydrochloro thiazide 25 mg tablet TAKE 1 TABLET BY MOUTH ONCE DAILY No hydrochlor othiazide 25 mg tablet TAKE 1 TABLET BY MOUTH ONCE DAILY [facility] InnoSp[employer] Essence device USE DIRECTED Inno[employer]ence device USE DIRECTED No InnoSpire Essence device USE DIRECTED [facility] lisinopril 40 mg tablet RX by other lisinopril 40 mg tablet RX by other MD No lisinopril 40 mg tablet RX by other [facility] methocarbam ol 750 mg tablet methocarbam ol 750 mg tablet No methocarba mol 750 mg tablet [facility] methylpredn isolone 4 mg tablets in a dose pack TAKE BY MOUTH DIRECTED ON INSIDE OF PACKAGE methylpredn isolone 4 mg tablets in a dose pack TAKE BY MOUTH DIRECTED ON INSIDE OF PACKAGE No methylpred nisolone 4 mg tablets in a dose pack TAKE BY MOUTH DIRECTED ON INSIDE OF PACKAGE [facility] metoprolol succinate ER 25 mg tablet,exte nded release 24 hr TAKE 1 TABLET BY MOUTH EVERY DAY metoprolol succinate ER 25 mg tablet,exte nded release 24 hr TAKE 1 TABLET BY MOUTH EVERY DAY No metoprolol succinate ER 25 mg tablet,ext ended release 24 hr TAKE 1 TABLET BY MOUTH EVERY DAY [facility] montelukast 10 mg tablet TAKE 1 TABLET BY MOUTH ONCE DAILY montelukast 10 mg tablet TAKE 1 TABLET BY MOUTH ONCE DAILY No montelukas t 10 mg tablet TAKE 1 TABLET BY MOUTH ONCE DAILY [facility] mupirocin 2 % topical ointment APPLY TO RIGHT KNEE PRE-OPERATI ON ONCE DAILY mupirocin 2 % topical ointment APPLY TO RIGHT KNEE PRE-OPERATI ON ONCE DAILY No mupirocin 2 % topical ointment APPLY TO RIGHT KNEE PRE-OPERAT ION ONCE DAILY [facility] ondansetron HCl 4 mg tablet TAKE 1 TABLET BY MOUTH EVERY 8 HOURS ondansetron HCl 4 mg tablet TAKE 1 TABLET BY MOUTH EVERY 8 HOURS No ondansetro n HCl 4 mg tablet TAKE 1 TABLET BY MOUTH EVERY 8 HOURS [facility] oxycodone-a cetaminophe n 10 mg-325 mg tablet oxycodone-a cetaminophe n 10 mg-325 mg tablet No oxycodone- acetaminop hen 10 mg-325 mg tablet [facility] pantoprazol e 40 mg tablet,mario yed release TAKE 1 TABLET BY MOUTH EVERY DAY pantoprazol e 40 mg tablet,mario yed release TAKE 1 TABLET BY MOUTH EVERY DAY No pantoprazo le 40 mg tablet,del ayed release TAKE 1 TABLET BY MOUTH EVERY DAY [facility] prednisone 20 mg tablet TAKE 2 TABLET BY MOUTH ONCE DAILY FOR 3 DAYS, THEN TAKE 1 TABLET ONCE DAILY FOR 2 DAYS prednisone 20 mg tablet TAKE 2 TABLET BY MOUTH ONCE DAILY FOR 3 DAYS, THEN TAKE 1 TABLET ONCE DAILY FOR 2 DAYS No prednisone 20 mg tablet TAKE 2 TABLET BY MOUTH ONCE DAILY FOR 3 DAYS, THEN TAKE 1 TABLET ONCE DAILY FOR 2 DAYS [facility] promethazin e-DM 6.25 mg-15 mg/5 mL oral syrup TAKE 10 ML BY MOUTH EVERY 6 TO 8 HOURS NEEDED FOR COUGH promethazin e-DM 6.25 mg-15 mg/5 mL oral syrup TAKE 10 ML BY MOUTH EVERY 6 TO 8 HOURS NEEDED FOR COUGH No promethazi ne-DM 6.25 mg-15 mg/5 mL oral syrup TAKE 10 ML BY MOUTH EVERY 6 TO 8 HOURS NEEDED FOR COUGH [facility] sildenafil 100 mg tablet TAKE 1 TABLET BY MOUTH ONCE DAILY 30 MINUTES PRIOR TO SEXUAL ACTIVITY sildenafil 100 mg tablet TAKE 1 TABLET BY MOUTH ONCE DAILY 30 MINUTES PRIOR TO SEXUAL ACTIVITY No sildenafil 100 mg tablet TAKE 1 TABLET BY MOUTH ONCE DAILY 30 MINUTES PRIOR TO SEXUAL ACTIVITY [facility] Sudogest 30 mg tablet TAKE 1 TABLET BY MOUTH EVERY 4 TO 6 HOURS NEEDED FOR CONGESTION Sudogest 30 mg tablet TAKE 1 TABLET BY MOUTH EVERY 4 TO 6 HOURS NEEDED FOR CONGESTION No Sudogest 30 mg tablet TAKE 1 TABLET BY MOUTH EVERY 4 TO 6 HOURS NEEDED FOR CONGESTION [facility] sulfamethox azole 800 mg-trimetho prim 160 mg tablet TAKE 1 TABLET BY MOUTH TWICE DAILY sulfamethox azole 800 mg-trimetho prim 160 mg tablet TAKE 1 TABLET BY MOUTH TWICE DAILY No sulfametho xazole 800 mg-trimeth oprim 160 mg tablet TAKE 1 TABLET BY MOUTH TWICE DAILY [facility] tamsulosin 0.4 mg capsule TAKE 1 CAPSULE BY MOUTH ONCE DAILY tamsulosin 0.4 mg capsule TAKE 1 CAPSULE BY MOUTH ONCE DAILY No tamsulosin 0.4 mg capsule TAKE 1 CAPSULE BY MOUTH ONCE DAILY [facility] tramadol 50 mg tablet TAKE 1 TABLET BY MOUTH TWICE A DAY NEEDED FOR 30 DAYS tramadol 50 mg tablet TAKE 1 TABLET BY MOUTH TWICE A DAY NEEDED FOR 30 DAYS No tramadol 50 mg tablet TAKE 1 TABLET BY MOUTH TWICE A DAY NEEDED FOR 30 DAYS [facility] vardenafil 20 mg tablet TAKE ONE TABLET BY MOUTH DIRECTED NEEDED; START: ONE-HALF TABLET DOSE; MAX OF 20MG/DOSE PER 24 HOURS: TAKE ONE HOUR BEFORE SEXUAL ACTIVITY vardenafil 20 mg tablet TAKE ONE TABLET BY MOUTH DIRECTED NEEDED; START: ONE-HALF TABLET DOSE; MAX OF 20MG/DOSE PER 24 HOURS: TAKE ONE HOUR BEFORE SEXUAL ACTIVITY No vardenafil 20 mg tablet TAKE ONE TABLET BY MOUTH DIRECTED NEEDED; START: ONE-HALF TABLET DOSE; MAX OF 20MG/DOSE PER 24 HOURS: TAKE ONE HOUR BEFORE SEXUAL ACTIVITY [facility] venlafaxine ER 75 mg capsule,ext ended release 24 hr RX by other venlafaxine ER 75 mg capsule,ext ended release 24 hr RX by other No venlafaxin e ER 75 mg capsule,ex tended release 24 hr RX by other MD [facility] Ventolin HFA 90 mcg/actuati on aerosol inhaler INHALE 1 TO 2 PUFFS BY MOUTH EVERY 4 TO 6 HOURS NEEDED FOR SHORTNESS OF BREATH, COUGH, WHEEZING Ventolin HFA 90 mcg/actuati on aerosol inhaler INHALE 1 TO 2 PUFFS BY MOUTH EVERY 4 TO 6 HOURS NEEDED FOR SHORTNESS OF BREATH, COUGH, WHEEZING No Ventolin HFA 90 mcg/actuat ion aerosol inhaler INHALE 1 TO 2 PUFFS BY MOUTH EVERY 4 TO 6 HOURS NEEDED FOR SHORTNESS OF BREATH, COUGH, WHEEZING [facility] acetaminoph en 300 mg-codeine 30 mg tablet acetaminoph en 300 mg-codeine 30 mg tablet No acetaminop hen 300 mg-codeine 30 mg tablet [facility] acetaminoph en 300 mg-codeine 30 mg tablet TAKE 1 TABLET BY MOUTH EVERY 12 HOURS acetaminoph en 300 mg-codeine 30 mg tablet TAKE 1 TABLET BY MOUTH EVERY 12 HOURS No acetaminop hen 300 mg-codeine 30 mg tablet TAKE 1 TABLET BY MOUTH EVERY 12 HOURS [facility] acetaminoph en 300 mg-codeine 60 mg tablet TAKE 1 TABLET BY MOUTH EVERY 6 HOURS NEEDED FOR 15 DAYS acetaminoph en 300 mg-codeine 60 mg tablet TAKE 1 TABLET BY MOUTH EVERY 6 HOURS NEEDED FOR 15 DAYS No acetaminop hen 300 mg-codeine 60 mg tablet TAKE 1 TABLET BY MOUTH EVERY 6 HOURS NEEDED FOR 15 DAYS [facility] albuterol sulfate 2.5 mg/3 mL (0.083 %) solution for nebulizatio n USE 1 VIAL IN NEBULIZER EVERY 6 HOURS NEEDED FOR SHORTNESS OF BREATH AND FOR COUGH albuterol sulfate 2.5 mg/3 mL (0.083 %) solution for nebulizatio n USE 1 VIAL IN NEBULIZER EVERY 6 HOURS NEEDED FOR SHORTNESS OF BREATH AND FOR COUGH No albuterol sulfate 2.5 mg/3 mL (0.083 %) solution for nebulizati on USE 1 VIAL IN NEBULIZER EVERY 6 HOURS NEEDED FOR SHORTNESS OF BREATH AND FOR COUGH [facility] amitriptyli ne 150 mg tablet amitriptyli ne 150 mg tablet No amitriptyl ine 150 mg tablet [facility] amlodipine 5 mg tablet amlodipine 5 mg tablet No amlodipine 5 mg tablet [facility] amoxicillin 500 mg capsule TAKE 1 CAPSULE BY MOUTH THREE TIMES DAILY amoxicillin 500 mg capsule TAKE 1 CAPSULE BY MOUTH THREE TIMES DAILY No amoxicilli n 500 mg capsule TAKE 1 CAPSULE BY MOUTH THREE TIMES DAILY [facility] amoxicillin 875 mg tablet TAKE 1 TABLET BY MOUTH TWICE DAILY amoxicillin 875 mg tablet TAKE 1 TABLET BY MOUTH TWICE DAILY No amoxicilli n 875 mg tablet TAKE 1 TABLET BY MOUTH TWICE DAILY [facility] atorvastati n 40 mg tablet TAKE 1 TABLET BY MOUTH AT BEDTIME atorvastati n 40 mg tablet TAKE 1 TABLET BY MOUTH AT BEDTIME No atorvastat in 40 mg tablet TAKE 1 TABLET BY MOUTH AT BEDTIME [facility] azithromyci n 250 mg tablet TAKE 2 TABLETS BY MOUTH ON DAY 1, AND THEN TAKE 1 TABLET BY MOUTH ONCE A DAY ON DAY 2 THROUGH DAY 5 azithromyci n 250 mg tablet TAKE 2 TABLETS BY MOUTH ON DAY 1, AND THEN TAKE 1 TABLET BY MOUTH ONCE A DAY ON DAY 2 THROUGH DAY 5 No azithromyc in 250 mg tablet TAKE 2 TABLETS BY MOUTH ON DAY 1, AND THEN TAKE 1 TABLET BY MOUTH ONCE A DAY ON DAY 2 THROUGH DAY 5 [facility] amitriptyli ne 150 mg tablet amitriptyli ne 150 mg tablet No amitriptyl ine 150 mg tablet [facility] benzonatate 200 mg capsule TAKE 1 CAPSULE BY MOUTH THREE TIMES DAILY NEEDED FOR COUGH benzonatate 200 mg capsule TAKE 1 CAPSULE BY MOUTH THREE TIMES DAILY NEEDED FOR COUGH No benzonatat e 200 mg capsule TAKE 1 CAPSULE BY MOUTH THREE TIMES DAILY NEEDED FOR COUGH [facility] clindamycin HCl 300 mg capsule TAKE 1 CAPSULE BY MOUTH THREE TIMES DAILY clindamycin HCl 300 mg capsule TAKE 1 CAPSULE BY MOUTH THREE TIMES DAILY No clindamyci n HCl 300 mg capsule TAKE 1 CAPSULE BY MOUTH THREE TIMES DAILY [facility] dexamethaso ne 4 mg tablet TAKE 1 TABLET BY MOUTH ONCE DAILY dexamethaso ne 4 mg tablet TAKE 1 TABLET BY MOUTH ONCE DAILY No dexamethas one 4 mg tablet TAKE 1 TABLET BY MOUTH ONCE DAILY [facility] diclofenac 1 % topical gel APPLY TOPICALLY TWICE DAILY diclofenac 1 % topical gel APPLY TOPICALLY TWICE DAILY No diclofenac 1 % topical gel APPLY TOPICALLY TWICE DAILY [facility] ergocalcife rol (vitamin D2) 1,250 mcg (50,000 unit) capsule TAKE 1 CAPSULE BY MOUTH ONCE A WEEK ergocalcife rol (vitamin D2) 1,250 mcg (50,000 unit) capsule TAKE 1 CAPSULE BY MOUTH ONCE A WEEK No ergocalcif carlitos (vitamin D2) 1,250 mcg (50,000 unit) capsule TAKE 1 CAPSULE BY MOUTH ONCE A WEEK [facility] etodolac 300 mg capsule Take 1 capsule twice a day by oral route with meals for 30 days. etodolac 300 mg capsule Take 1 capsule twice a day by oral route with meals for 30 days. No 1capsul e(s) BID etodolac 300 mg capsule Take 1 capsule twice a day by oral route with meals for 30 days. [facility] gabapentin 300 mg capsule TAKE 1 CAPSULE BY MOUTH THREE TIMES DAILY FOR 30 DAYS gabapentin 300 mg capsule TAKE 1 CAPSULE BY MOUTH THREE TIMES DAILY FOR 30 DAYS No gabapentin 300 mg capsule TAKE 1 CAPSULE BY MOUTH THREE TIMES DAILY FOR 30 DAYS [facility] hydrochloro thiazide 25 mg tablet TAKE 1 TABLET BY MOUTH ONCE DAILY hydrochloro thiazide 25 mg tablet TAKE 1 TABLET BY MOUTH ONCE DAILY No hydrochlor othiazide 25 mg tablet TAKE 1 TABLET BY MOUTH ONCE DAILY [facility] [employer] device USE DIRECTED [employer] device USE DIRECTED No [employer] device USE DIRECTED [facility] amlodipine 5 mg tablet amlodipine 5 mg tablet No amlodipine 5 mg tablet [facility] lisinopril 40 mg tablet RX by other lisinopril 40 mg tablet RX by other MD No lisinopril 40 mg tablet RX by other MD [facility] Medrol (Robin) 4 mg tablets in a dose pack Take 1 tablet by oral route as directed. Medrol (Robin) 4 mg tablets in a dose pack Take 1 tablet by oral route as directed. No 1 Medrol (Robin) 4 mg tablets in a dose pack Take 1 tablet by oral route as directed. [facility] methocarbam ol 750 mg tablet methocarbam ol 750 mg tablet No methocarba mol 750 mg tablet [facility] metoprolol succinate ER 25 mg tablet,exte nded release 24 hr TAKE 1 TABLET BY MOUTH EVERY DAY metoprolol succinate ER 25 mg tablet,exte nded release 24 hr TAKE 1 TABLET BY MOUTH EVERY DAY No metoprolol succinate ER 25 mg tablet,ext ended release 24 hr TAKE 1 TABLET BY MOUTH EVERY DAY [facility] montelukast 10 mg tablet TAKE 1 TABLET BY MOUTH ONCE DAILY montelukast 10 mg tablet TAKE 1 TABLET BY MOUTH ONCE DAILY No montelukas t 10 mg tablet TAKE 1 TABLET BY MOUTH ONCE DAILY [facility] mupirocin 2 % topical ointment APPLY TO RIGHT KNEE PRE-OPERATI ON ONCE DAILY mupirocin 2 % topical ointment APPLY TO RIGHT KNEE PRE-OPERATI ON ONCE DAILY No mupirocin 2 % topical ointment APPLY TO RIGHT KNEE PRE-OPERAT ION ONCE DAILY [facility] ondansetron HCl 4 mg tablet TAKE 1 TABLET BY MOUTH EVERY 8 HOURS ondansetron HCl 4 mg tablet TAKE 1 TABLET BY MOUTH EVERY 8 HOURS No ondansetro n HCl 4 mg tablet TAKE 1 TABLET BY MOUTH EVERY 8 HOURS [facility] amoxicillin 875 mg tablet TAKE 1 TABLET BY MOUTH TWICE DAILY amoxicillin 875 mg tablet TAKE 1 TABLET BY MOUTH TWICE DAILY No amoxicilli n 875 mg tablet TAKE 1 TABLET BY MOUTH TWICE DAILY [facility] oxycodone-a cetaminophe n 10 mg-325 mg tablet oxycodone-a cetaminophe n 10 mg-325 mg tablet No oxycodone- acetaminop hen 10 mg-325 mg tablet [facility] pantoprazol e 40 mg tablet,mario yed release TAKE 1 TABLET BY MOUTH EVERY DAY pantoprazol e 40 mg tablet,mario yed release TAKE 1 TABLET BY MOUTH EVERY DAY No pantoprazo le 40 mg tablet,del ayed release TAKE 1 TABLET BY MOUTH EVERY DAY [facility] prednisone 20 mg tablet TAKE 2 TABLET BY MOUTH ONCE DAILY FOR 3 DAYS, THEN TAKE 1 TABLET ONCE DAILY FOR 2 DAYS prednisone 20 mg tablet TAKE 2 TABLET BY MOUTH ONCE DAILY FOR 3 DAYS, THEN TAKE 1 TABLET ONCE DAILY FOR 2 DAYS No prednisone 20 mg tablet TAKE 2 TABLET BY MOUTH ONCE DAILY FOR 3 DAYS, THEN TAKE 1 TABLET ONCE DAILY FOR 2 DAYS [facility] promethazin e-DM 6.25 mg-15 mg/5 mL oral syrup TAKE 10 ML BY MOUTH EVERY 6 TO 8 HOURS NEEDED FOR COUGH promethazin e-DM 6.25 mg-15 mg/5 mL oral syrup TAKE 10 ML BY MOUTH EVERY 6 TO 8 HOURS NEEDED FOR COUGH No promethazi ne-DM 6.25 mg-15 mg/5 mL oral syrup TAKE 10 ML BY MOUTH EVERY 6 TO 8 HOURS NEEDED FOR COUGH [facility] sildenafil 100 mg tablet TAKE ONE TABLET BY MOUTH DIRECTED 30 MINUTES TO 4 HOURS BEFORE SEXUAL ACTIVITY sildenafil 100 mg tablet TAKE ONE TABLET BY MOUTH DIRECTED 30 MINUTES TO 4 HOURS BEFORE SEXUAL ACTIVITY No sildenafil 100 mg tablet TAKE ONE TABLET BY MOUTH DIRECTED 30 MINUTES TO 4 HOURS BEFORE SEXUAL ACTIVITY [facility] Sudogest 30 mg tablet TAKE 1 TABLET BY MOUTH EVERY 4 TO 6 HOURS NEEDED FOR CONGESTION Sudogest 30 mg tablet TAKE 1 TABLET BY MOUTH EVERY 4 TO 6 HOURS NEEDED FOR CONGESTION No Sudogest 30 mg tablet TAKE 1 TABLET BY MOUTH EVERY 4 TO 6 HOURS NEEDED FOR CONGESTION [facility] sulfamethox azole 800 mg-trimetho prim 160 mg tablet TAKE 1 TABLET BY MOUTH TWICE DAILY sulfamethox azole 800 mg-trimetho prim 160 mg tablet TAKE 1 TABLET BY MOUTH TWICE DAILY No sulfametho xazole 800 mg-trimeth oprim 160 mg tablet TAKE 1 TABLET BY MOUTH TWICE DAILY [facility] tamsulosin 0.4 mg capsule TAKE 1 CAPSULE BY MOUTH ONCE DAILY tamsulosin 0.4 mg capsule TAKE 1 CAPSULE BY MOUTH ONCE DAILY No tamsulosin 0.4 mg capsule TAKE 1 CAPSULE BY MOUTH ONCE DAILY [facility] tramadol 50 mg tablet TAKE 1 TABLET BY MOUTH TWICE A DAY NEEDED FOR 30 DAYS tramadol 50 mg tablet TAKE 1 TABLET BY MOUTH TWICE A DAY NEEDED FOR 30 DAYS No tramadol 50 mg tablet TAKE 1 TABLET BY MOUTH TWICE A DAY NEEDED FOR 30 DAYS [facility] atorvastati n 40 mg tablet TAKE 1 TABLET BY MOUTH AT BEDTIME atorvastati n 40 mg tablet TAKE 1 TABLET BY MOUTH AT BEDTIME No atorvastat in 40 mg tablet TAKE 1 TABLET BY MOUTH AT BEDTIME [facility] vardenafil 20 mg tablet TAKE ONE TABLET BY MOUTH DIRECTED NEEDED; START: ONE-HALF TABLET DOSE; MAX OF 20MG/DOSE PER 24 HOURS: TAKE ONE HOUR BEFORE SEXUAL ACTIVITY vardenafil 20 mg tablet TAKE ONE TABLET BY MOUTH DIRECTED NEEDED; START: ONE-HALF TABLET DOSE; MAX OF 20MG/DOSE PER 24 HOURS: TAKE ONE HOUR BEFORE SEXUAL ACTIVITY No vardenafil 20 mg tablet TAKE ONE TABLET BY MOUTH DIRECTED NEEDED; START: ONE-HALF TABLET DOSE; MAX OF 20MG/DOSE PER 24 HOURS: TAKE ONE HOUR BEFORE SEXUAL ACTIVITY [facility] venlafaxine ER 75 mg capsule,ext ended release 24 hr RX by other venlafaxine ER 75 mg capsule,ext ended release 24 hr RX by other No venlafaxin e ER 75 mg capsule,ex tended release 24 hr RX by other [facility] Ventolin HFA 90 mcg/actuati on aerosol inhaler INHALE 1 TO 2 PUFFS BY MOUTH EVERY 4 TO 6 HOURS NEEDED FOR SHORTNESS OF BREATH, COUGH, WHEEZING Ventolin HFA 90 mcg/actuati on aerosol inhaler INHALE 1 TO 2 PUFFS BY MOUTH EVERY 4 TO 6 HOURS NEEDED FOR SHORTNESS OF BREATH, COUGH, WHEEZING No Ventolin HFA 90 mcg/actuat ion aerosol inhaler INHALE 1 TO 2 PUFFS BY MOUTH EVERY 4 TO 6 HOURS NEEDED FOR SHORTNESS OF BREATH, COUGH, WHEEZING [facility] benzonatate 200 mg capsule TAKE 1 CAPSULE BY MOUTH THREE TIMES DAILY NEEDED FOR COUGH benzonatate 200 mg capsule TAKE 1 CAPSULE BY MOUTH THREE TIMES DAILY NEEDED FOR COUGH No benzonatat e 200 mg capsule TAKE 1 CAPSULE BY MOUTH THREE TIMES DAILY NEEDED FOR COUGH [facility] celecoxib 200 mg capsule TAKE 1 CAPSULE BY MOUTH TWICE A DAY BEFORE SURGERY, THEN TAKE 1 CAPSULE THE MORNING OF SURGERY celecoxib 200 mg capsule TAKE 1 CAPSULE BY MOUTH TWICE A DAY BEFORE SURGERY, THEN TAKE 1 CAPSULE THE MORNING OF SURGERY No celecoxib 200 mg capsule TAKE 1 CAPSULE BY MOUTH TWICE A DAY BEFORE SURGERY, THEN TAKE 1 CAPSULE THE MORNING OF SURGERY [facility] dexamethaso ne 4 mg tablet TAKE 1 TABLET BY MOUTH ONCE DAILY dexamethaso ne 4 mg tablet TAKE 1 TABLET BY MOUTH ONCE DAILY No dexamethas one 4 mg tablet TAKE 1 TABLET BY MOUTH ONCE DAILY [facility] acetaminoph en 300 mg-codeine 30 mg tablet TAKE 1 TABLET BY MOUTH EVERY 12 HOURS FOR 30 DAYS acetaminoph en 300 mg-codeine 30 mg tablet TAKE 1 TABLET BY MOUTH EVERY 12 HOURS FOR 30 DAYS No acetaminop hen 300 mg-codeine 30 mg tablet TAKE 1 TABLET BY MOUTH EVERY 12 HOURS FOR 30 DAYS [facility] acetaminoph en 300 mg-codeine 60 mg tablet TAKE 1 TABLET BY MOUTH EVERY 6 HOURS NEEDED FOR 15 DAYS acetaminoph en 300 mg-codeine 60 mg tablet TAKE 1 TABLET BY MOUTH EVERY 6 HOURS NEEDED FOR 15 DAYS No acetaminop hen 300 mg-codeine 60 mg tablet TAKE 1 TABLET BY MOUTH EVERY 6 HOURS NEEDED FOR 15 DAYS [facility] albuterol sulfate 2.5 mg/3 mL (0.083 %) solution for nebulizatio n USE 1 VIAL IN NEBULIZER EVERY 6 HOURS NEEDED FOR SHORTNESS OF BREATH AND FOR COUGH albuterol sulfate 2.5 mg/3 mL (0.083 %) solution for nebulizatio n USE 1 VIAL IN NEBULIZER EVERY 6 HOURS NEEDED FOR SHORTNESS OF BREATH AND FOR COUGH No albuterol sulfate 2.5 mg/3 mL (0.083 %) solution for nebulizati on USE 1 VIAL IN NEBULIZER EVERY 6 HOURS NEEDED FOR SHORTNESS OF BREATH AND FOR COUGH [facility] amitriptyli ne 150 mg tablet amitriptyli ne 150 mg tablet No amitriptyl ine 150 mg tablet [facility] diclofenac 1 % topical gel APPLY TOPICALLY TWICE DAILY diclofenac 1 % topical gel APPLY TOPICALLY TWICE DAILY No diclofenac 1 % topical gel APPLY TOPICALLY TWICE DAILY [facility] amlodipine 5 mg tablet amlodipine 5 mg tablet No amlodipine 5 mg tablet [facility] amoxicillin 500 mg capsule TAKE 1 CAPSULE BY MOUTH THREE TIMES DAILY amoxicillin 500 mg capsule TAKE 1 CAPSULE BY MOUTH THREE TIMES DAILY No amoxicilli n 500 mg capsule TAKE 1 CAPSULE BY MOUTH THREE TIMES DAILY [facility] amoxicillin 875 mg tablet TAKE 1 TABLET BY MOUTH TWICE DAILY amoxicillin 875 mg tablet TAKE 1 TABLET BY MOUTH TWICE DAILY No amoxicilli n 875 mg tablet TAKE 1 TABLET BY MOUTH TWICE DAILY [facility] amoxicillin 875 mg-potassiu m clavulanate 125 mg tablet TAKE 1 TABLET BY MOUTH TWICE DAILY amoxicillin 875 mg-potassiu m clavulanate 125 mg tablet TAKE 1 TABLET BY MOUTH TWICE DAILY No amoxicilli n 875 mg-potassi um clavulanat e 125 mg tablet TAKE 1 TABLET BY MOUTH TWICE DAILY [facility] atorvastati n 40 mg tablet TAKE 1 TABLET BY MOUTH AT BEDTIME atorvastati n 40 mg tablet TAKE 1 TABLET BY MOUTH AT BEDTIME No atorvastat in 40 mg tablet TAKE 1 TABLET BY MOUTH AT BEDTIME [facility] azithromyci n 250 mg tablet TAKE 2 TABLETS BY MOUTH ON DAY 1, AND THEN TAKE 1 TABLET BY MOUTH ONCE A DAY ON DAY 2 THROUGH DAY 5 azithromyci n 250 mg tablet TAKE 2 TABLETS BY MOUTH ON DAY 1, AND THEN TAKE 1 TABLET BY MOUTH ONCE A DAY ON DAY 2 THROUGH DAY 5 No azithromyc in 250 mg tablet TAKE 2 TABLETS BY MOUTH ON DAY 1, AND THEN TAKE 1 TABLET BY MOUTH ONCE A DAY ON DAY 2 THROUGH DAY 5 [facility] benzonatate 200 mg capsule TAKE 1 CAPSULE BY MOUTH THREE TIMES DAILY NEEDED FOR COUGH benzonatate 200 mg capsule TAKE 1 CAPSULE BY MOUTH THREE TIMES DAILY NEEDED FOR COUGH No benzonatat e 200 mg capsule TAKE 1 CAPSULE BY MOUTH THREE TIMES DAILY NEEDED FOR COUGH [facility] celecoxib 200 mg capsule PLEASE SEE ATTACHED FOR DETAILED DIRECTIONS celecoxib 200 mg capsule PLEASE SEE ATTACHED FOR DETAILED DIRECTIONS No celecoxib 200 mg capsule PLEASE SEE ATTACHED FOR DETAILED DIRECTIONS [facility] clindamycin HCl 300 mg capsule TAKE 1 CAPSULE BY MOUTH THREE TIMES DAILY clindamycin HCl 300 mg capsule TAKE 1 CAPSULE BY MOUTH THREE TIMES DAILY No clindamyci n HCl 300 mg capsule TAKE 1 CAPSULE BY MOUTH THREE TIMES DAILY [facility] dexamethaso ne 4 mg tablet TAKE 1 TABLET BY MOUTH ONCE DAILY dexamethaso ne 4 mg tablet TAKE 1 TABLET BY MOUTH ONCE DAILY No dexamethas one 4 mg tablet TAKE 1 TABLET BY MOUTH ONCE DAILY [facility] gabapentin 300 mg capsule TAKE 1 CAPSULE BY MOUTH EVERY DAY AT BEDTIME FOR 90 DAYS gabapentin 300 mg capsule TAKE 1 CAPSULE BY MOUTH EVERY DAY AT BEDTIME FOR 90 DAYS No gabapentin 300 mg capsule TAKE 1 CAPSULE BY MOUTH EVERY DAY AT BEDTIME FOR 90 DAYS [facility] diclofenac 1 % topical gel APPLY TOPICALLY TWICE DAILY diclofenac 1 % topical gel APPLY TOPICALLY TWICE DAILY No diclofenac 1 % topical gel APPLY TOPICALLY TWICE DAILY [facility] ergocalcife rol (vitamin D2) 1,250 mcg (50,000 unit) capsule TAKE 1 CAPSULE BY MOUTH ONCE A WEEK ergocalcife rol (vitamin D2) 1,250 mcg (50,000 unit) capsule TAKE 1 CAPSULE BY MOUTH ONCE A WEEK No ergocalcif carlitos (vitamin D2) 1,250 mcg (50,000 unit) capsule TAKE 1 CAPSULE BY MOUTH ONCE A WEEK [facility] etodolac 300 mg capsule TAKE 1 CAPSULE BY MOUTH TWICE DAILY WITH MEALS etodolac 300 mg capsule TAKE 1 CAPSULE BY MOUTH TWICE DAILY WITH MEALS No etodolac 300 mg capsule TAKE 1 CAPSULE BY MOUTH TWICE DAILY WITH MEALS [facility] famotidine 40 mg tablet TAKE 1 TABLET BY MOUTH EVERY DAY AT BEDTIME (USE LATER TAPER FIRST) famotidine 40 mg tablet TAKE 1 TABLET BY MOUTH EVERY DAY AT BEDTIME (USE LATER TAPER FIRST) No famotidine 40 mg tablet TAKE 1 TABLET BY MOUTH EVERY DAY AT BEDTIME (USE LATER TAPER FIRST) [facility] gabapentin 300 mg capsule TAKE 1 CAPSULE BY MOUTH THREE TIMES DAILY gabapentin 300 mg capsule TAKE 1 CAPSULE BY MOUTH THREE TIMES DAILY No gabapentin 300 mg capsule TAKE 1 CAPSULE BY MOUTH THREE TIMES DAILY [facility] hydrochloro thiazide 25 mg tablet TAKE 1 TABLET BY MOUTH ONCE DAILY hydrochloro thiazide 25 mg tablet TAKE 1 TABLET BY MOUTH ONCE DAILY No hydrochlor othiazide 25 mg tablet TAKE 1 TABLET BY MOUTH ONCE DAILY [facility] [employer] device USE DIRECTED [employer] device USE DIRECTED No [employer] device USE DIRECTED [facility] ketorolac 10 mg tablet TAKE 1 TABLET BY MOUTH EVERY 6 HOURS FOR 5 DAYS ketorolac 10 mg tablet TAKE 1 TABLET BY MOUTH EVERY 6 HOURS FOR 5 DAYS No ketorolac 10 mg tablet TAKE 1 TABLET BY MOUTH EVERY 6 HOURS FOR 5 DAYS [facility] lisinopril 40 mg tablet RX by other lisinopril 40 mg tablet RX by other MD No lisinopril 40 mg tablet RX by other MD [facility] hydrochloro thiazide 25 mg tablet TAKE 1 TABLET BY MOUTH ONCE DAILY hydrochloro thiazide 25 mg tablet TAKE 1 TABLET BY MOUTH ONCE DAILY No hydrochlor othiazide 25 mg tablet TAKE 1 TABLET BY MOUTH ONCE [facility] losartan 25 mg tablet TAKE 1 TABLET BY MOUTH ONCE DAILY losartan 25 mg tablet TAKE 1 TABLET BY MOUTH ONCE DAILY No losartan 25 mg tablet TAKE 1 TABLET BY MOUTH ONCE DAILY [facility] methocarbam ol 750 mg tablet methocarbam ol 750 mg tablet No methocarba mol 750 mg tablet [facility] methylpredn isolone 4 mg tablets in a dose pack TAKE DIRECTED BY DIRECTIONS IN PACKET methylpredn isolone 4 mg tablets in a dose pack TAKE DIRECTED BY DIRECTIONS IN PACKET No methylpred nisolone 4 mg tablets in a dose pack TAKE DIRECTED BY DIRECTIONS IN PACKET [facility] metoprolol succinate ER 25 mg tablet,exte nded release 24 hr TAKE 1 TABLET BY MOUTH EVERY DAY metoprolol succinate ER 25 mg tablet,exte nded release 24 hr TAKE 1 TABLET BY MOUTH EVERY DAY No metoprolol succinate ER 25 mg tablet,ext ended release 24 hr TAKE 1 TABLET BY MOUTH EVERY DAY [facility] montelukast 10 mg tablet TAKE 1 TABLET BY MOUTH ONCE DAILY montelukast 10 mg tablet TAKE 1 TABLET BY MOUTH ONCE DAILY No montelukas t 10 mg tablet TAKE 1 TABLET BY MOUTH ONCE DAILY [facility] mupirocin 2 % topical ointment APPLY TO RIGHT KNEE PRE-OPERATI ON ONCE DAILY mupirocin 2 % topical ointment APPLY TO RIGHT KNEE PRE-OPERATI ON ONCE DAILY No mupirocin 2 % topical ointment APPLY TO RIGHT KNEE PRE-OPERAT ION ONCE DAILY [facility] ondansetron HCl 4 mg tablet TAKE 1 TABLET BY MOUTH EVERY 8 HOURS ondansetron HCl 4 mg tablet TAKE 1 TABLET BY MOUTH EVERY 8 HOURS No ondansetro n HCl 4 mg tablet TAKE 1 TABLET BY MOUTH EVERY 8 HOURS [facility] lisinopril 40 mg tablet RX by other lisinopril 40 mg tablet RX by other MD No lisinopril 40 mg tablet RX by other MD [facility] oxycodone-a cetaminophe n 10 mg-325 mg tablet TAKE ONE (1) TO TWO (2) TABLET(S) BY MOUTH EVERY SIX TO EIGHT HOURS NEEDED FOR POST OP PAIN MEDICATION. oxycodone-a cetaminophe n 10 mg-325 mg tablet TAKE ONE (1) TO TWO (2) TABLET(S) BY MOUTH EVERY SIX TO EIGHT HOURS NEEDED FOR POST OP PAIN MEDICATION. No oxycodone- acetaminop hen 10 mg-325 mg tablet TAKE ONE (1) TO TWO (2) TABLET(S) BY MOUTH EVERY SIX TO EIGHT HOURS NEEDED FOR POST OP PAIN MEDICATION . [facility] pantoprazol e 40 mg tablet,mario yed release TAKE 1 TABLET BY MOUTH EVERY DAY pantoprazol e 40 mg tablet,mario yed release TAKE 1 TABLET BY MOUTH EVERY DAY No pantoprazo le 40 mg tablet,del ayed release TAKE 1 TABLET BY MOUTH EVERY DAY [facility] prednisone 10 mg tablet TAKE 1 TABLET BY MOUTH ONCE DAILY prednisone 10 mg tablet TAKE 1 TABLET BY MOUTH ONCE DAILY No prednisone 10 mg tablet TAKE 1 TABLET BY MOUTH ONCE DAILY [facility] prednisone 20 mg tablet TAKE 2 TABLET BY MOUTH ONCE DAILY FOR 3 DAYS, THEN TAKE 1 TABLET ONCE DAILY FOR 2 DAYS prednisone 20 mg tablet TAKE 2 TABLET BY MOUTH ONCE DAILY FOR 3 DAYS, THEN TAKE 1 TABLET ONCE DAILY FOR 2 DAYS No prednisone 20 mg tablet TAKE 2 TABLET BY MOUTH ONCE DAILY FOR 3 DAYS, THEN TAKE 1 TABLET ONCE DAILY FOR 2 DAYS [facility] promethazin e 6.25 mg/5 mL oral syrup TAKE 5 ML BY MOUTH THREE TIMES DAILY FOR COUGH promethazin e 6.25 mg/5 mL oral syrup TAKE 5 ML BY MOUTH THREE TIMES DAILY FOR COUGH No promethazi ne 6.25 mg/5 mL oral syrup TAKE 5 ML BY MOUTH THREE TIMES DAILY FOR COUGH [facility] promethazin e-DM 6.25 mg-15 mg/5 mL oral syrup TAKE 5 ML BY MOUTH EVERY 6 HOURS FOR COUGH promethazin e-DM 6.25 mg-15 mg/5 mL oral syrup TAKE 5 ML BY MOUTH EVERY 6 HOURS FOR COUGH No promethazi ne-DM 6.25 mg-15 mg/5 mL oral syrup TAKE 5 ML BY MOUTH EVERY 6 HOURS FOR COUGH [facility] sildenafil 100 mg tablet TAKE 1 TABLET BY MOUTH DIRECTED - TAKE 30 TO 4 HOURS BEFORE SEXUAL ACTIVITY sildenafil 100 mg tablet TAKE 1 TABLET BY MOUTH DIRECTED - TAKE 30 TO 4 HOURS BEFORE SEXUAL ACTIVITY No sildenafil 100 mg tablet TAKE 1 TABLET BY MOUTH DIRECTED - TAKE 30 TO 4 HOURS BEFORE SEXUAL ACTIVITY [facility] Sudogest 30 mg tablet TAKE 1 TABLET BY MOUTH EVERY 4 TO 6 HOURS NEEDED FOR CONGESTION Sudogest 30 mg tablet TAKE 1 TABLET BY MOUTH EVERY 4 TO 6 HOURS NEEDED FOR CONGESTION No Sudogest 30 mg tablet TAKE 1 TABLET BY MOUTH EVERY 4 TO 6 HOURS NEEDED FOR CONGESTION [facility] sulfamethox azole 800 mg-trimetho prim 160 mg tablet TAKE 1 TABLET BY MOUTH TWICE DAILY sulfamethox azole 800 mg-trimetho prim 160 mg tablet TAKE 1 TABLET BY MOUTH TWICE DAILY No sulfametho xazole 800 mg-trimeth oprim 160 mg tablet TAKE 1 TABLET BY MOUTH TWICE DAILY [facility] tamsulosin 0.4 mg capsule TAKE 1 CAPSULE BY MOUTH ONCE DAILY tamsulosin 0.4 mg capsule TAKE 1 CAPSULE BY MOUTH ONCE DAILY No tamsulosin 0.4 mg capsule TAKE 1 CAPSULE BY MOUTH ONCE DAILY [facility] tramadol 50 mg tablet TAKE 1 TABLET BY MOUTH TWICE A DAY NEEDED FOR 30 DAYS tramadol 50 mg tablet TAKE 1 TABLET BY MOUTH TWICE A DAY NEEDED FOR 30 DAYS No tramadol 50 mg tablet TAKE 1 TABLET BY MOUTH TWICE A DAY NEEDED FOR 30 DAYS [facility] vardenafil 20 mg tablet TAKE ONE TABLET BY MOUTH DIRECTED NEEDED; START: ONE-HALF TABLET DOSE; MAX OF 20MG/DOSE PER 24 HOURS: TAKE ONE HOUR BEFORE SEXUAL ACTIVITY vardenafil 20 mg tablet TAKE ONE TABLET BY MOUTH DIRECTED NEEDED; START: ONE-HALF TABLET DOSE; MAX OF 20MG/DOSE PER 24 HOURS: TAKE ONE HOUR BEFORE SEXUAL ACTIVITY No vardenafil 20 mg tablet TAKE ONE TABLET BY MOUTH DIRECTED NEEDED; START: ONE-HALF TABLET DOSE; MAX OF 20MG/DOSE PER 24 HOURS: TAKE ONE HOUR BEFORE SEXUAL ACTIVITY [facility] venlafaxine ER 75 mg capsule,ext ended release 24 hr RX by other venlafaxine ER 75 mg capsule,ext ended release 24 hr RX by other MD No venlafaxin e ER 75 mg capsule,ex tended release 24 hr RX by other MD [facility] Ventolin HFA 90 mcg/actuati on aerosol inhaler INHALE 2 PUFFS BY MOUTH EVERY 4 HOURS WHILE AWAKE FOR 3-5 DAYS THEN USE NEEDED Ventolin HFA 90 mcg/actuati on aerosol inhaler INHALE 2 PUFFS BY MOUTH EVERY 4 HOURS WHILE AWAKE FOR 3-5 DAYS THEN USE NEEDED No Ventolin HFA 90 mcg/actuat ion aerosol inhaler INHALE 2 PUFFS BY MOUTH EVERY 4 HOURS WHILE AWAKE FOR 3-5 DAYS THEN USE NEEDED [facility] methocarbam ol 750 mg tablet methocarbam ol 750 mg tablet No methocarba mol 750 mg tablet [facility] methylpredn isolone 4 mg tablets in a dose pack TAKE DIRECTED methylpredn isolone 4 mg tablets in a dose pack TAKE DIRECTED No methylpred nisolone 4 mg tablets in a dose pack TAKE DIRECTED [facility] metoprolol succinate ER 25 mg tablet,exte nded release 24 hr TAKE 1 TABLET BY MOUTH EVERY DAY metoprolol succinate ER 25 mg tablet,exte nded release 24 hr TAKE 1 TABLET BY MOUTH EVERY DAY No metoprolol succinate ER 25 mg tablet,ext ended release 24 hr TAKE 1 TABLET BY MOUTH EVERY DAY [facility] montelukast 10 mg tablet TAKE 1 TABLET BY MOUTH ONCE DAILY montelukast 10 mg tablet TAKE 1 TABLET BY MOUTH ONCE DAILY No montelukas t 10 mg tablet TAKE 1 TABLET BY MOUTH ONCE DAILY [facility] mupirocin 2 % topical ointment APPLY TO RIGHT KNEE PRE-OPERATI ON ONCE DAILY mupirocin 2 % topical ointment APPLY TO RIGHT KNEE PRE-OPERATI ON ONCE DAILY No mupirocin 2 % topical ointment APPLY TO RIGHT KNEE PRE-OPERAT ION ONCE DAILY [facility] ondansetron HCl 4 mg tablet TAKE 1 TABLET BY MOUTH EVERY 8 HOURS ondansetron HCl 4 mg tablet TAKE 1 TABLET BY MOUTH EVERY 8 HOURS No ondansetro n HCl 4 mg tablet TAKE 1 TABLET BY MOUTH EVERY 8 HOURS [facility] oxycodone-a cetaminophe n 10 mg-325 mg tablet oxycodone-a cetaminophe n 10 mg-325 mg tablet No oxycodone- acetaminop hen 10 mg-325 mg tablet [facility] pantoprazol e 40 mg tablet,mario yed release TAKE 1 TABLET BY MOUTH EVERY DAY pantoprazol e 40 mg tablet,mario yed release TAKE 1 TABLET BY MOUTH EVERY DAY No pantoprazo le 40 mg tablet,del ayed release TAKE 1 TABLET BY MOUTH EVERY DAY [facility] prednisone 20 mg tablet TAKE 1 TABLET BY MOUTH ONCE DAILY prednisone 20 mg tablet TAKE 1 TABLET BY MOUTH ONCE DAILY No prednisone 20 mg tablet TAKE 1 TABLET BY MOUTH ONCE DAILY [facility] sildenafil 100 mg tablet TAKE 1 TABLET BY MOUTH ONCE DAILY 30 MINUTES PRIOR TO SEXUAL ACTIVITY sildenafil 100 mg tablet TAKE 1 TABLET BY MOUTH ONCE DAILY 30 MINUTES PRIOR TO SEXUAL ACTIVITY No sildenafil 100 mg tablet TAKE 1 TABLET BY MOUTH ONCE DAILY 30 MINUTES PRIOR TO SEXUAL ACTIVITY [facility] Sudogest 30 mg tablet TAKE 1 TABLET BY MOUTH EVERY 4 TO 6 HOURS NEEDED FOR CONGESTION Sudogest 30 mg tablet TAKE 1 TABLET BY MOUTH EVERY 4 TO 6 HOURS NEEDED FOR CONGESTION No Sudogest 30 mg tablet TAKE 1 TABLET BY MOUTH EVERY 4 TO 6 HOURS NEEDED FOR CONGESTION [facility] tamsulosin 0.4 mg capsule TAKE 1 CAPSULE BY MOUTH ONCE DAILY tamsulosin 0.4 mg capsule TAKE 1 CAPSULE BY MOUTH ONCE DAILY No tamsulosin 0.4 mg capsule TAKE 1 CAPSULE BY MOUTH ONCE DAILY [facility] tramadol 50 mg tablet TAKE 1 TABLET BY MOUTH TWICE A DAY NEEDED FOR 30 DAYS tramadol 50 mg tablet TAKE 1 TABLET BY MOUTH TWICE A DAY NEEDED FOR 30 DAYS No tramadol 50 mg tablet TAKE 1 TABLET BY MOUTH TWICE A DAY NEEDED FOR 30 DAYS [facility] venlafaxine ER 75 mg capsule,ext ended release 24 hr RX by other venlafaxine ER 75 mg capsule,ext ended release 24 hr RX by other MD No venlafaxin e ER 75 mg capsule,ex tended release 24 hr RX by other MD [facility] acetaminoph en 300 mg-codeine 30 mg tablet TAKE 1 TABLET BY MOUTH EVERY 12 HOURS FOR 30 DAYS acetaminoph en 300 mg-codeine 30 mg tablet TAKE 1 TABLET BY MOUTH EVERY 12 HOURS FOR 30 DAYS No acetaminop hen 300 mg-codeine 30 mg tablet TAKE 1 TABLET BY MOUTH EVERY 12 HOURS FOR 30 DAYS [facility] Immunizations Ordered Immunization Name Filled Immunization Name Date Status Comments Source pneumococcal polysaccharide PPV23 pneumococcal polysaccharide PPV23 2020-11-26 00:00:00 Completed [facility] influenza, seasonal, injectable influenza, seasonal, injectable 2020-11-26 00:00:00 Completed [facility] pneumococcal polysaccharide PPV23 pneumococcal polysaccharide PPV23 2020-11-26 00:00:00 Completed [facility] influenza, seasonal, injectable influenza, seasonal, injectable 2020-11-26 00:00:00 Completed [facility] pneumococcal polysaccharide PPV23 pneumococcal polysaccharide PPV23 2020-11-26 00:00:00 Completed [facility] influenza, seasonal, injectable influenza, seasonal, injectable 2020-11-26 00:00:00 Completed [facility] pneumococcal polysaccharide PPV23 pneumococcal polysaccharide PPV23 Unknown Completed [facility] influenza, seasonal, injectable influenza, seasonal, injectable Unknown Completed [facility] Vital Signs Vital Name Observation Time Observation Value Comments S ource Body Weight 2023-03-19 00:00:00 183 [lb_av] [facility] Height 2023-03-19 00:00:00 71 [in_i] [facility] BMI (Body Mass Index) 2023-03-19 00:00:00 25.5 kg/m2 [facility] Height 2022-06-12 00:00:00 71 [in_i] [facility] BMI (Body Mass Index) 2022-06-12 00:00:00 25.5 kg/m2 [facility] Body Weight 2022-06-12 00:00:00 183 [lb_av] [facility] Height 2022-05-08 00:00:00 71 [in_i] [facility] BMI (Body Mass Index) 2022-05-08 00:00:00 25.5 kg/m2 [facility] Body Weight 2022-05-08 00:00:00 183 [lb_av] [facility] Height 2022-04-05 00:00:00 71 [in_i] [facility] BMI (Body Mass Index) 2022-04-05 00:00:00 25.5 kg/m2 [facility] Body Weight 2022-04-05 00:00:00 183 [lb_av] [facility] BP Diastolic 2021-12-15 00:00:00 100 mm[Hg] [facility] Height 2021-12-15 00:00:00 71 [in_i] [facility] BMI (Body Mass Index) 2021-12-15 00:00:00 25.5 kg/m2 [facility] BP Systolic 2021-12-15 00:00:00 160 mm[Hg] [facility] Body Weight 2021-12-15 00:00:00 183 [lb_av] [facility] Height 2021-11-15 00:00:00 71 [in_i] [facility] BMI (Body Mass Index) 2021-11-15 00:00:00 24.4 kg/m2 [facility] Body Weight 2021-11-15 00:00:00 175 [lb_av] [facility] Procedures Procedure Date / Time Performed Performing Clinician Source RADEX SPI CRV MINIMUM 4 VIEWS 2021-12-15 00:00:00 [facility] electromyogram + nerve conduction study 2021-11-15 00:00:00 [facility] SPECT, cervical spine 2021-11-15 00:00:00 [facility] Colonoscopy 2020-11-26 00:00:00 [facility] Knee Replacement 2012-02-27 00:00:00 Regla [facility] Back [facility] Hand [facility] Ne[facility] Should[facility] Plan of Care Planned Activity Planned Date Details Comments Source Future Appointment 2023-04-24 11:30:00 Mary Chavis, [address] [place] [address]; [place] [address] [facility] Future Appointment 2023-04-10 13:30:00 Valerio Sanford, [address] [place] [id number] [facility] Instructions [facility] Encounters Start Date/Time End Date/Time Encounter Type Admission Type Attending [facility] Care Facility Care Department Encounter ID Source 2023-03-19 00:00:00 2023-03-19 00:00:00 Outpatient FOG_[facility]_Dario santos_VARUN AO AO [id number] [facility] 2023-03-19 00:00:00 2023-03-19 00:00:00 Mary Chavis PA: [address] [place] [address] , Ph. [phone] [facility] - [facility] [place] [id number] [facility] 2022-08-01 00:00:00 2022-08-01 00:00:00 Outpatient LES_Duarte Schultz AO AO [id number] [facility] 2022-08-01 00:00:00 2022-08-01 00:00:00 Outpatient LES_Duarte Schultz AO AO [id number] [facility] 2022-08-01 00:00:00 2022-08-01 00:00:00 Outpatient FOG_Duarte Schultz AOSM AO [id number] [facility] 2022-08-01 00:00:00 2022-08-01 00:00:00 Outpatient FOG_Duarte Schultz AOSM AO [id number] [facility] 2022-07-13 00:00:00 2022-07-13 00:00:00 Outpatient FOG_Duarte Schultz AOSM AO [id number] [facility] 2022-07-12 00:00:00 2022-07-12 00:00:00 Outpatient FOG_Duarte Schultz AOSM AOSM [id number] [facility] 2022-06-12 00:00:00 2022-06-12 00:00:00 Outpatient FOG_Duarte Schultz AOSM AO [id number] [facility] 2022-06-12 00:00:00 2022-06-12 00:00:00 VARUN Mayes: [address] [place] [address] , Ph. [facility] [place] [facility] [id number] [facility] 2022-05-12 00:00:00 2022-05-12 00:00:00 Outpatient FOG_Duarte Schultz AOSM AO [id number] [facility] 2022-05-08 00:00:00 2022-05-08 00:00:00 VARUN Mayes: [address] [place] [address] , Ph. [phone] [facility] [place] [facility] [id number] [facility] 2022-05-02 00:00:00 2022-05-02 00:00:00 Outpatient FOG_Duarte Schultz AOSM AO [id number] [facility] 2022-05-02 00:00:00 2022-05-02 00:00:00 Outpatient FOG_Duarte Schultz AO AO [id number] [facility] 2022-04-05 00:00:00 2022-04-05 00:00:00 VARUN Mayes: [address] [place] [address] , Ph. [phone] [facility] [place] [facility] [id number] [facility] 2022-01-11 00:00:00 2022-01-11 00:00:00 Outpatient FOG_Duarte Schultz AO AO [id number] [facility] 2022-01-11 00:00:00 2022-01-11 00:00:00 Outpatient FOG_Duarte Schultz AO AO [id number] [facility] 2021-12-15 00:00:00 2021-12-15 00:00:00 Outpatient FOG_Duarte Schultz AO AO [id number] [facility] 2021-12-15 00:00:00 2021-12-15 00:00:00 James Pollock MD: [address] [place] [address] , Ph. [phone] [facility] [place] [facility] [id number] [facility] 2021-12-14 00:00:00 2021-12-14 00:00:00 Outpatient FOG_Duarte Schultz AOSM AO [id number] [facility] 2021-12-08 00:00:00 2021-12-08 00:00:00 Outpatient FOG_Duarte Schultz AOSM AO [id number] [facility] 2021-11-15 00:00:00 2021-11-15 00:00:00 Outpatient [facility] [id number] [facility] 2021-11-15 00:00:00 2021-11-15 00:00:00 Naseem Winchester MD: [address] [place] [address] , Ph. [phone] [place] [facility] [id number] [facility] 2021-10-18 00:00:00 2021-10-18 00:00:00 Outpatient [facility]OG[facility]Duarte Schultz [facility] [id number] [facility]
[2023-04-02] MEDS ORDERED: NA CHLORIDE 0.9% 500 ML ONE (16:35)
[2023-04-02] MEDS ORDERED: METRONIDAZOLE 500mg IVPB 500 MG/100 ML BAG IV ONE (16:36)
[2023-04-02] MEDS ORDERED: CIPROFLOXACIN 400mg IV 400 MG/200 ML BAG IV ONE (16:36)
[2023-04-02] MEDS ORDERED: ONDANSETRON 4 MG/2 ML VIAL ONE (16:44)
[2023-04-02 16:45] LABS: Protime INR 1.02
[2023-04-02] MEDS ORDERED: MORPHINE 4 MG/ML SYR ONE (16:45)
[2023-04-02 16:48] LABS: Absolute Lymphocytes (CBC) 1.9 K/uL (0.7-4.9); Lymphocytes % 17.8 % (15.3-44.8); MCV 88.2 fL (80-100); Platelets 270 thou/uL (152-406); RBC Red Blood Cell Count 4.99 M/uL (4.33-5.43)
[2023-04-02 16:59] LABS: Albumin 3.7 g/dL (3.4-5.0); Bilirubin Direct 0.3 mg/dL (0-0.2); Bilirubin Indirect, Calculated 0.5 mg/dL (0.2-0.8); Bilirubin Total 0.8 mg/dL (0.2-1.0); Magnesium 1.7 mg/dL (1.6-2.4); Potassium 3.6 mEq/L (3.5-5.1); Protein, Total 7.9 g/dL (6.4-8.2); Troponin High Sensitivity 3.4 pg/mL (<58.9)
--- NOTE | 2023-04-02 17:46 | EDPHYS ---
Physician Documentation [facility] Name: Randell Alvarenga Age: 67 yrs Sex: Male : 1955 Arrival Date: 04/02/2023 Time: 16:00 Bed 7 Private MD: MYRIAM Physician Jaime Hardin HPI: 04/02 17:40 This 67 yrs old Male presents to ER via Ambulatory with complaints of Rectal yaquelin Abscess. 17:40 The patient presents to the emergency department with an abscess of the gluteal cleft yaquelin and left gluteus kim. Onset: The symptoms/episode began/occurred 1 week(s) ago. Context: the patient has no known special context relating to the rectal area complaint(s). Modifying factors: The symptoms are alleviated by remaining still, sitz baths, The symptoms are aggravated by movement, sitting position. Associate signs and symptoms: The patient has no apparent associated signs or symptoms. The patient has not experienced similar symptoms in the past. Historical: - Allergies: 16:13 No Known Allergies; ko1 - Home Meds: 17:01 etodolac 300 mg Oral capsule 1 cap 2 times per day [Active]; gabapentin 300 mg oral ph capsule 1 cap 3 times per day [Active]; tamsulosin 0.4 mg oral capsule 1 cap daily [Active]; amlodipine 5 mg tablet daily [Active]; pantoprazole 40 mg oral tablet, delayed release (enteric coated) daily [Active]; metoprolol tartrate 25 mg Oral tablet 1 tab daily [Active]; amitriptyline 150 mg Oral tablet every day at bedtime [Active]; venlafaxine 75 mg oral Capsule, ER 24 hr every day at bedtime [Active]; atorvastatin 40 mg oral tablet every day at bedtime [Active]; - PMHx: 16:13 acid reflux; degenerative arthritis; Hypertension; High Cholesterol; ko1 - PSHx: 16:13 Carpal Tunnel - Bilateral; laminectomy; Knees - Bilateral; Shoulder - Right; Spinal ko1 Cord Stimulator; - Immunization history:: Adult Immunizations up to date. - Social history:: Smoking status: Patient denies any tobacco usage or history of. ROS: 17:42 Constitutional: Negative for fever, chills, and weight loss, Eyes: Negative for injury, yaquelin pain, redness, and discharge, ENT: Negative for injury, pain, and discharge, Neck: Negative for injury, pain, and swelling, Cardiovascular: Negative for chest pain, palpitations, and edema, Respiratory: Negative for shortness of breath, cough, wheezing, and pleuritic chest pain, Abdomen/GI: Negative for abdominal pain, nausea, vomiting, diarrhea, and constipation, Back: Negative for injury and pain, : Negative for injury, bleeding, discharge, and swelling, MS/Extremity: Negative for injury and deformity, Neuro: Negative for headache, weakness, numbness, tingling, and seizure, Psych: Negative for depression, anxiety, suicide ideation, homicidal ideation, and hallucinations, Allergy/Immunology: Negative for hives, rash, and allergies, Endocrine: Negative for neck swelling, polydipsia, polyuria, polyphagia, and marked weight changes, Hematologic/Lymphatic: Negative for swollen nodes, abnormal bleeding, and unusual bruising, 17:42 Skin: Positive for abscess, cellulitis, swelling, of the buttocks, Exam: 17:42 Constitutional: This is a well developed, well nourished patient who is awake, alert, yaquelin and in no acute distress. Head/Face: Normocephalic, atraumatic. Eyes: Pupils equal round and reactive to light, extra-ocular motions intact. Lids and lashes normal. Conjunctiva and sclera are non-icteric and not injected. Cornea within normal limits. Periorbital areas with no swelling, redness, or edema. ENT: Nares patent. No nasal discharge, no septal abnormalities noted. Tympanic membranes are normal and external auditory canals are clear. Oropharynx with no redness, swelling, or masses, exudates, or evidence of obstruction, uvula midline. Mucous membranes moist. Neck: Trachea midline, no thyromegaly or masses palpated, and no cervical lymphadenopathy. Supple, full range of motion without nuchal rigidity, or vertebral point tenderness. No Meningismus. Chest/axilla: Normal chest wall appearance and motion. Nontender with no deformity. No lesions are appreciated. Cardiovascular: Regular rate and rhythm with a normal S1 and S2. No gallops, murmurs, or rubs. Normal PMI, no JVD. No pulse deficits. Respiratory: Lungs have equal breath sounds bilaterally, clear to auscultation and percussion. No rales, rhonchi or wheezes noted. No increased work of breathing, no retractions or nasal flaring. Abdomen/GI: Soft, non-tender, with normal bowel sounds. No distension or tympany. No guarding or rebound. No evidence of tenderness throughout. Back: No spinal tenderness. No costovertebral tenderness. Full range of motion. Male : Normal genitalia with no discharge or lesions. MS/ Extremity: Pulses equal, no cyanosis. Neurovascular intact. Full, normal range of motion. Neuro: Awake and alert, GCS 15, oriented to person, place, time, and situation. Cranial nerves II-XII grossly intact. Motor strength 5/5 in all extremities. Sensory grossly intact. Cerebellar exam normal. Normal gait. Psych: Awake, alert, with orientation to person, place and time. Behavior, mood, and affect are within normal limits. 17:42 Skin: abscess, that is moderate sized, of the gluteal cleft and left gluteus kim, cellulitis, that is mild, induration, that is moderate is noted, 17:47 ECG was reviewed by the Attending Physician. [facility] Vital Signs: 16:10 BP 143 / 97; Pulse 94; Resp 18; Temp 97.2; Pulse Ox 99% ; ko1 16:59 BP 139 / 86; Pulse 85; Resp 18; Pulse Ox 98% on R/A; ph 18:26 BP 136 / 81; Pulse 81; Resp 18; Pulse Ox 97% on R/A; ph 20:59 BP 137 / 95; Pulse 81; Resp 18; Temp 98; Pulse Ox 95% on R/A; rv MDM: 16:13 Patient medically screened. [facility] 17:44 Differential diagnosis: abscess, cellulitis, abscess. Data reviewed: vital signs, [facility] nurses notes, lab test result(s), EKG, radiologic studies, CT scan, plain films. Consideration of Admission/Observation Escalation of care including admission/observation considered. I considered the following discharge prescriptions or medication management in the emergency department Medications were administered in the Emergency Department. See MAR. Test considered but Not performed: Ultrasound no abd usg. Care significantly affected by the following chronic conditions: Hypertension, gerd, oa, high cholesterol. 04/02 16:15 Order name: Basic Metabolic Panel; Complete Time: 17:46 [facility] 04/02 16:15 Order name: CBC with Diff; Complete Time: 17:46 [facility] 04/02 16:15 Order name: LFT's; Complete Time: 17:46 04/02 16:15 Order name: Magnesium; Complete Time: 17:46 [facility] 04/02 16:15 Order name: NT PRO-BNP; Complete Time: 17:46 [facility] 04/02 16:15 Order name: PT-INR; Complete Time: 17:46 [facility] 04/02 16:15 Order name: Troponin HS; Complete Time: 17:46 [facility] 04/02 16:15 Order name: Urinalysis w/ reflexes [facility] 04/02 18:04 Order name: CBC with Automated Diff EDMS 04/02 18:04 Order name: CBC with Automated Diff EDMS 04/02 18:04 Order name: Comprehensive Metabolic Panel EDSD 04/02 18:04 Order name: Comprehensive Metabolic Panel EDSD 04/02 16:15 Order name: XRAY Chest (1 view); Complete Time: 18:47 [facility] 04/02 16:15 Order name: CT Abd/Pelvis - IV Contrast Only; Complete Time: 18:47 [facility] 04/02 16:15 Order name: EKG; Complete Time: 16:16 [facility] 04/02 18:04 Order name: CONS Physician Consult [facility] 04/02 16:15 Order name: Cardiac monitoring; Complete Time: 16:40 [facility] 04/02 16:15 Order name: EKG - Nurse/Tech; Complete Time: 16:40 [facility] 04/02 16:15 Order name: IV Saline Lock; Complete Time: 16:40 [facility] 04/02 16:15 Order name: Labs collected and sent; Complete Time: 16:40 [facility] 04/02 16:15 Order name: O2 Per Protocol; Complete Time: 16:40 [facility] 04/02 16:15 Order name: O2 Sat Monitoring; Complete Time: 16:40 [facility] EC:47 Rate is 81 beats/min. Rhythm is regular. QRS [place] is Normal. [place] interval is normal. QRS yaquelin interval is normal. QT interval is normal. No Q waves. T waves are Normal. No ST changes noted. Clinical impression: NSR w/ Non-specific ST/T Changes and No evidence of ischemia. Interpreted by me. Reviewed by me. Administered Medications: 16:45 Drug: NS 0.9% IV 500 ml IV at bolus once Route: IV; Rate: bolus; Site: right forearm; ph 18:26 Follow up: Response: No adverse reaction; IV Status: Completed infusion ph 16:45 Drug: metroNIDAZOLE IVPB 500 mg 100 ml IVPB at 200 ml/hr once over 30 mins Volume: 100 ph ml; Route: IVPB; Rate: 200 ml/hr; Infused Over: 30 mins; Site: right forearm; 18:27 Follow up: Response: No adverse reaction; IV Status: Completed infusion ph 16:55 Drug: Ciprofloxacin IVPB 400 mg 200 ml IVPB once over 60 mins Volume: 200 ml; Route: ph IVPB; Infused Over: 60 mins; Site: right forearm; 18:27 Follow up: Response: No adverse reaction; IV Status: Completed infusion ph 16:56 Drug: morphine IVP or IV 4 mg IVP once over 4 mins Route: IVP; Infused Over: 4 mins; ph Site: right forearm; 18:27 Follow up: Response: No adverse reaction ph 16:56 Drug: Ondansetron IVP 4 mg IVP once; over 2 minutes Route: IVP; Site: right forearm; ph 18:27 Follow up: Response: No adverse reaction ph 20:05 Drug: NS 0.9% IV 1000 ml IV at 125 ml/hr continuous Route: IV; Rate: 125 ml/hr; Site: jw7 right forearm; 21:12 Follow up: IV Status: Infusion continued upon admission rv Disposition Summary: 04/02/23 17:46 Hospitalization Ordered Notes: Hospitalization Status: Observation yaquelin Provider: Kendell Feliciano cha [facility] yaquelin Condition: Stable yaquelin Problem: new yaquelin Symptoms: have improved yaquelin Bed/Room Type: Standard [facility] Room Assignment: 407(04/02/23 20:57) jb4 Diagnosis - Cutaneous abscess of buttock - left yaquelin Forms: - Medication Reconciliation Form yaquelin - SBAR form yaquelin - Leadership Thank You Letter yaquelin Signatures: Dispatcher [employer] Jaime Perez MD MD cha Hall, Patricia, RN RN Dieter Carrillo RN RN jb4 Tatyana Bro RN RN jw7 Renita Pena RN RN ko1 Walter Adler RN rv Corrections: (The following items were deleted from the chart) 20:57 17:46 yaquelin jb4
--- NOTE | 2023-04-02 17:46 | ER ---
Nurse's Notes [facility] Name: Randell Alvarenga Age: 67 yrs Sex: Male : 1955 Arrival Date: 04/02/2023 Time: 16:00 Bed 7 Private MD: Diagnosis: Cutaneous abscess of buttock-left Presentation: 04/02 16:10 Chief complaint: Patient states: rectal abscess, has been coming and going but now ko1 worse and not getting any better. Coronavirus screen: At this time, the client does not indicate any symptoms associated with coronavirus-19. Ebola Screen: No symptoms or risks identified at this time. Initial Sepsis Screen: Does the patient meet any 2 criteria? No. Patient's initial sepsis screen is negative. Does the patient have a suspected source of infection? No. Patient's initial sepsis screen is negative. Risk Assessment: Do you want to hurt yourself or someone else? Patient reports no desire to harm self or others. Onset of symptoms is unknown. 16:10 Method Of Arrival: Ambulatory ko1 16:10 Acuity: HEENA 3 ko1 Triage Assessment: 16:13 General: Appears in no apparent distress. uncomfortable, Behavior is calm, cooperative, ko1 appropriate for age. Pain: Complains of pain in gluteal cleft. Historical: - Allergies: 16:13 No Known Allergies; ko1 - Home Meds: 17:01 etodolac 300 mg Oral capsule 1 cap 2 times per day [Active]; gabapentin 300 mg oral ph capsule 1 cap 3 times per day [Active]; tamsulosin 0.4 mg oral capsule 1 cap daily [Active]; amlodipine 5 mg tablet daily [Active]; pantoprazole 40 mg oral tablet, delayed release (enteric coated) daily [Active]; metoprolol tartrate 25 mg Oral tablet 1 tab daily [Active]; amitriptyline 150 mg Oral tablet every day at bedtime [Active]; venlafaxine 75 mg oral Capsule, ER 24 hr every day at bedtime [Active]; atorvastatin 40 mg oral tablet every day at bedtime [Active]; - PMHx: 16:13 acid reflux; degenerative arthritis; Hypertension; High Cholesterol; ko1 - PSHx: 16:13 Carpal Tunnel - Bilateral; laminectomy; Knees - Bilateral; Shoulder - Right; Spinal ko1 Cord Stimulator; - Immunization history:: Adult Immunizations up to date. - Social history:: Smoking status: Patient denies any tobacco usage or history of. Screenin:57 [facility] ED Fall Risk Assessment (Adult) History of falling in the last 3 months, ph including since admission No falls in past 3 months (0 pts) Score/Fall Risk Level 0 - 2 = Low Risk Oriented to surroundings, Maintained a safe environment, Provided non-skid footwear, Hourly rounding (assess needs \T\ fall precautionary measures) done. Abuse screen: Denies threats or abuse. Denies injuries from another. Nutritional screening: No deficits noted. Tuberculosis screening: No symptoms or risk factors identified. Assessment: 16:57 General: Appears in no apparent distress. comfortable, well groomed, Behavior is calm, ph cooperative, appropriate for age. Pain: Complains of pain in buttocks. Neuro: Level of Consciousness is awake, alert, obeys commands, Oriented to person, place, time, situation. Cardiovascular: Capillary refill < 3 seconds in bilateral fingers Patient's skin is warm and dry. Respiratory: Airway is patent Respiratory effort is even, unlabored. Derm: Skin is pink, warm \T\ dry. Abscess located on perineum has purulent drainage, is red, is raised, was lanced by patient prior to arrival. Musculoskeletal: Circulation, motion, and sensation intact. Range of motion: intact in all extremities. 19:00 General: Appears in no apparent distress. comfortable, Behavior is calm, cooperative. jw7 Pain: Denies pain. Neuro: Level of Consciousness is awake, alert, obeys commands, Oriented to person, place, time, situation. Cardiovascular: Capillary refill < 3 seconds Patient's skin is warm and dry. Respiratory: Airway is patent Trachea midline Respiratory effort is even, unlabored, Respiratory pattern is regular, symmetrical. 19:00 GI: Abdomen is round non-distended. : No deficits noted. No signs and/or symptoms jw7 were reported regarding the genitourinary system. EENT: No deficits noted. No signs and/or symptoms were reported regarding the EENT system. Derm: Skin is intact, is healthy with good turgor, Skin is dry, Skin is normal, Skin temperature is warm. Musculoskeletal: Circulation, motion, and sensation intact. Range of motion: intact in all extremities. Vital Signs: 16:10 BP 143 / 97; Pulse 94; Resp 18; Temp 97.2; Pulse Ox 99% ; ko1 16:59 BP 139 / 86; Pulse 85; Resp 18; Pulse Ox 98% on R/A; ph 18:26 BP 136 / 81; Pulse 81; Resp 18; Pulse Ox 97% on R/A; ph 20:59 BP 137 / 95; Pulse 81; Resp 18; Temp 98; Pulse Ox 95% on R/A; rv ED Course: 16:06 Patient arrived in ED. ae5 16:13 Triage completed. ko1 16:13 Jaime Hardin MD is Attending Physician. yaquelin 16:13 Arm band placed on left wrist. Patient placed in an exam room, on a stretcher, on pulse ko1 oximetry, Patient notified of wait time. 16:16 Mayra Gao RN is Primary Nurse. ph 16:57 Patient has correct armband on for positive identification. Bed in low position. Call ph light in reach. Side rails up X 1. Pulse ox on. NIBP on. Door closed. Noise minimized. Warm blanket given. Pillow given. 16:59 Inserted saline lock: 20 gauge in right forearm, using aseptic technique. ph 16:59 No provider procedures requiring assistance completed. Patient admitted, IV remains in ph place. 17:08 XRAY Chest (1 view) In Process Unspecified. EDMS 17:37 CT Abd/Pelvis - IV Contrast Only In Process Unspecified. EDMS 17:45 Kendell Feliciano MD is Hospitalizing Provider. yaquelin 19:00 Provided Education on: need for admit. jw7 20:25 Primary Nurse role handed off by Mayra Gao, RN as6 20:58 Walter Adler RN is Primary Nurse. rv Administered Medications: 16:45 Drug: NS 0.9% IV 500 ml IV at bolus once Route: IV; Rate: bolus; Site: right forearm; ph 18:26 Follow up: Response: No adverse reaction; IV Status: Completed infusion ph 16:45 Drug: metroNIDAZOLE IVPB 500 mg 100 ml IVPB at 200 ml/hr once over 30 mins Volume: 100 ph ml; Route: IVPB; Rate: 200 ml/hr; Infused Over: 30 mins; Site: right forearm; 18:27 Follow up: Response: No adverse reaction; IV Status: Completed infusion ph 16:55 Drug: Ciprofloxacin IVPB 400 mg 200 ml IVPB once over 60 mins Volume: 200 ml; Route: ph IVPB; Infused Over: 60 mins; Site: right forearm; 18:27 Follow up: Response: No adverse reaction; IV Status: Completed infusion ph 16:56 Drug: morphine IVP or IV 4 mg IVP once over 4 mins Route: IVP; Infused Over: 4 mins; ph Site: right forearm; 18:27 Follow up: Response: No adverse reaction ph 16:56 Drug: Ondansetron IVP 4 mg IVP once; over 2 minutes Route: IVP; Site: right forearm; ph 18:27 Follow up: Response: No adverse reaction ph 20:05 Drug: NS 0.9% IV 1000 ml IV at 125 ml/hr continuous Route: IV; Rate: 125 ml/hr; Site: jw7 right forearm; 21:12 Follow up: IV Status: Infusion continued upon admission rv Medication: 16:57 VIS not applicable for this client. ph Outcome: 17:46 Decision to Hospitalize by Provider. yaquelin 21:11 Admitted to Tele accompanied by tech, via wheelchair, room 407, with chart, Report rv called to telecom specialist 21:11 Condition: good 21:11 Instructed on the need for admit, 21:40 Patient left the ED. rv Signatures: Dispatcher [employer] Jaime Perez MD MD cha Hall, Patricia, RN RN Walter Adler RN RN Tello Ashby RN RN as6 Tatyana Bro RN RN jw7 Renita Pena RN RN ko1 Gina Rondon ae5
--- NOTE | 2023-04-02 17:48 | RAD REPORT ---
[facility] 5[facility]06 pm CLINICAL HISTORY: CHEST PAIN COMPARISON: Chest Pa And Lat (2 Views) dated 02/13/2022 TECHNIQUE: Portable AP view of the chest. FINDINGS: The lungs are clear. No pneumothorax or effusion. The cardiomediastinal contours are unre markable. IMPRESSION: No acute cardiopulmonary process.
[2023-04-02] MEDS ORDERED: MORPHINE 2 MG/ML SYR IV PRN (17:58)
[2023-04-02] MEDS ORDERED: ONDANSETRON 4 MG/2 ML VIAL IV PRN (17:58)
[2023-04-02] MEDS ORDERED: ACETAMINOPHEN 500 MG TAB PO PRN (17:58)
[2023-04-02] MEDS: NA CHLORIDE 0.9% 1,000 ML IV SCH (18:00)
--- NOTE | 2023-04-02 18:08 | P.HP ---
Certification for Inpatient Patient admitted to: Observation With expected LOS: <2 Midnights Practitioner: I am a practitioner with admitting privileges, knowledge of patient current condition, hospital course, and medical plan of care. Services: Services provided to patient in accordance with Admission requirements found in Title 42 Section 412.3 of the Code of Federal Regulations Patient History Date of Service: 04/02/23 Reason for admission: Pain in left buttocks History of Present Illness: 67-year-old male with a past medical history of hypertension, arthritis, GERD, BPH who started having pain in swelling in the left side of the gluteal region which has been going on for the last 3 to 4 months and has been progressively worsening over the last few days with minimal drainage. Drainage is serosanguineous with some purulent material. Pain is sharp in quality 8 out of 10 in severity, nonradiating. Patient denies any fever or chills. No nausea vomiting or diarrhea. No similar history in the past. Worse with movements. And touch. Denies any history of diabetes. No history of trauma. Patient was assessed in the ER and had a CT of the abdomen pelvis which was consistent with left gluteal abscess and was admitted for further management and surgical consult. Patient also was started on IV antibiotics and pain medications. Allergies No Known Allergies Allergy (Unverified 11/17/22 14:45) Home medications list reviewed: Yes Home Medications: Amitriptyline HCl 1 tab PO BEDTIME 11/17/22 Amlodipine [Norvasc*] 1 tab PO DAILY 11/17/22 Atorvastatin Calcium 1 tab PO BEDTIME 11/17/22 Etodolac 1 cap PO BID 11/17/22 Gabapentin 300 mg PO BID 11/17/22 Metoprolol Tartrate [Lopressor*] 1 tab PO BEDTIME 11/17/22 Pantoprazole [Protonix Tab*] 1 tab PO DAILY 11/17/22 Tamsulosin HCl 1 cap PO DAILY 11/17/22 Venlafaxine HCl [Venlafaxine HCl ER] 1 tab PO BEDTIME 11/17/22 Amoxicillin/Potassium Clav [Amox-Clav 875-125 mg Tablet] 1 each PO BID 7 Days #14 tab 11/18/22 predniSONE [Deltasone*] 10 mg PO DAILY 3 Days #3 tab 11/18/22 - Past Medical/Surgical History Diabetic: No Past Medical History: Reviewed- Non-Contributory -: HLD -: HTN -: Degenerative arthritis -: Acid Reflux Past Surgical History: Reviewed- Non-Contributory -: LAURA knee replacements -: R shoulder replacement -: Spinal cord stimulator -: neck surgery - Family History Family History: Reviewed- Non-Contributory - Family History Father -: Stroke - Social History Smoking Status: Never smoker Alcohol use: Yes CD- Drugs: No Caffeine use: Yes Review of Systems 10-point ROS is otherwise unremarkable General: Unremarkable Eyes: Unremarkable ENT: Unremarkable Respiratory: Unremarkable Cardiovascular: Unremarkable Gastrointestinal: Unremarkable Genitourinary: Unremarkable Musculoskeletal: Unremarkable Neurological: Unremarkable Physical Examination - Vital Signs Temperature: 98.8 F Blood Pressure: 138/78 Pulse: 78 Respirations: 18 Pulse Ox (%): 96 - Physical Exam General: Alert, In no apparent distress, Oriented x3 HEENT: Atraumatic, Normocephalic Neck: Supple, JVD not distended Respiratory: Clear to auscultation bilaterally, Normal air movement Cardiovascular: Normal pulses, Regular rate/rhythm, Normal S1 S2 Capillary refill: <2 Seconds Gastrointestinal: Soft and benign, W/out hepatosplenomegaly Musculoskeletal: No clubbing, No swelling Integumentary: No rashes, No tenderness/swelling Neurological: Normal strength at 5/5 x4 extr, Sensation intact, Cranial nerves 3-12 intact Lymphatics: No axilla or inguinal lymphadenopathy - Studies Laboratory Data (last 24 hrs) 04/02/23 04/02/23 04/02/23 16:30 16:30 16:30 WBC 10.40 Hgb 14.5 Hct 44.0 Plt Count 270 PT 11.2 INR 1.02 Sodium 136 Potassium 3.6 BUN 10 Creatinine 0.69 L Glucose 89 Magnesium 1.7 Total Bilirubin 0.8 AST 10 L ALT 25 Alkaline Phosphatase 130 H Imagings Data: Asymmetric soft tissue swelling and inflammatory changes in the perianal/ left peroneal region extending along the left gluteal fold with an ill-defined collection component measuring 2.5 cm, concerning for a small abscess. Assessment and Plan - Problems (Diagnosis) (1) Abscess, gluteal, left Current Visit: Yes Status: Acute Plan: Started on pain medication IV antibiotics Surgical consult appreciated Posted for incision and drainage in a.m. N.p.o. post midnight IV hydration (2) Essential (primary) hypertension Current Visit: No Status: Chronic Plan: Continue amlodipine and metoprolol Monitor under telemetry Will titrate as needed (3) GERD (gastroesophageal reflux disease) Current Visit: No Status: Chronic Plan: Continue PPI Qualifiers: Esophagitis presence: without esophagitis Qualified Code(s): K21.9 - Gastro-esophageal reflux disease without esophagitis (4) Hyperlipidemia Current Visit: No Status: Chronic Plan: Continue statin Qualifiers: Hyperlipidemia type: moderate mixed hyperlipidemia not requiring statin therapy Qualified Code(s): E78.2 - Mixed hyperlipidemia Discharge Plan: Home Plan to discharge in: 48 Hours - Advance Directives Does patient have a Living Will: No Does patient have a Durable POA for Healthcare: No - Code Status/Comfort Care Code Status: Full Code Physician Review: Patient Assessed, Agree with Above Assessment and Plan Time Spent Managing Pts Care (In Minutes): 48
--- NOTE | 2023-04-02 18:21 | RAD REPORT ---
EXAM DESCRIPTION: CT - Abdomen Pelvis W Contrast - 04/02/2023 5:35 pm CLINICAL HISTORY: Pain;Margo-rectal abcess COMPARISON: Abdomen Pelvis W Contrast dated 04/07/2020 TECHNIQUE: Thin cut axial CT imaging of the abdomen and pelvis was performed following intravenous a dministration of Isovue 300. Multiplanar reformats were generated and reviewed. All CT scans are performed using dose optimization technique as appropriate and may include automated exposure control or mA/KV adjustment according to patient size. FINDINGS: No suspicious findings in the lung bases. The liver, spleen, adrenal glands, and pancreas show no suspicious findings. Gallbladder and biliary tree are also without suspicious finding. Symmetric renal function is seen with no hydronephrosis or suspicious renal mass. Small cortical hypo attenuating lesions suggestive of cysts, not well characterized but appears stable. Nonobstructing 2 mm left renal calculi No dilated bowel loops or bowel wall thickening. No free air, free fluid or inflammatory stranding. S mall right inguinal hernia containing fat. No suspicious Mass or bulky lymphadenopathy. The urinary b ladder is without significant finding. Moderate prostatomegaly. Asymmetric soft tissue swelling and skin thickening in the perianal region and perineum more so on th e left, extending posteriorly along the left gluteal fold, with an ill-defined component approaching fluid density, measuring 25 x 12 mm. No soft tissue gas. Mild fluid distention of the left hip joint space superiorly, may reflect a mild effusion with synovi tis. Ovoid mixed density lesion overlying the right posterior flank muscles on axial image 45 measuri ng 25 x 17 mm, indeterminate, and may reflect a small seroma or soft tissue abscess. No suspicious bony findings. IMPRESSION: Asymmetric soft tissue swelling and inflammatory changes in the perianal/ left peroneal region extending along the left gluteal fold with an ill-defined collection component measuring 2.5 c m, concerning for a small abscess. Ovoid mixed density 2.5 cm lesion overlying the right posterior flank muscles, not entirely specific but may reflect a small seroma or soft tissue abscess. Likely small left hip effusion, with synovitis or possibly superimposed infection. Nonobstructing tiny left renal calculi. Other incidental findings as above.
[2023-04-02] MEDS ORDERED: NA CHLORIDE 0.9% 1,000 ML ONE (19:25)
[2023-04-02] MEDS ORDERED: VENLAFAXINE HCL XR 75 MG CAP PO SCH (21:00)
[2023-04-02] MEDS ORDERED: AMITRIPTYLINE 50 MG TAB PO SCH (21:00)
[2023-04-02] MEDS ORDERED: ATORVASTATIN 40 MG TAB PO SCH (21:00)
[2023-04-02] MEDS ORDERED: METOPROLOL TAR 25 MG TAB PO SCH (21:00)
[2023-04-02] MEDS: HYDROCODONE/APAP 7.5/325 MG TAB PO PRN (21:58)
[2023-04-02] MEDS: GABAPENTIN 300 MG CAP PO SCH (21:58)
[2023-04-02 22:25] LABS: Urine Bacteria None Seen /HPF (<20); Urine RBC <5 /HPF (None Seen)
[2023-04-02 22:26] LABS: Specific Gravity 1.022 (1.005-1.030); Urine Bilirubin 1+ (Negative); Urine Blood Negative (Negative); Urine Clarity Clear (Clear); Urine Color Light-Yellow (Yellow); Urine Glucose NEGATIVE (Negative); Urine Protein NEGATIVE (Negative); Urine Urobilinogen Normal (Normal)
[2023-04-02 22:41] VITALS: BMI 25.5
[2023-04-03] MEDS: METRONIDAZOLE 500mg IVPB 500 MG/100 ML BAG IV SCH ×2 (00:39→08:54)
[2023-04-03] MEDS: HYDROCODONE/APAP 7.5/325 MG TAB PO PRN (01:38)
[2023-04-03 06:12] LABS: Absolute Lymphocytes (CBC) 1.7 K/uL (0.7-4.9); Hematocrit 39.2 % (39.6-49.0); MCV 88.9 fL (80-100); MPV 8.1 fL (7.6-11.3); Platelets 251 thou/uL (152-406); RBC Red Blood Cell Count 4.41 M/uL (4.33-5.43)
[2023-04-03 06:22] LABS: Bilirubin Total 0.4 mg/dL (0.2-1.0); Potassium 3.8 mEq/L (3.5-5.1); Protein, Total 6.5 g/dL (6.4-8.2)
[2023-04-03] MEDS ORDERED: PANTOPRAZOLE 40MG TABLET PO SCH (07:30)
[2023-04-03] MEDS ORDERED: INFLUENZA VACCINE (for 6+ mo) 0.5 ML DOSE IMVAC ONE ×2 (08:00→16:00)
[2023-04-03] MEDS ORDERED: ETODOLAC 300 MG PO SCH (09:00)
[2023-04-03] MEDS ORDERED: CEFTRIAXONE 1,000 MG in NA CHLORIDE 0.9% 50 ML IVPB SCH (09:00)
[2023-04-03] MEDS: GABAPENTIN 300 MG CAP PO SCH (09:00)
[2023-04-03] MEDS ORDERED: AMLODIPINE 5 MG TAB PO SCH (09:00)
[2023-04-03] MEDS ORDERED: TAMSULOSIN 0.4 MG SR CAP PO SCH (09:00)
[2023-04-03] MEDS ORDERED: FENTANYL CITR 100 MCG/2 ML ONE (10:06)
[2023-04-03] MEDS ORDERED: propofoL 200 MG/20 ML VIAL IV ONE (10:06)
[2023-04-03] MEDS ORDERED: LIDOCAINE 2% MPF 5 ML VIAL ONE (10:06)
[2023-04-03] MEDS ORDERED: ONDANSETRON 4 MG/2 ML VIAL ONE (10:06)
[2023-04-03] MEDS ORDERED: BUPIVACAINE 0.5% PF 10 ML VIAL ONE (10:52)
[2023-04-03] MEDS ORDERED: dexAMETHasone 10 MG/ML VIAL ONE (11:14)
[2023-04-03] MEDS ORDERED: GLYCOPYRROLATE 0.2 MG/ML SYR ONE (11:18)
[2023-04-03] MEDS ORDERED: HYDROCODONE/APAP 5/325 MG TAB PO PRN (11:50)
--- NOTE | 2023-04-03 12:01 | P.BOP ---
Preoperative diagnosis: Perianal tender abscess, cellulitis Postoperative diagnosis: same Primary procedure: EUA, anoscopy, rigid proctoscopy, I+D complex perianal abscess Estimated blood loss: <20cc Specimen: culture Findings: complext perianal abscess, multiple loculation anal to left buttock Anesthesia: General Complications: None Drain(s): Other (1/" packing) Transferred to: Recovery Room Condition: Good
[2023-04-03] MEDS ORDERED: NA CHLORIDE 0.9% 1,000 ML ONE (12:29)
[2023-04-03 12:41] VITALS: BP 146/91; TEMP 97; O2SAT 97
--- NOTE | 2023-04-03 12:56 | EKG ---
Test Date: 2023-04-02 Test Time: 16:38:30 Recreation Therapist: FRANKIE MEASUREMENT RESULTS: Intervals: Rate: 81 CT: 178 QRSD: 98 QT: 376 QTc: 436 [place]: P: 46 CT: 178 QRS: -30 T: 23 INTERPRETIVE STATEMENTS: Normal sinus rhythm Left axis deviation Abnormal ECG Compared to ECG 11/17/2022 11:43:03 No significant changes Electronically Signed On 04-03-23 12:52:48 MAKING DEPARTMENT PREPARER by Kimo Canchola
--- NOTE | 2023-04-03 13:41 | P.DS ---
Admission Date: 04/02/23 Discharge Date: 04/03/23 Disposition: ROUTINE DISCHARGE Discharge Condition: FAIR Reason for Admission: Pain in left buttocks - Problems (1) Perianal abscess Current Visit: Yes Status: Acute (2) Essential (primary) hypertension Current Visit: No Status: Chronic Brief History of Present Illness: 67-year-old male with a past medical history of hypertension, arthritis, GERD, BPH started having pain swelling in the left side of the gluteal region which has been going on for the last 3 to 4 months and has been progressively worsened with minimal drainage. Drainage is serosanguineous with some purulent material. Patient denies any fever or chills. No nausea vomiting or diarrhea. No similar history in the past. Denies any history of diabetes. No history of trauma. Patient was assessed in the ER and had a CT of the abdomen pelvis which was consistent with left gluteal abscess and was admitted for further management and surgical consult. Patient also was started on IV antibiotics and pain medications. Hospital Course: Patient admitted to the medical floor and started on IV antibiotics. He was seen and evaluated by Dr. Triplett who took him to surgery, did examination under anesthesia with anoscopy and proctoscopy, and performed I&D of complex perianal abscess. Biopsies obtained and deep tissue wound culture done. Patient deemed stable for discharge per surgery. He is prescribed Cipro, Flagyl and Bactrim. Patient will follow-up with Dr. Triplett for wound check within 3 days. Wound care instructions provided and analgesics provided. Vital Signs/Physical Exam: Temp Pulse Resp BP Pulse Ox 97.0 F 79 16 146/91 H 95 04/03/23 12:19 04/03/23 12:19 04/03/23 12:19 04/03/23 12:19 04/03/23 08:00 General: Alert, In no apparent distress, Oriented x3 HEENT: Mucous membr. moist/pink Neck: Supple, JVD not distended Respiratory: Clear to auscultation bilaterally, Normal air movement Cardiovascular: No edema, Regular rate/rhythm, Normal S1 S2 Gastrointestinal: Normal bowel sounds, Soft and benign, Non-distended, No tenderness Musculoskeletal: No swelling, No tenderness Integumentary: No cyanosis Neurological: Normal strength at 5/5 x4 extr Laboratory Data at Discharge: WBC 5.80 thou/uL (4.3-10.9) 04/03/23 05:36 Hgb 13.0 g/dL (13.6-17.9) L D 04/03/23 05:36 Hct 39.2 % (39.6-49.0) L 04/03/23 05:36 Plt Count 251 thou/uL (152-406) 04/03/23 05:36 PT 11.2 SECONDS (9.5-12.5) 04/02/23 16:30 INR 1.02 04/02/23 16:30 Sodium 140 mEq/L (136-145) 04/03/23 05:36 Potassium 3.8 mEq/L (3.5-5.1) 04/03/23 05:36 BUN 10 mg/dL (7-18) 04/03/23 05:36 Creatinine 0.76 mg/dL (0.70-1.30) 04/03/23 05:36 Glucose 103 mg/dL (74-106) 04/03/23 05:36 Magnesium 1.7 mg/dL (1.6-2.4) 04/02/23 16:30 Total Bilirubin 0.4 mg/dL (0.2-1.0) 04/03/23 05:36 AST 8 U/L (15-37) L 04/03/23 05:36 ALT 23 U/L (16-61) 04/03/23 05:36 Alkaline Phosphatase 115 U/L (45-117) 04/03/23 05:36 Home Medications: Amitriptyline HCl 1 tab PO BEDTIME 11/17/22 Amlodipine [Norvasc*] 1 tab PO DAILY 11/17/22 Atorvastatin Calcium 1 tab PO BEDTIME 11/17/22 Etodolac 1 cap PO BID 11/17/22 Gabapentin 300 mg PO BID 11/17/22 Metoprolol Tartrate [Lopressor*] 1 tab PO BEDTIME 11/17/22 Pantoprazole [Protonix Tab*] 1 tab PO DAILY 11/17/22 Tamsulosin HCl 1 cap PO DAILY 11/17/22 Venlafaxine HCl [Venlafaxine HCl ER] 1 tab PO BEDTIME 11/17/22 Losartan Potassium 25 mg PO DAILY 04/02/23 Ciprofloxacin HCl [Cipro] 500 mg PO BID #20 tab 04/03/23 Hydrocodone 5/APAP 325 [[place] 5/325*] 1 tab PO Q4H PRN #20 tab 04/03/23 Smz./Tmp. [Bactrim Ds 800 MG/160 MG] 1 tab PO BID #20 tab 04/03/23 metroNIDAZOLE [Flagyl] 500 mg PO Q8H #30 tab 04/03/23 New Medications: Smz./Tmp. [Bactrim Ds 800 MG/160 MG] 1 tab PO BID #20 tab Ciprofloxacin HCl [Cipro] 500 mg PO BID #20 tab metroNIDAZOLE [Flagyl] 500 mg PO Q8H #30 tab Hydrocodone 5/APAP 325 [[place] 5/325*] 1 tab PO Q4H PRN #20 tab PRN Reason: Pain Scale 5-7 (Moderate) Physician Discharge Instructions: * may remove 1/4" packing tomorrow. No need to repack, just cover with gauze. Activity: Weight bearing as tolerated Followup: Flavio Triplett MD [ACTIVE - CAN ADMIT] - 04/06/23 Lissett Locke FNP [Primary Care Provider] - If your Symptoms Worsen Time spent managing pt's care (in minutes): 28
[2023-04-03] MEDS: NA CHLORIDE 0.9% 1,000 ML IV SCH (14:00)
--- NOTE | 2023-04-03 15:09 | CON ---
Date of Consultation: 04/03/2023 Reason For Service: Perianal abscess. History Of Present Illness: This is the case of a 67-year-old patient who comes to us, admitted to [facility] with perianal tenderness, abscess drainage. He cannot sit. He had something similar in the past and drained and he got better, but never had a complete diagnosis for it. He had colonoscop y done recently. He does not remember the date. He had never seen a colorectal surgeon for any fist ulas or fissures in that area. The patient admitted for IV antibiotics, pain control, and also for i ncision and drainage of perianal abscess. Allergies: NONE. Current Medications: Include Norvasc, Lopressor, Protonix, Deltasone. Past Medical History: Hypertension. Past Surgical History: Includes bilateral knee replacement, right shoulder replacement, spinal cord stimulator, neck surgery. Family History: Noncontributory. Social History: He does not smoke. He does not drink alcohol. Review of Systems: Perianal tenderness. No abdominal pain. Fevers present but no chills. Review of systems 10 points otherwise unremarkable. No melena. No dysuria, no hematuria. No hematochezia. Physical Examination: Vital Signs: Reviewed. General: The patient is awake, alert. HEENT: Pupils are equal and reactive. Anicteric. Neck: Supple. Chest: Clear. Heart: S1, S2. Abdomen: Soft and depressible. Perianal area shows tenderness with bulging present in an abscess. The rest of examination will be done under anesthesia since the patient is too tender. Extremities: Good capillary refill. Laboratory Data: Blood work shows WBC count of 5.8. INR is 1.02. Potassium is 3.8. CAT scan of th e abdomen and pelvis shows a perianal abscess. Assessment: A 67-year-old patient with perianal abscess. The benefits, alternatives, and risks of E UA, anoscopy, proctoscopy, incision and drainage of perianal abscess fully explained, which include, but not limited to, infection, bleeding, damage to adjacent structures, anesthesia complication, NE, even . He also understands risks of anal stricture, anal incontinence, the probable need of pac papi. He also understands the etiology of that may be unknown at this moment, but if this continues, he may have to see a colorectal surgeon to rule out the presence of fistula. HM/MODL Voice ID: [id number] Report ID: [id number]
[2023-04-03] MEDS ORDERED: ENOXAPARIN 40 MG/0.4 ML SQ SCH (17:00)
--- NOTE | 2023-04-03 22:54 | OP ---
Date of Procedure: 04/03/2023 Surgeon: Flavio Triplett MD Preoperative Diagnoses: Perianal tenderness, perianal pain, cellulitis, perianal abscess. Postoperative Diagnoses: Perianal tenderness, perianal pain, cellulitis, perianal abscess, internal and external hemorrhoids and possible fistula. Anesthesia: General plus local. Procedures: Examination under anesthesia, anoscopy, rigid proctoscopy, an incision and drainage of p erianal abscess. Packing: A quarter of an inch Nu Gauze. Findings: Patient has internal and external hemorrhoids, but that is not the one causing this proble m right now, even though they are large. We have a perianal abscess going mostly in the perianal on left side. There is a small indentation on the skin that may be resemblance of an old fistula that p robably caused this, so we took a biopsy of that and sent it for evaluation. Complications: None. Indications: This is a case of a 67-year-old patient comes to the ER, not been able to sit due to pe rianal tenderness, found to have perianal abscess, admitted to the hospital for IV antibiotics and to ok him to surgery for EUA, anoscopy, proctoscopy, I and D of perianal abscess with benefits, alternat savana and risks include, but not limited to infection, bleeding, damage to adjacent structures, anesth esia complication, and stricture and incontinence, [place] and even . He also understands this may n ot relieve the symptoms. He might need more than one surgical intervention. He understood, signed a consent. Description Of Procedure: Patient brought to the operating room, placed in supine position, anesthes ia was induced without complication. Then, the patient was placed in lateral position with proper pr otection. A time-out was called. A rectal examination was done followed by rigid proctoscopy all th e way to about 12 cm limited by mild stools present. We noticed internal and external hemorrhoids. Then, we noticed this perianal abscess to the left posterior lateral region. There was fluctuance pr esent. We were trying to place anoscope in that region and we did make a window on the side and tryi ng to identify if this abscess connected to any fistula inside, but we do not see any opening inside the rectum. Now, on the area of the skin where the fluctuance is, we see an indentation, probably re sult of an old fistula, it is hard to see at this moment with the infection and cellulitis, so we ope anna the abscess, drained the pus, cultured that, drained the cavity, irrigated and then we sent that indentation that was in the middle of this abscess to the pathologist. Also, made sure we have no ot her disease in that region. The area was irrigated. Hemostasis obtained. Local anesthesia was appl ied and then the area was packed with quarter of an inch iodoform. Patient tolerated the procedure w ell. Patient sent to Recovery in stable condition. VICKI/KHURRAM Voice ID: [id number] Report ID: [id number]
== END 2023-04-03 16:38 | disposition home or self-care (01) ==
LOC: ER 16:00 → ERHOLD 17:58 → 4TH 21:34
PROVIDERS: ADMIT Family Medicine; ATTEND Internal Medicine
PROC: 0DJD8ZZ Inspection of Lower Intestinal Tract, Via Natural or Artificial Opening Endoscopic (ICD-10-PCS; 2023-04-03)
PROC: 0D9Q0ZX Drainage of Anus, Open Approach, Diagnostic (ICD-10-PCS; principal; 2023-04-03 11:00)
DX: K61.0 Anal abscess (principal); K64.4 Residual hemorrhoidal skin tags; K64.8 Other hemorrhoids; K62.89 Other specified diseases of anus and rectum
CPT/HCPCS: 93005; 87070; 85025 ×2; 81001; 80048; 36415; 83735; 87205; 85610; 80076; 88304; 87075; 84484; 80053; 83880; 74177; 71045; 90471; 46050; 45300; Q9967; Q2035; J2704; J2001; J3010; J1100; J2405 ×2; J0744; J7040; J7030 ×2; J0696; G0378